=== PATIENT | female | born 1965 | race Caucasian/White ===

== ENCOUNTER 2017-12-12 14:17 | Inpatient (IN) | payer MEDICAID, OTHER ==
[~2017-12-12] VITALS: Ht 160 cm; Wt 79.4 kg
[~2017-12-12 14:17] MED LIST: ZOLOFT
[2017-12-12 15:10] LABS: Urine Bacteria FEW /hpf (None Seen); Urine Blood 2+ /uL (Negative); Urine Mucus FEW (None Seen); Urine Specific Gravity 1.014 (1.001-1.035); Urine WBC 7 /hpf (0 - 5)
[2017-12-12 15:12] LABS: Basophils # (auto) 0.1 uL; Basophils % (auto) 0.4 % (0.0-2.0); Eosinophils # (auto) 0 uL; Eosinophils % (auto) 0.1 % (0.0-7.0); Hematocrit 39.5 % (36.0-46.0); Hemoglobin 13.3 g/dL (12.2-16.2); Lymphocytes # (auto) 0.7 uL; Lymphocytes % (auto) 4.5 % (10.0-50.0); Mean Corpuscular Hemoglobin 30.6 pg (28.0-32.0); Mean Corpuscular Hgb Conc. 33.6 g/dL (32.0-36.0); Mean Corpuscular Volume 90.9 fL (80.0-100.0); Monocytes # (auto) 0.7 uL; Monocytes % (auto) 4.8 % (0.0-12.0); Neutrophils # (auto) 13.8 uL; Neutrophils % (auto) 90.2 % (37.0-80.0); Nucleated Red Blood Cells % 0.1 %; Platelet Count (auto) 205 10^3/uL (140-450); Red Blood Cells 4.35 10^6/uL (4.0-5.20); Red Cell Distribution Width 13.9 % (11.8-14.3); White Blood Cell 15.2 10^3/uL (4.4-10.8)
[2017-12-12] MEDS ORDERED: KETOROLAC TROMETH 30 MG/ML 1ML VIAL IV ONE (15:30)
[2017-12-12 15:34] LABS: Calcium 8.9 mg/dL (8.5-10.1); Potassium 3.6 mmol/L (3.5-5.1)
[2017-12-12 15:40] LABS: BUN/Creatinine Ratio 14.7; Bilirubin, Total 0.6 mg/dL (0.2-1.0); Total Protein 7.9 g/dL (6.4-8.2)
[2017-12-12] MEDS ORDERED: SODIUM CHLORIDE 0.9% 1,000 ML IV ONE ×2 (15:40)
[2017-12-12] MEDS ORDERED: cefTRIAXone 1GM/50ML D5W 50 ML IV ONE (15:45)
[2017-12-12] MEDS ORDERED: MORPHINE SULFATE 4 MG/ML SYR/VIAL IV ONE ×2 (17:30→21:15)
[2017-12-12] MEDS ORDERED: ONDANSETRON HCL 4 MG/2 ML VIAL IV ONE (17:30)
[2017-12-12] MEDS ORDERED: ACETAMINOPHEN 325 MG TAB PO PRN (19:15)
[2017-12-12] MEDS ORDERED: DOCUSATE SOD 100 MG CAP PO PRN (19:15)
[2017-12-12] MEDS ORDERED: TEMAZEPAM 15 MG CAP PO PRN (19:15)
[2017-12-12] MEDS: MORPHINE SULFATE 4 MG/ML SYR/VIAL IV PRN (20:02)
[2017-12-12] MEDS: ONDANSETRON HCL 4 MG/2 ML VIAL IV PRN (20:03)
[2017-12-12] MEDS: SODIUM CHLORIDE 0.9% 1,000 ML IV SCH (21:35)
[2017-12-12 22:00] VITALS: BP 131/81
[2017-12-12] MEDS: FAMOTIDINE 20 MG TAB PO SCH (22:15)
[2017-12-12] MEDS: HYDROcodone-ACET 5/325MG TAB PO PRN (22:15)
[2017-12-13] MEDS: MORPHINE SULFATE 4 MG/ML SYR/VIAL IV PRN ×5 (00:06→21:43)
[2017-12-13] MEDS: HYDROcodone-ACET 5/325MG TAB PO PRN ×5 (02:17→23:49)
[2017-12-13] MEDS: SODIUM CHLORIDE 0.9% 1,000 ML IV SCH ×2 (05:13→11:52)
[2017-12-13 05:36] VITALS: BP 103/44
[2017-12-13 05:46] VITALS: BP 113/92
[2017-12-13 06:13] LABS: Basophils # (auto) 0 uL; Basophils % (auto) 0.1 % (0.0-2.0); Eosinophils # (auto) 0 uL; Eosinophils % (auto) 0.1 % (0.0-7.0); Hemoglobin 11.6 g/dL (12.2-16.2); Lymphocytes # (auto) 0.8 uL; Lymphocytes % (auto) 4.8 % (10.0-50.0); Mean Corpuscular Hemoglobin 30.5 pg (28.0-32.0); Mean Corpuscular Hgb Conc. 33.1 g/dL (32.0-36.0); Mean Corpuscular Volume 92.3 fL (80.0-100.0); Monocytes # (auto) 0.7 uL; Monocytes % (auto) 4.3 % (0.0-12.0); Neutrophils # (auto) 15.3 uL; Neutrophils % (auto) 90.7 % (37.0-80.0); Platelet Count (auto) 174 10^3/uL (140-450); Red Cell Distribution Width 14.3 % (11.8-14.3); White Blood Cell 16.9 10^3/uL (4.4-10.8)
[2017-12-13 06:27] LABS: Potassium 4.2 mmol/L (3.5-5.1)
[2017-12-13 06:30] LABS: BUN/Creatinine Ratio 12.7; Calcium 7.5 mg/dL (8.5-10.1)
[2017-12-13 06:43] LABS: Bilirubin, Total 0.4 mg/dL (0.2-1.0); Total Protein 6.3 g/dL (6.4-8.2)
[2017-12-13] MEDS ORDERED: LEVOTHYROXINE SODIUM 25 MCG TAB PO SCH (07:00)
[2017-12-13] MEDS: FAMOTIDINE 20 MG TAB PO SCH ×2 (08:10→21:50)
[2017-12-13 08:29] VITALS: BP 126/75
[2017-12-13] MEDS ORDERED: cefTRIAXone 1GM/50ML D5W 50 ML IV SCH (09:00)
[2017-12-13] MEDS ORDERED: MULTIPLE VITAMIN TAB PO SCH (10:00)
[2017-12-13 12:50] VITALS: BP 133/77
[2017-12-13] MEDS ORDERED: MANNITOL FTV 25% 12.5 GM/50 ML 50 ML IV ONE (13:30)
[2017-12-13] MEDS ORDERED: LEVO25TA6 PO (13:55)
[2017-12-13] MEDS: ONDANSETRON HCL 4 MG/2 ML VIAL IV PRN ×2 (15:35→20:47)
[2017-12-13 16:32] VITALS: BP 155/94
[2017-12-13] MEDS ORDERED: TAMSULOSIN HYDROCHLORIDE 0.4 MG CAP PO SCH (21:00)
[2017-12-13 22:00] VITALS: BP 153/84
== END 2017-12-13 23:58 | disposition short-term general hospital (02) | DRG 690 ==
LOC: ER 14:17 → OVERFLOW 14:18 → CENTRAL 20:30
PROVIDERS: ADMIT Internal Medicine; ATTEND Internal Medicine
DX: N13.6 Pyonephrosis (principal); E87.1 Hypo-osmolality and hyponatremia; E78.5 Hyperlipidemia, unspecified; E03.9 Hypothyroidism, unspecified; I70.90 Unspecified atherosclerosis; N18.2 Chronic kidney disease, stage 2 (mild); Z82.49 Family history of ischemic heart disease and other diseases of the circulatory system; Z87.442 Personal history of urinary calculi; Z79.899 Other long term (current) drug therapy; Z90.49 Acquired absence of other specified parts of digestive tract
CPT/HCPCS: 36415; 74176; 80053; 81001; 85025; 87086; 93005; 96361; 96374; 96375; J0696; J1885; J2405

== ENCOUNTER 2018-10-06 23:31 | Inpatient (IN) | payer OTHER ==
[~2018-10-06] VITALS: Ht 160 cm; Wt 74.4 kg
[~2018-10-06 23:31] MED LIST changes: +LEVO25TA6 PO; -ZOLOFT
[2018-10-07 00:14] LABS: Urine Amorphous Crystal MANY /hpf (None Seen); Urine Bacteria FEW /hpf (None Seen); Urine Blood 1+ /uL (Negative); Urine Specific Gravity 1.014 (1.001-1.035); Urine WBC 16 /hpf (0 - 5)
[2018-10-07 00:22] LABS: Basophils # (auto) 0 uL; Basophils % (auto) 0.2 % (0.0-2.0); Eosinophils # (auto) 0.1 uL; Eosinophils % (auto) 0.6 % (0.0-7.0); Hematocrit 38.6 % (36.0-46.0); Hemoglobin 12.7 g/dL (12.2-16.2); Lymphocytes # (auto) 1.5 uL; Lymphocytes % (auto) 12.1 % (10.0-50.0); Mean Corpuscular Hemoglobin 29.7 pg (28.0-32.0); Mean Corpuscular Hgb Conc. 32.9 g/dL (32.0-36.0); Mean Corpuscular Volume 90.2 fL (80.0-100.0); Monocytes # (auto) 0.4 uL; Monocytes % (auto) 3.4 % (0.0-12.0); Neutrophils # (auto) 10.3 uL; Neutrophils % (auto) 83.7 % (37.0-80.0); Platelet Count (auto) 243 10^3/uL (140-450); Red Blood Cells 4.27 10^6/uL (4.0-5.20); Red Cell Distribution Width 13.3 % (11.8-14.3); White Blood Cell 12.3 10^3/uL (4.4-10.8)
[2018-10-07 00:37] LABS: Albumin 3.9 g/dL (3.4-5.0); Calcium 9.3 mg/dL (8.5-10.1); Potassium 3.9 mmol/L (3.5-5.1)
[2018-10-07 00:39] LABS: BUN/Creatinine Ratio 21.6
[2018-10-07 00:42] LABS: Bilirubin, Total 0.2 mg/dL (0.2-1.0); Total Protein 7.5 g/dL (6.4-8.2)
[2018-10-07] MEDS ORDERED: LEVOFLOXACIN 750MG 150 ML IV ONE (03:30)
[2018-10-07] MEDS ORDERED: fentaNYL CITRATE 100 MCG/2 ML VL IV ONE (03:30)
[2018-10-07] MEDS ORDERED: KETOROLAC TROMETH 15 mg/ml 1ML VL IV ONE ×2 (03:30→14:00)
[2018-10-07] MEDS ORDERED: KETOROLAC TROMETH 30 MG/ML 1ML VIAL ONE (03:40)
[2018-10-07] MEDS ORDERED: SODIUM CHLORIDE 0.9% 1,000 ML IV ONE ×3 (06:47→08:31)
[2018-10-07] MEDS ORDERED: NITROGLYCERIN 0.4 MG SL TAB SL PRN (07:00)
[2018-10-07] MEDS ORDERED: MORPHINE SULFATE 4 MG/ML SYR/VIAL IV PRN (07:00)
[2018-10-07] MEDS ORDERED: TEMAZEPAM 15 MG CAP PO PRN (07:00)
[2018-10-07] MEDS ORDERED: ACETAMINOPHEN 325 MG TAB PO PRN (07:00)
[2018-10-07] MEDS ORDERED: MORPHINE SULF INJ 2 MG/ML SYRINGE 1ML IV PRN (07:00)
[2018-10-07] MEDS ORDERED: DOCUSATE SOD 100 MG CAP PO PRN (07:00)
[2018-10-07] MEDS ORDERED: ONDANSETRON HCL 4 MG/2 ML VIAL IV PRN (07:00)
[2018-10-07] MEDS: FAMOTIDINE 20 MG TAB PO SCH ×2 (09:53→21:42)
[2018-10-07] MEDS: amLODIPine BESYLATE 5 MG TAB PO SCH (09:53)
[2018-10-07] MEDS: ZINC SULFATE 220mg CAP or TAB PO SCH (09:53)
[2018-10-07] MEDS: ENOXAPARIN SOD 40 MG/0.4 ML SYRINGE SC SCH (09:54)
[2018-10-07] MEDS: ASCORBIC ACID 500 MG TAB PO SCH ×2 (09:54→21:42)
[2018-10-07] MEDS ORDERED: cefTRIAXone 1GM/50ML D5W 50 ML IV ONE (10:00)
[2018-10-07] MEDS: SODIUM CHLORIDE 0.9% 1,000 ML IV SCH ×2 (10:34→16:25)
[2018-10-07 12:00] VITALS: BP 139/78
[2018-10-07 15:46] VITALS: BP 142/79
[2018-10-07] MEDS ORDERED: LEV88T (17:37)
[2018-10-07] MEDS ORDERED: AMLO5TAB15 (17:37)
[2018-10-07] MEDS ORDERED: LORA0.5T12 (17:37)
[2018-10-07] MEDS ORDERED: PRAV20TA3 PO (17:37)
[2018-10-07] MEDS ORDERED: TAMSULOSIN HYDROCHLORIDE 0.4 MG CAP PO SCH (18:00)
[2018-10-07] MEDS ORDERED: LORazepam 0.5 MG TAB PO PRN (18:30)
[2018-10-07 22:00] VITALS: BP 134/82
[2018-10-07] MEDS ORDERED: PRAVASTATIN SODIUM 20 MG TAB PO SCH (22:00)
[2018-10-08] MEDS: SODIUM CHLORIDE 0.9% 1,000 ML IV SCH ×2 (00:29→08:47)
[2018-10-08 05:00] VITALS: BP 130/83
[2018-10-08 05:50] LABS: Basophils # (auto) 0.1 uL; Basophils % (auto) 1.2 % (0.0-2.0); Eosinophils # (auto) 0.2 uL; Eosinophils % (auto) 3.2 % (0.0-7.0); Hematocrit 37.6 % (36.0-46.0); Hemoglobin 12.4 g/dL (12.2-16.2); Lymphocytes # (auto) 1.6 uL; Lymphocytes % (auto) 31.8 % (10.0-50.0); Mean Corpuscular Hgb Conc. 33.1 g/dL (32.0-36.0); Mean Corpuscular Volume 90.7 fL (80.0-100.0); Monocytes # (auto) 0.5 uL; Neutrophils # (auto) 2.8 uL; Neutrophils % (auto) 54.8 % (37.0-80.0); Nucleated Red Blood Cells % 0.1 %; Platelet Count (auto) 187 10^3/uL (140-450); Red Blood Cells 4.15 10^6/uL (4.0-5.20); Red Cell Distribution Width 13.2 % (11.8-14.3); White Blood Cell 5.1 10^3/uL (4.4-10.8)
[2018-10-08 06:35] LABS: Albumin 3.1 g/dL (3.4-5.0); BUN/Creatinine Ratio 14.1; Calcium 8.4 mg/dL (8.5-10.1); Potassium 3.7 mmol/L (3.5-5.1)
[2018-10-08 06:38] LABS: Bilirubin, Total 0.3 mg/dL (0.2-1.0); Total Protein 6.3 g/dL (6.4-8.2)
[2018-10-08] MEDS ORDERED: LEVOTHYROXINE SODIUM 88 MCG TAB PO SCH (07:00)
[2018-10-08 08:22] VITALS: BP 113/68
[2018-10-08] MEDS ORDERED: cefTRIAXone 1GM/50ML D5W 50 ML IV SCH (09:00)
[2018-10-08] MEDS: ASCORBIC ACID 500 MG TAB PO SCH (09:25)
[2018-10-08] MEDS: FAMOTIDINE 20 MG TAB PO SCH (09:25)
[2018-10-08] MEDS: ZINC SULFATE 220mg CAP or TAB PO SCH (09:26)
[2018-10-08] MEDS: amLODIPine BESYLATE 5 MG TAB PO SCH (09:27)
[2018-10-08] MEDS: ENOXAPARIN SOD 40 MG/0.4 ML SYRINGE SC SCH (10:00)
[2018-10-08] MEDS ORDERED: LEVOFLOXACIN 500 MG TAB PO SCH (12:00)
[2018-10-08 13:00] VITALS: BP 138/80
[2018-10-08 17:15] VITALS: BP 137/84
[2018-10-08 17:44] VITALS: BP 137/54
== END 2018-10-08 18:54 | disposition home or self-care (01) | DRG 690 ==
LOC: ER 23:32 → OVERFLOW 23:33 → CENTRAL 10-07 11:44
PROVIDERS: ADMIT Emergency Medicine; ATTEND Emergency Medicine
DX: N13.6 Pyonephrosis (principal); I10 Essential (primary) hypertension; E78.5 Hyperlipidemia, unspecified; Z87.442 Personal history of urinary calculi; Z82.49 Family history of ischemic heart disease and other diseases of the circulatory system; Z90.49 Acquired absence of other specified parts of digestive tract
CPT/HCPCS: 36415; 74018; 74176; 76775; 80053; 81001; 85025; 96365; 96366; 96367; 96372; G0378; J0696; J1885; J1956

== ENCOUNTER 2018-11-20 06:36 | Emergency (ER) | payer OTHER ==
[~2018-11-20] VITALS: Ht 160 cm; Wt 70.3 kg
[~2018-11-20 06:36] MED LIST changes: +AMLO5TAB15; +LEV88T; +LORA0.5T12; +PRAV20TA3 PO
[2018-11-20 06:53] LABS: Urine WBC None Seen /hpf (0 - 5)
[2018-11-20 07:16] LABS: Urine Bacteria NONE SEEN /hpf (None Seen); Urine Blood Negative /uL (Negative); Urine Specific Gravity 1.007 (1.001-1.035)
[2018-11-20 07:19] LABS: Basophils # (auto) 0 uL; Basophils % (auto) 0.9 % (0.0-2.0); Eosinophils # (auto) 0.2 uL; Eosinophils % (auto) 2.9 % (0.0-7.0); Hemoglobin 13.6 g/dL (12.2-16.2); Lymphocytes # (auto) 1.3 uL; Lymphocytes % (auto) 23.5 % (10.0-50.0); Mean Corpuscular Hemoglobin 29.6 pg (28.0-32.0); Mean Corpuscular Hgb Conc. 33.1 g/dL (32.0-36.0); Mean Corpuscular Volume 89.4 fL (80.0-100.0); Monocytes # (auto) 0.3 uL; Neutrophils # (auto) 3.7 uL; Neutrophils % (auto) 66.7 % (37.0-80.0); Platelet Count (auto) 241 10^3/uL (140-450); Red Blood Cells 4.58 10^6/uL (4.0-5.20); Red Cell Distribution Width 13.7 % (11.8-14.3); White Blood Cell 5.5 10^3/uL (4.4-10.8)
[2018-11-20 07:35] LABS: Albumin 3.9 g/dL (3.4-5.0); BUN/Creatinine Ratio 14.9; Calcium 9.3 mg/dL (8.5-10.1); Potassium 3.8 mmol/L (3.5-5.1)
[2018-11-20 07:37] LABS: Bilirubin, Total 0.4 mg/dL (0.2-1.0); Total Protein 7.4 g/dL (6.4-8.2)
[2018-11-20] MEDS ORDERED: SODIUM CHLORIDE 0.9% 1,000 ML IV ONE ×2 (09:58)
[2018-11-20] MEDS ORDERED: TAMSULOSIN HYDROCHLORIDE 0.4 MG CAP PO ONE (10:00)
[2018-11-20] MEDS ORDERED: KETOROLAC TROMETH 30 MG/ML 1ML VIAL IV ONE (10:00)
[2018-11-20] MEDS ORDERED: cloNIDine HCL 0.1 MG TAB PO ONE (10:00)
[2018-11-20 11:50] VITALS: BP 120/68
== END 2018-11-20 12:50 | disposition home or self-care (01) ==
LOC: ER 06:41
DX: N20.0 Calculus of kidney (principal); I10 Essential (primary) hypertension; E78.5 Hyperlipidemia, unspecified; Z90.89 Acquired absence of other organs
CPT/HCPCS: 36415; 74176; 80053; 81001; 84443; 85025; 96360; 99284; J7030

== ENCOUNTER 2024-03-23 13:45 | Inpatient (IN) | payer BC, OTHER ==
[~2024-03-23] VITALS: Ht 157.5 cm; Wt 80.7 kg
[~2024-03-23 13:45] MED LIST changes: +AMLO1TAB22 PO; -AMLO5TAB15; -LEV88T; +LEVO-177; +LORA-1121; -LORA0.5T12
--- NOTE | 2024-03-23 14:11 | ECG ---
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
--- NOTE | 2024-03-23 14:27 | DVH ---
EXAM: XY CHEST TWO VIEWS ROUTINE CLINICAL HISTORY: sob COMPARISON: None TECHNIQUE: Frontal and lateral view of the chest was obtained FINDINGS: Lines and Tubes: None Lungs: No focal consolidation. Pleura: No effusion. No pneumothorax. Cardiomediastinal contours: Unremarkable Bones: No acute osseous abnormality. IMPRESSION: No acute cardiopulmonary disease.
[2024-03-23 15:29] LABS: Basophils # (auto) 0 10 ^3/uL (0-0.2); Basophils % (auto) 0.3 % (0.0-2.0); Eosinophils # (auto) 0 10 ^3/uL (0-0.8); Hematocrit 38.5 % (36.0-46.0); Hemoglobin 12.8 g/dL (12.2-16.2); Lymphocytes # (auto) 0.7 10 ^3/uL (0.4-5.4); Lymphocytes % (auto) 17.3 % (10.0-50.0); Mean Corpuscular Hemoglobin 30.1 pg (28.0-32.0); Mean Corpuscular Hgb Conc. 33.2 g/dL (32.0-36.0); Mean Corpuscular Volume 90.7 fL (80.0-100.0); Monocytes # (auto) 0.1 10 ^3/uL (0-1.3); Monocytes % (auto) 2.7 % (0.0-12.0); Neutrophils % (auto) 79.7 % (37.0-80.0); Nucleated Red Blood Cells % 0.1 %; Platelet Count (auto) 137 10^3/uL (140-450); Red Blood Cells 4.25 10^6/uL (4.0-5.20); Red Cell Distribution Width 14.8 % (11.8-14.3); White Blood Cell 3.8 10^3/uL (4.4-10.8)
[2024-03-23 15:35] LABS: Alanine Aminotransferase 17 U/L (7-40); Alkaline Phosphatase 105 U/L (46-116); Anion Gap 6 (5-15); Aspartate Aminotransferase 31 U/L (13-40); BUN/Creatinine Ratio 19.1 (10.0-20.0); Blood Urea Nitrogen 17 mg/dL (9-23); Calcium 8.7 mg/dL (8.7-10.4); Carbon Dioxide 26 mmol/L (20-31); Chloride 107 mmol/L (98-107); Sodium 139 mmol/L (136-145)
[2024-03-23] MEDS: ALBUTEROL SULF 2.5 MG/0.5ML(0.5%) NEB SOLN NEB ONE (15:42)
[2024-03-23] MEDS: IPRATROPIUM BROM 0.5 MG/2.5ML INH SOL NEB ONE (15:42)
[2024-03-23 15:47] LABS: Bilirubin, Total 0.2 mg/dL (0.2-1.0); Glucose 117 mg/dL (74-106); Potassium 3.3 mmol/L (3.5-5.1)
--- NOTE | 2024-03-23 15:55 | ED.PDOC ---
History of Present Illness HPI Comments 59-year-old female presents with a chief complaint of SOB and flu-like symptoms since Tuesday. Patient reports that she tested positive for COVID-19 on Thursday March 21, 2024. Patient is complaining of SOB and sating 87-89% on room air. Patient was placed on 4L/NC and is now sating at 96%. Patient reports the she also has a cough, body aches, and chills, and intermittent fevers. No other symptoms or modifying factors present at this time. Chief Complaint: Shortness of Breath Time Seen by MD: 15:05 Primary Care Provider: LUCIEN Reviewed Notes: Medications, Allergies Allergies: Coded Allergies: NO KNOWN ALLERGIES (Unverified , 12/19/11) Home Meds Reported Medications Pravastatin Sodium (PRAVACHOL TABLET) 20 Mg Tb, 10 MG PO DAILY, #30 TAB 5 Refills 10/07/18 Amlodipine Besylate (Amlodipine Besylate) 5 Mg Tab 10/07/18 Levothyroxine Sodium (Levothyroxine Sodium) 88 Mcg Tab 10/07/18 Lorazepam (ATIVAN TABLET) 0.5 Mg Tb 10/07/18 Levothyroxine Sodium (Levothyroxine Sodium) 25 Mcg Tab, 25 MCG PO QAM, MCG 12/13/17 Information Source: Patient Mode of Arrival: Ambulatory Severity: Moderate Timing: Days Duration: Since onset Prehospital treatment: None Past Medical History PAST MEDICAL HISTORY: High Lipids, HTN, Kidney Stones, Thyroid Surgical History: Appendectomy BEHAVIORAL SCIENCE CHAIR History: Denies all BEHAVIORAL SCIENCE CHAIR Hx Family History Family History: Reviewed,noncontributory to illness Social History Smoker: Non-Smoker Alcohol: Rarely Drugs: Denies Drug Use Lives In: Home Constitutional: reports: chills; denies: diaphoresis, fatigue, fever, malaise, sweats, weakness, others EENTM: denies: blurred vision, double vision, ear bleeding, ear discharge, ear drainage, ear pain, ear ringing, eye pain, eye redness, hearing loss, mouth charlene n, mouth swelling, nasal discharge, nose bleeding, nose congestion, nose pain, photophobia, tearing, throat pain, throat swelling, voice changes, others Respiratory: reports: cough, shortness of breath; denies: hemoptysis, orthopnea, SOB at rest, SOB with excertion, stridor, wheezing, others Cardiovascular: denies: chest pain, dizzy spells, diaphoresis, Dyspnea on exertion, edema, irregular heart beat, left arm pain, lightheadedness, palpitations, PND, syncope, others Gastrointestinal: denies: abdomen distended, abdominal pain, blood streaked bowels, constipated, diarrhea, dysphagia, difficulty swallowing, hematemesis, melena, nausea, poor appetite, poor fluid intake, rectal bleeding, rectal pain, vomiting, others Genitourinary: denies: abnormal vagina bleeding, burning, dyspareunia, dysuria, flank pain, frequency, hematuria, incontinence, pain, , vagina discharge, urgency, others Neurological: denies: dizziness, fainting, headache, left sided numbness, left sided weakness, numbness, paresthesia, pre-existing deficit, right sided numbness, right sided weakness, seizure, speech problems, tingling, tremors, weakness, others Musculoskeletal: denies: back pain, gout, joint pain, joint swelling, muscle pain, muscle stiffness, neck pain, others Integumetry: denies: bruises, change in color, change in hair/nails, dryness, laceration, lesions, lumps, rash, wounds, others Allergic/Immunocompromised: denies: Difficulty Healing, Frequent Infections, Hives, Itching, others Hematologic/Lymphatic: denies: anemia, blood clots, easy bleeding, easy bruising, swollen glands, others Endocrine: denies: excessive hunger, excessive sweating, excessive thirst, excessive urination, flushing, intolerance to cold, intolerance to heat, unexplained weight gain, unexplained weight loss, others Psychiatric: denies: anxiety, bipolar disorder, depression, hopeless, panic disorder, schizophrenia, sleepless, suicidal, others All Other Systems: Reviewed and Negative Physical Exam General Appearance: Moderate Distress, Normal HEENT: Normal ENT Inspection, Pharynx Normal, TMs Normal Neck: Full Range of Motion, Non-Tender, Normal, Normal Inspection Respiratory: Chest Non-Tender, Rhonchi, Other (ON 4L via NC ) Cardiovascular: No Edema, No JVD, No Murmur, No Gallop, Normal Peripheral Pulses, Regular Rate/Rhythm Breast Exam: Deferred Gastrointestinal: No Organomegaly, Non Tender, No Pulsatile Mass, Normal Bowel Sounds, Soft Genitalia: Deferred Pelvic: Deferred Rectal: Deferred Extremities: No calf tenderness, Normal capillary refill, Normal inspection, Normal range of motion, Non-tender, No pedal edema Musculoskeletal : Apperance: Normal Neurologic: Alert, 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 Was a procedure done?: No EKG EKG : Pulse Rate (adult): 118 [place]: Normal Cardiac Rhythm: ST, PVC's Block: None Hypertrophy: None ST: Normal Differential Dx Considerations may include: Pneumonia, COVID pneumonia, bronchiolitis, reactive airway disease, PE X-Ray, Labs, Meds, VS Vital Signs Date Time Temp Pulse Resp B/P (MAP) Pulse Ox O2 Delivery O2 Flow Rate FiO2 03/23/24 16:29 84 18 97 Room Air* 0 21 03/23/24 16:20 84 17 95 Nasal Cannula 4.0 03/23/24 16:20 98.9 84 18 111/61 (78) 95 98.9 03/23/24 15:55 118 03/23/24 15:43 Nasal Cannula* 4 36 03/23/24 14:10 118 03/23/24 14:02 20 96 Nasal Cannula 4.0 03/23/24 14:02 99.9 56 20 106/47 (66) 89 Lab Test 03/23/24 15:50 03/23/24 14:39 Range/Units Troponin I High Sensitivity 4 3 L </=34 ng/L White Blood Count 3.8 L 4.4-10.8 10^3/uL Red Blood Count 4.25 4.0-5.20 10^6/uL Hemoglobin 12.8 12.2-16.2 g/dL Hematocrit 38.5 36.0-46.0 % Mean Corpuscular Volume 90.7 80.0-100.0 fL Mean Corpuscular Hemoglobin 30.1 28.0-32.0 pg Mean Corpuscular Hemoglobin Concent 33.2 32.0-36.0 g/dL Red Cell Distribution Width 14.8 H 11.8-14.3 % Platelet Count 137 L 140-450 10^3/uL Mean Platelet Volume 7.7 6.9-10.8 fL Neutrophils (%) (Auto) 79.7 37.0-80.0 % Lymphocytes (%) (Auto) 17.3 10.0-50.0 % Monocytes (%) (Auto) 2.7 0.0-12.0 % Eosinophils (%) (Auto) 0.0 0.0-7.0 % Basophils (%) (Auto) 0.3 0.0-2.0 % Neutrophils # (Auto) 3.0 1.6-8.6 10 ^3/uL Lymphocytes # (Auto) 0.7 0.4-5.4 10 ^3/uL Monocytes # (Auto) 0.1 0-1.3 10 ^3/uL Eosinophils # (Auto) 0 0-0.8 10 ^3/uL Basophils # (Auto) 0 0-0.2 10 ^3/uL Nucleated Red Blood Cells 0.1 % D-Dimer, Quantitative 0.63 H 0.0-0.49 mg/L FEU Sodium Level 139 136-145 mmol/L Potassium Level 3.3 L 3.5-5.1 mmol/L Chloride Level 107 98-107 mmol/L Carbon Dioxide Level 26 20-31 mmol/L Anion Gap 6 5-15 Blood Urea Nitrogen 17 9-23 mg/dL Creatinine 0.89 0.550-1.02 mg/dL Glomerular Filtration Rate Calc 74 >90 mL/min BUN/Creatinine Ratio 19.1 10.0-20.0 Serum Glucose 117 H 74-106 mg/dL Calcium Level 8.7 8.7-10.4 mg/dL Total Bilirubin 0.2 0.2-1.0 mg/dL Aspartate Amino Transferase (AST) 31 13-40 U/L Alanine Aminotransferase (ALT) 17 7-40 U/L Alkaline Phosphatase 105 46-116 U/L B-Type Natriuretic Peptide 168.76 0-100 pg/mL Total Protein 6.0 5.7-8.2 g/dL Albumin 4.0 3.2-4.8 g/dL Current Medications Medications (Trade) Dose Ordered Sig/Saturnino Route Start Time Stop Time Status Last Admin Sodium Chloride 500 ml @ 500 mls/hr Q1H ONCE IV 03/23/24 15:15 03/23/24 16:14 DC 03/23/24 16:13 Albuterol (Ventolin Medneb) 5 mg ONCE ONCE NEB 03/23/24 15:30 03/23/24 15:31 DC 03/23/24 15:42 Ipratropium Pillager (Atrovent Medneb) 0.5 mg ONCE ONCE NEB 03/23/24 15:30 03/23/24 15:31 DC 03/23/24 15:42 Dexamethasone Sodium Phosphate (Decadron Injection) 10 mg ONCE ONCE IV 03/23/24 15:30 03/23/24 15:31 DC 03/23/24 16:05 PATIENT: GALO PENALOZA: [id number]: [id number] : 1965 LOC: ER ROOM / BED: / AGE / SEX: 59 / F ADM STATUS: REG ER SERVICE 1353 ORDERING PHYSICIAN: CONNOR ROCHA MD PROCEDURE(s): CXR2 - CHEST TWO VIEWS ROUTINE REASON: sob ORDER NUMBER(s): [id number], ACCESSION NUMBER(s): [id number] EXAM: XY CHEST TWO VIEWS ROUTINE CLINICAL HISTORY: sob COMPARISON: None TECHNIQUE: Frontal and lateral view of the chest was obtained FINDINGS: Lines and Tubes: None Lungs: No focal consolidation. Pleura: No effusion. No pneumothorax. Cardiomediastinal contours: Unremarkable Bones: No acute osseous abnormality. IMPRESSION: No acute cardiopulmonary disease. ATED BY: LIO CUELLO MD DICTATED DATE/TIME: 03/23/241425 SIGNED BY: LIO CUELLO MD SIGNED DATE/TIME: 03/23/241425 59-year-old female presents here with shortness of breath. She is known to be positive for COVID at outside facility. She states that she has been having chest discomfort and shortness of breath. She was found to be saturating in the 80s. Was placed on oxygen here in the ER. Patient has been given ipratropium and albuterol in the ER. D-dimer has been ordered and is elevated. I consider ed possible PE and a CT angio has been ordered and is pending. Chest x-ray with no evidence of acute pneumonia. At this time hospitalist team has been consulted for admission. Time of 1ST Reevaluation: 16:01 Reevaluation 1ST: Unchanged Patient Education/Counseling: Diagnosis, Treatment, Prognosis Family Education/Counseling: Diagnosis, Treatment, Prognosis Departure 1 Departure Time of Disposition: 16:55 Impression: Primary Impression: Hypoxia Disposition: 30 STILL A PATIENT Admit to: Tele Condition: Guarded Critical Care Note Critical Care Time?: No Stability Stability form required: No Heart Score Heart Score: Heart Score Response (Comments) Value History N/A 0 EKG N/A 0 Age N/A 0 Risk Factors N/A 0 Troponin N/A 0 Total 0 I personally scribed for CONNOR ROCHA MD ([email or web address]) on 03/23/24 at 15:55. Electronically submitted by Jay Jay Hilton ([email or web address]). I personally scribed for CONNOR ROCHA MD ([email or web address]) on 03/23/24 at 15:56. Electronically submitted by Jay Jay Hilton ([email or web address]). I personally scribed for CONNOR ROCHA MD ([email or web address]) on 03/23/24 at 17:09. Electronically submitted by Jay Jay Hilton ([email or web address]). CONNOR ROCHA MD Mar 23, 2024 15:55
[2024-03-23] MEDS: DexAMETHasone SOD PHOS 10MG/1ML VIAL INJ IV ONE (16:05)
[2024-03-23] MEDS: SODIUM CHLORIDE 0.9% 500 ML IV ONE (16:13)
[2024-03-23 16:29] VITALS: PULSE 84; RESP 18; O2SAT 97
[2024-03-23] MEDS: IOHEXOL 350 MG/ML 100ML IJ ONE (21:39)
--- NOTE | 2024-03-23 22:26 | DVH ---
Procedure: CT CT ANGIO CHEST CONTRAST Reason for study/Clinical History: ro PE Comparison Study: None available at time of dictation. Exam Date: 03/23/2024 09:36 PM Radiation Dose Information: CT Dose: CTDI volume is 20.29 mGy. Dose-length product is 1506.22 mGy*cm Contrast: Type of contrast: Omnipaque 350 Contrast inject: 100 mL Contrast wasted:0 TECHNIQUE: After the uneventful administration of intravenous contrast intravenously, CT imaging was performed through the chest. Coronal and sagittal reformations were performed by the technologist. Sagittal and coronal MIP images were submitted for evaluation. FINDINGS: Lower Neck: Visualized portions of the thyroid gland are unremarkable. Aorta and Vasculature: Normal caliber of thoracic aorta. Lymph Nodes: No enlarged intrathoracic lymph nodes. Mediastinum: Heart size is normal. There is no pericardial effusion. The esophagus is unremarkable. Lungs: Airspace disease posterior costophrenic angles bilaterally pleural effusion or significant pne umothorax. No suspicious pulmonary nodule or mass. Musculoskeletal: No acute osseous abnormality. Osseous hemangioma at T11 Upper abdomen: Limited portions of the upper abdomen are unremarkable. IMPRESSION: 1. Airspace disease in the posterior costophrenic angles bilaterally. 2. No findings of pulmonary artery hypertension. 3. No findings of pulmonary emboli. All CT scans at this medical facility are performed using dose modulation techniques as appropriate t o a performed exam including the following: Automated exposure control was utilized; adjustment of th e MA and/or KV according to patient size; and use of iterative reconstruction technique.
--- NOTE | 2024-03-23 22:44 | DVHHPRES ---
History of Present Illness Resident Creating Document: ALICE GARY RESDIENT History of Present Illness This is a 59-year-old female past medical history of hypothyroidism, hypertension, dyslipidemia and kidney stone came to the hospital due to shortness of breaths. Per patient, she had fever, chills and body pain 5 days back, when to urgent care, and was recommended doxycycline, zinc and vitamin-D. But her symptoms progressively worsened, and since 2 days she developed shortness of breaths and chest pain. Per patient, the patient was also told of having COVID-19 2 days back. Patient also reports cough, chills, fever and generalized body pain. Patient denies nausea, vomiting, headache, dysuria, or any recent sick contact. PMHx: hypothyroidism, hypertension, dyslipidemia and kidney stone PSHx: Appendectomy Social history: Patient lives with the family at home, ex-smoker, denies any other drug use Home medication: Amlodipine 10 mg, pravastatin, Lexapro, levothyroxine 75 mcg, aspirin Allergic history: No known allergies Review of Systems Review of Systems General: Reports generalized body pain and fever HEENT: No headaches, visiual changes, hearing loss, tinnitus, nasal congestion and discharge, and sore throat. Cardiovascular: Denies chest pain, palpitations, dyspnea on exertion, orthopnea, or claudication. Respiratory: Reports cough, chest pain, and shortness of breaths Gastrointestinal: Denies nausea, vomiting, dysphagia, odynophagia, heartburn, abdominal pain, flatulence, bloating, diarrhea, constipation, change in stool, or blood in stool. Genitourinary: No dysuria, hematuria, discharge, frequency, urgency, nocturia, incontinence, and urinary retention. Endocrine: No heat or cold intolerance, polydipsia, polyuria, and polyphagia. Neurological: No dizziness, extremity weakness and numbness, tremors, gait disturbance, seizures, and memory impairment. Psychiatric: Denies depression, anxiety,or insomnia. Musculoskeletal: Denies neck pain, stiffness and swelling, back pain, muscle weakness, joint pain, stiffness, swelling, or limited range of motion. Skin: No rashes, itching, skin lesion, changes in hair, nail, skin texture and breast. Hematologic/Lymphatic: Denies easy bruising, bleeding tendencies, or lymph node enlargement. Allergies: Coded Allergies: NO KNOWN ALLERGIES (Unverified , 12/19/11) Exam Vital Signs Vital Signs Date Time Temp Pulse Resp B/P (MAP) Pulse Ox O2 Delivery O2 Flow Rate FiO2 03/23/24 21:04 99.7 81 20 114/71 (85) 94 99.7 03/23/24 16:29 Room Air* 0 21 Exam General Appearance: Alert, Oriented X3, Cooperative, in moderate respiratory distress HEENT: Atraumatic, PERRLA, EOMI, Mucous membrane moist/pink Respiratory: Left-sided lower zone crackles, with right-sided mid and lower zone crackles Cardiovascular: Regular rate, Normal S1, Normal S2, No murmurs, no chest wall tenderness Abdominal: Normal bowel sounds, Soft, No tenderness, No hepatospenomegaly, No masses Extremities: No clubbing, No cyanosis, No edema, Normal pulses, No tenderness/swelling Skin: No rashes, No breakdown, No significant lesion Neuro: Normal gait, Normal speech, Strength at 5/5 X4 ext, Normal tone, Sensation intact, Cranial nerves 3-12 NL, Reflexes 2+ Psych/Mental Status: Mental status NL, Mood NL Labs/Xrays Labs Test 03/23/24 20:55 03/23/24 15:50 03/23/24 14:39 Range/Units Urine Test Negative Negative Troponin I High Sensitivity 4 </=34 ng/L Beta HCG, Quantitative 3.8 1.5-4.2 mIU/mL White Blood Count 3.8 L 4.4-10.8 10^3/uL Red Blood Count 4.25 4.0-5.20 10^6/uL Hemoglobin 12.8 12.2-16.2 g/dL Hematocrit 38.5 36.0-46.0 % Mean Corpuscular Volume 90.7 80.0-100.0 fL Mean Corpuscular Hemoglobin 30.1 28.0-32.0 pg Mean Corpuscular Hemoglobin Concent 33.2 32.0-36.0 g/dL Red Cell Distribution Width 14.8 H 11.8-14.3 % Platelet Count 137 L 140-450 10^3/uL Mean Platelet Volume 7.7 6.9-10.8 fL Neutrophils (%) (Auto) 79.7 37.0-80.0 % Lymphocytes (%) (Auto) 17.3 10.0-50.0 % Monocytes (%) (Auto) 2.7 0.0-12.0 % Eosinophils (%) (Auto) 0.0 0.0-7.0 % Basophils (%) (Auto) 0.3 0.0-2.0 % Neutrophils # (Auto) 3.0 1.6-8.6 10 ^3/uL Lymphocytes # (Auto) 0.7 0.4-5.4 10 ^3/uL Monocytes # (Auto) 0.1 0-1.3 10 ^3/uL Eosinophils # (Auto) 0 0-0.8 10 ^3/uL Basophils # (Auto) 0 0-0.2 10 ^3/uL Nucleated Red Blood Cells 0.1 % D-Dimer, Quantitative 0.63 H 0.0-0.49 mg/L FEU Sodium Level 139 136-145 mmol/L Potassium Level 3.3 L 3.5-5.1 mmol/L Chloride Level 107 98-107 mmol/L Carbon Dioxide Level 26 20-31 mmol/L Anion Gap 6 5-15 Blood Urea Nitrogen 17 9-23 mg/dL Creatinine 0.89 0.550-1.02 mg/dL Glomerular Filtration Rate Calc 74 >90 mL/min BUN/Creatinine Ratio 19.1 10.0-20.0 Serum Glucose 117 H 74-106 mg/dL Calcium Level 8.7 8.7-10.4 mg/dL Total Bilirubin 0.2 0.2-1.0 mg/dL Aspartate Amino Transferase (AST) 31 13-40 U/L Alanine Aminotransferase (ALT) 17 7-40 U/L Alkaline Phosphatase 105 46-116 U/L B-Type Natriuretic Peptide 168.76 0-100 pg/mL Total Protein 6.0 5.7-8.2 g/dL Albumin 4.0 3.2-4.8 g/dL Assessment/Plan Assessment/Plan Acute hypoxic respiratory failure, likely due pneumonia Sepsis, likely due to pneumonia Pneumonia, likely due to Gram-positive Gram-negative bacteria/viral Chest x-ray shows bilateral lower zone infiltration Chest CT shows, airspace disease in the posterior costophrenic angles bilaterally Check influenza type a, type B COVID-19, MRSA nares in blood/sputum culture Empiric antibiotics of cefepime and doxycycline Breathing treatment Oxygen through nasal cannula History of hypothyroidism Continue levothyroxine Dyslipidemia continue atorvastatin Hypokalemia, repleted Ruled out pulmonary emboli D-dimer is raised at 0.63 CT angiogram shows no pulmonary emboli DIET: Cardiac diet DVT PROPHYLAXIS: Lovenox CODE STATUS: Goal of care discussed for more than 23 minutes, full DISPOSITION: Med/surge Patient's status and paln discussed with the patient. Case discussed with Dr. Candelario Plan discussed with: Patient, Other (RN) Date of Service: Mar 23, 2024 Billing Provider: CANDY CANDELARIO MD Common Visit Codes: [id number] INP/OBS CARE (HIGH) JUANITA GARYSushila RESDIENT Mar 23, 2024 22:44 CANDY CANDELARIO MD Mar 25, 2024 00:18
[2024-03-23] MEDS ORDERED: NITROGLYCERIN 0.4 MG SL TAB SL PRN (22:45)
[2024-03-23 23:23] VITALS: PULSE 70; RESP 19; O2SAT 93
[2024-03-24] VITALS (15 sets, daily range): BP systolic 92–114; BP diastolic 53–71; PULSE 55–90; RESP 16–18; TEMP 98.4–99.7; O2SAT 91–99
[2024-03-24] MEDS: ACETAMINOPHEN 325 MG TAB PO PRN (00:16)
[2024-03-24] MEDS: SODIUM CHLORIDE 0.9% 1,000 ML IV ONE (00:45)
[2024-03-24] MEDS: CEFEPIME 1GM/ 50ML 50 ML IV ONE (01:12)
[2024-03-24] MEDS: POTASSIUM CHL 20 Meq TABLET PO ONE (01:16)
[2024-03-24] MEDS: ENOXAPARIN SOD 40 MG/0.4 ML SYRINGE SC ONE (01:17)
[2024-03-24] MEDS: DOXYCYCLINE 100MG/100ML 100 ML IV SCH (02:53)
[2024-03-24 03:18] LABS: Basophils # (auto) 0 10 ^3/uL (0-0.2); Basophils % (auto) 0.1 % (0.0-2.0); Eosinophils # (auto) 0 10 ^3/uL (0-0.8); Hematocrit 34.6 % (36.0-46.0); Hemoglobin 11.6 g/dL (12.2-16.2); Lymphocytes # (auto) 0.4 10 ^3/uL (0.4-5.4); Mean Corpuscular Hemoglobin 30.4 pg (28.0-32.0); Mean Corpuscular Hgb Conc. 33.6 g/dL (32.0-36.0); Mean Corpuscular Volume 90.5 fL (80.0-100.0); Monocytes # (auto) 0.1 10 ^3/uL (0-1.3); Monocytes % (auto) 2.8 % (0.0-12.0); Neutrophils # (auto) 3.6 10 ^3/uL (1.6-8.6); Neutrophils % (auto) 88.1 % (37.0-80.0); Nucleated Red Blood Cells % 0.3 %; Platelet Count (auto) 135 10^3/uL (140-450); Red Blood Cells 3.83 10^6/uL (4.0-5.20); Red Cell Distribution Width 14.8 % (11.8-14.3)
[2024-03-24 03:24] LABS: Alanine Aminotransferase 18 U/L (7-40); Albumin 3.8 g/dL (3.2-4.8); Alkaline Phosphatase 90 U/L (46-116); Anion Gap 8 (5-15); Aspartate Aminotransferase 37 U/L (13-40); BUN/Creatinine Ratio 15.7 (10.0-20.0); Blood Urea Nitrogen 11 mg/dL (9-23); Calcium 9.2 mg/dL (8.7-10.4); Carbon Dioxide 24 mmol/L (20-31); Magnesium 1.9 mg/dL (1.6-2.6); Potassium 3.6 mmol/L (3.5-5.1); Sodium 139 mmol/L (136-145)
[2024-03-24 03:28] LABS: Bilirubin, Total 0.2 mg/dL (0.2-1.0); Chloride 107 mmol/L (98-107); Glucose 164 mg/dL (74-106)
[2024-03-24 03:45] LABS: COVID19 ANTIGEN SOFIA FIA NEGATIVE (NEGATIVE); Rapid Influenza A Negative (Negative); Rapid Influenza B Negative (Negative)
[2024-03-24] MEDS: ATORVASTATIN 20 MG TAB PO ONE (04:09)
--- NOTE | 2024-03-24 04:22 | DVH ---
Clinical History: Elevated D-dimer Comparison: None Technique: Duplex Doppler evaluation of the deep venous system of the right and left left lower extremity from t he common femoral vein to the popliteal vein including color Doppler and spectral/pulsed waveform allie lysis was performed. Findings: The common femoral vein demonstrates appropriate compressibility and waveform variability. There is compressibility/patency of the great saphenous vein at the proximal thigh. The femoral vein demonstrates appropriate compressibility and waveform variability. The deep femoral vein demonstrates appropriate compressibility and waveform variability. The popliteal vein demonstrates appropriate compressibility and waveform variability. There is normal compressibility at the tibioperoneal trunk. Impression: 1. No right or left deep venous thrombosis. 2. If clinical concern/symptoms persist or worsen, short-interval follow-up study is suggested.
[2024-03-24] MEDS: LEVOTHYROXINE SODIUM 25 MCG TAB PO SCH (05:47)
[2024-03-24] MEDS ORDERED: ASPI81CH59 PO (06:12)
[2024-03-24] MEDS ORDERED: ESCI10TA PO (06:12)
[2024-03-24] MEDS: IPRATROPIUM BROM 0.5 MG/2.5ML INH SOL NEB SCH (07:00)
[2024-03-24] MEDS: ALBUTEROL SULF 2.5 MG/0.5ML(0.5%) NEB SOLN NEB SCH (07:00)
[2024-03-24] MEDS: CEFEPIME 1GM/ 50ML 50 ML IV SCH (10:26)
--- NOTE | 2024-03-24 11:19 | DVHPNRES ---
Progress Note Date Seen: Mar 24, 2024 Resident Creating Document: KRISTOFER CHAVES RESIDENT Medical Necessity Reason Pt with a Central, PICC or Fol: No Subjective Review of Systems This is a 59-year-old female past medical history of hypothyroidism, hypertension, dyslipidemia and kidney stone came to the hospital With a chief complaint of shortness of breath for 2 days prior to this admission. the patient stated that she has she had fever, flu-like symptoms 5 days ago went to the urgent care and advised her to take doxycycline drink and vitamin-D but her symptoms progressively getting worse that prompted this visit. She also mentioned for last 2 days shortness of breath getting worse and was not able to go to washroom felt gasping of air, saturation was 84% associated with cough and greenish to brownish sputum. Patient was seen examined at the bedside. she is alert oriented x3 and on 2 L oxygen through nasal cannula with saturation 95%. complains of cough with brownish stool sputum and mentioned felt better than yesterday. Constitutional: No: Fever, Chills, Sweats, Weakness, Malaise, Other Eyes: No: Pain, Vision change, Conjunctivae inflammation, Eyelid inflammation, Other, Redness ENT: No: Ear pain, Ear discharge, Nose pain, Nose discharge, Nose congestion, Mouth pain, Mouth swelling, Throat pain, Throat swelling, Other Respiratory: Shortness of breath, improving Cough, Sputum, No Dry,Wheezing, Hemoptysis, Pleuritic Pain, Wheezing, Other Cardiovascular: No: Chest Pain, Palpitations, Orthopnea, Paroxysmal Noc. Dyspnea, Edema, Lt Headedness, Other Gastrointestinal: No: Nausea, Vomiting, Abdominal Pain, Diarrhea, Constipation, Melena, Hematochezia, Other Musculoskeletal: No: other, neck pain, shoulder pain, arm pain, back pain, hand pain, leg pain, foot pain Neurological:; No: Weakness, Numbness, Incoordination, Change in speech, Confusion, Seizures Objective vital signs Vital Sign Date Time Temp Pulse Resp B/P (MAP) Pulse Ox O2 Delivery O2 Flow Rate FiO2 03/24/24 10:11 55 18 96 03/24/24 10:05 Nasal Cannula 2.0 03/24/24 10:05 28 03/24/24 08:30 98.4 95/55 (68) 98.4 Total Intake and Output 03/23/24 03/23/2425 15:00 23:00 07:00 Intake Total 500 ml 550 ml Balance 500 ml 550 ml medications Current Medications Medications Dose Ordered Sig/Saturnino Route Start Time Stop Time Status Last Admin Dose Admin Nitroglycerin 0.4 mg Q5MINP PRN SL 03/23/24 22:45 Acetaminophen 650 mg Q4HP PRN PO 03/24/24 00:00 03/24/24 00:16 650 MG Enoxaparin Sodium 40 mg DAILY SC 03/25/24 10:00 Cefepime HCl 50 ml @ 100 mls/hr Q8H IV 03/24/24 10:00 03/24/24 10:26 100 MLS/HR Doxycycline Hyclate 100 ml @ 50 mls/hr Q12H IV 03/24/24 01:00 03/24/24 02:53 50 MLS/HR Ipratropium [place] 0.5 mg Q4HWA [facility] 03/24/24 06:00 03/24/24 10:05 0.5 MG Albuterol 2.5 mg Q4HWA [facility] 03/24/24 06:00 03/24/24 10:05 2.5 MG Levothyroxine Sodium 75 mcg QAM@0600 PO 03/24/24 06:00 03/24/24 05:47 75 MCG Atorvastatin Calcium 40 mg HS PO 03/25/24 22:00 Examination Physical examination: General Appearance: Alert, Oriented X3, Cooperative, No acute distress HEENT: Atraumatic, PERRLA, EOMI, Mucous membrane moist/pink Respiratory: Left sided crackles and decreased breath sound on the rt side. Cardiovascular: Regular rate, Normal S1, Normal S2, No murmurs, no chest wall tenderness Abdominal: Normal bowel sounds, Soft, No tenderness, No hepatosplenomegaly, No masses Extremities: No clubbing, No cyanosis, No edema, Normal pulses, No tenderness/swelling Skin: No rashes, No breakdown, No significant lesion Neuro: Normal gait, Normal speech, Strength at 5/5 X4 ext, Normal tone, Sensation intact, grossly intact cranial nerves. Psych/Mental Status: Mental status NL, Mood NL laboratory and microbiology Laboratory Tests 03/24/24 02:35 Test 03/24/24 02:35 Range/Units Serum Glucose 164 H 74-106 mg/dL Labs and/or images reviewed: Labs reviewed by me, Image(s) reviewed by me Problem List/Assessment/Plan Problem List/Assessment/Plan Assessment/Plan # Acute hypoxic respiratory failure, likely due to gram positive/ gram negative pneumonia # Possible SIRS/ Sepsis, secondary to pneumonia # Ruled out Pulmonary embolism - Chest x-ray shows bilateral lower zone infiltration - Chest CTA showed, airspace disease in the posterior costophrenic angles bilaterally, no pulmonary emboli. - COVID-19/ Flu negative , Pending MRSA nares and blood and sputum C/S - IV cefepime 1 g Q 8 hours and IV doxycycline 100 mg b.i.d. - DuoNeb with albuterol and ipratropium q.4 hours - Incentive spirometry. # Hypothyroidism - levothyroxine 75 mcg q.a.m. # Dyslipidemia - atorvastatin 40 mg at HS # Prediabetic, hemoglobin A1c 5.8 % - Counseled patient regarding low carb diet, lifestyle modification and physical exercise DIET: Cardiac diet DVT PROPHYLAXIS: Lovenox CODE STATUS: Goal of care discussed for 20 minutes, full code DISPOSITION: Med/surge Plan discussed with Dr. Guerra Plan discussed with: Patient, Other (RN) My Orders My Orders Orders - KRISTOFER CHAVES RESIDENT Procedure Category Date Status Time Incentive Spirometry ORDERS 03/24/24 Transmitted 09:52 Urinalysis LAB 03/24/24 Uncollected 10:32 Addendum Addendum Addendum I was physically present for the [place] portions of the service provided to patient by THE RESIDENT. I have reviewed the documentation, discussed the case with resident and agree with the resident's documentation except as noted. Also the patient's clinical case was discussed with the patient's nurse. This medical document was created using an electronic medical record system with computerized dictation system. Although this document has been carefully reviewed, there might still be some phonetic and typographical errors. These areas are purely typographical due to imperfections of the software programs, and do not reflect any compromise in the patient's medical care. Late signature. Date of Service: Mar 24, 2024 Billing Provider: EDGAR GUERRA MD Common Visit Codes: [id number] INP/OBS CARE(HIGH) Secondary Visit Codes: [id number] CARE PLAN 30 MINUTES (20 minutes) KRISTOFER CHAVES RESIDENT Mar 24, 2024 11:19 EDGAR GUERRA MD Mar 25, 2024 19:03
[2024-03-24 16:56] LABS: Urine Bacteria None Seen /hpf (None Seen)
[2024-03-24 17:05] LABS: Urine Blood Negative /uL (Negative); Urine Clarity Clear (Clear); Urine Color Light-Yellow (Yellow); Urine Protein, UAD TRACE (Negative); Urine Specific Gravity 1.013 (1.001-1.035); Urine Squamous Epithelial Cell FEW /hpf (<5); Urine Urobilinogen Normal (Negative); Urine WBC 1 /HPF (0-5); Urine pH 6.5 (5.0-9.0)
[2024-03-24] MEDS: PANTOPRAZOLE 40 MG TAB PO ONE (17:12)
[2024-03-24] MEDS: MELATONIN 5 MG TAB PO ONE (22:36)
[2024-03-25] VITALS (18 sets, daily range): BP systolic 93–141; BP diastolic 45–78; PULSE 68–94; RESP 16–22; TEMP 97.8–99.6; O2SAT 83–98
[2024-03-25] MEDS: PANTOPRAZOLE 40 MG TAB PO SCH (05:36)
[2024-03-25 05:48] LABS: Basophils # (auto) 0 10 ^3/uL (0-0.2); Eosinophils # (auto) 0 10 ^3/uL (0-0.8); Hematocrit 33.9 % (36.0-46.0); Hemoglobin 11.1 g/dL (12.2-16.2); Lymphocytes # (auto) 0.6 10 ^3/uL (0.4-5.4); Lymphocytes % (auto) 11.2 % (10.0-50.0); Mean Corpuscular Hemoglobin 29.5 pg (28.0-32.0); Mean Corpuscular Hgb Conc. 32.8 g/dL (32.0-36.0); Mean Corpuscular Volume 89.9 fL (80.0-100.0); Monocytes # (auto) 0.2 10 ^3/uL (0-1.3); Monocytes % (auto) 3.6 % (0.0-12.0); Neutrophils # (auto) 4.8 10 ^3/uL (1.6-8.6); Neutrophils % (auto) 85.2 % (37.0-80.0); Nucleated Red Blood Cells % 0.2 %; Platelet Count (auto) 172 10^3/uL (140-450); Red Blood Cells 3.77 10^6/uL (4.0-5.20); Red Cell Distribution Width 14.8 % (11.8-14.3); White Blood Cell 5.7 10^3/uL (4.4-10.8)
[2024-03-25 06:00] LABS: Sodium 140 mmol/L (136-145)
[2024-03-25 06:01] LABS: Anion Gap 7 (5-15); Carbon Dioxide 26 mmol/L (20-31)
[2024-03-25 06:02] LABS: Calcium 8.9 mg/dL (8.7-10.4)
[2024-03-25 06:07] LABS: BUN/Creatinine Ratio 14.7 (10.0-20.0); Blood Urea Nitrogen 10 mg/dL (9-23)
[2024-03-25 06:10] LABS: Chloride 107 mmol/L (98-107); Glucose 118 mg/dL (74-106)
[2024-03-25] MEDS: ENOXAPARIN SOD 40 MG/0.4 ML SYRINGE SC SCH (09:14)
--- NOTE | 2024-03-25 13:37 | DVHPNRES ---
Progress Note Date Seen: Mar 25, 2024 Resident Creating Document: KALPANA COTTER RESIDENT Has the PT tested + for MRSA If YES, has PT been informed?: No Medical Necessity Reason Pt with a Central, PICC or Fol: No Subjective Review of Systems This is a 59-year-old female past medical history of hypothyroidism, hypertension, dyslipidemia and kidney stone came to the hospital With a chief complaint of shortness of breath for 2 days prior to this admission. the patient stated that she has she had fever, flu-like symptoms 5 days ago went to the urgent care and advised her to take doxycycline drink and vitamin-D but her symptoms progressively getting worse that prompted this visit. She also mentioned for last 2 days shortness of breath getting worse and was not able to go to washroom felt gasping of air, saturation was 84% associated with cough and greenish to brownish sputum. Patient was admitted for further assessment and management. Patient seen and examined at bedside. Patient is alert and oriented in person, place and time. The patient states that respiratory myrick is feeling better compared to admission but states that she felt dizzy this morning while walking to the bathroom. Vitals were checked and patient had blood pressure running in the lower side. We restarted IV fluids at 75 cc/hour. Meanwhile, we will continue the patient on IV doxycycline, cefepime and rest of current medical management. Patient is currently saturating 97% on room air and has no additional complaints. ROS Constitutional: Reports mild dizziness while walking this morning. Denies weight loss, fever and chills. HEENT: Denies changes in vision and hearing. Respiratory: Denies shortness of breath and cough Cardiovascular: Denies chest discomfort or palpitations GI: Denies abdominal pain, nausea, vomiting and diarrhea. : Denies dysuria and urinary frequency. Musculoskeletal: Denies myalgias and joint pain Skin: Denies rash and pruritus. Neurological: Reported dizziness this morning while walking to the bathroom. Denies headache, vision or hearing problems Objective vital signs Vital Sign Date Time Temp Pulse Resp B/P (MAP) Pulse Ox O2 Delivery O2 Flow Rate FiO2 03/25/24 13:00 99.4 94 18 108/64 (79) 93 99.4 03/25/24 09:36 Room Air 0.0 03/25/24 09:36 21 Total Intake and Output 03/24/24 03/24/24 03/25/24 15:00 23:00 07:00 Intake Total 150 ml 1180 ml Balance 150 ml 1180 ml medications Current Medications Medications Dose Ordered Sig/Saturnino Route Start Time Stop Time Status Last Admin Dose Admin Nitroglycerin 0.4 mg Q5MINP PRN SL 03/23/24 22:45 Acetaminophen 650 mg Q4HP PRN PO 03/24/24 00:00 03/25/24 12:31 650 MG Enoxaparin Sodium 40 mg DAILY SC 03/25/24 10:00 Cefepime HCl 50 ml @ 100 mls/hr Q8H IV 03/24/24 10:00 03/25/24 09:36 100 MLS/HR Doxycycline Hyclate 100 ml @ 50 mls/hr Q12H IV 03/24/24 01:00 03/25/24 12:27 50 MLS/HR Ipratropium [place] 0.5 mg Q4HWA [facility] 03/24/24 06:00 03/25/24 09:36 0.5 MG Albuterol 2.5 mg Q4HWA [facility] 03/24/24 06:00 03/25/24 09:36 2.5 MG Levothyroxine Sodium 75 mcg QAM@0600 PO 03/24/24 06:00 03/25/24 05:36 75 MCG Atorvastatin Calcium 40 mg HS PO 03/25/24 22:00 Pantoprazole Sodium 40 mg DAILY@0600 PO 03/25/24 06:00 03/25/24 05:36 40 MG Acetaminophen/ Hydrocodone Bitart 1 tab Q6HPRN PRN PO 03/24/24 16:45 Sodium Chloride 1,000 ml @ 75 mls/hr [id number] IV 03/25/24 12:15 Examination Physical Examination General: Patient alert and oriented in person, place and time. Patient following commands. HEENT: Normocephalic, atraumatic, moist mucous membranes Respiratory/pulmonary: Clear lungs bilaterally, no associated crackles or wheezes. Cardiovascular: Normal heart sounds S1 and S2 with no associated murmurs Abdomen: Abdomen nondistended, there is no pain to palpation in any of the abdominal quadrants, no palpable masses. Extremities: There is no peripheral edema present at the lower extremities. Peripheral Pulses: 3+ Radial (R). 3+ Radial (L). 3+ Dorsalis pedis (R). 3+ Dorsalis pedis(L) Skin: No rashes or pruritus, there is no sacral edema present at this time. Neurological: Intact cranial nerves with no focal neurologic deficits laboratory and microbiology Laboratory Tests 03/25/24 05:10 Test 03/25/24 05:10 Range/Units Serum Glucose 118 H 74-106 mg/dL Microbiology Date/Time Source Procedure Growth Status 03/23/24 15:56 Blood Blood Culture - Preliminary NO GROWTH AFTER 24 HOURS OF INCUBATION. Resulted Labs and/or images reviewed: Labs reviewed by me, Image(s) reviewed by me Problem List/Assessment/Plan Problem List/Assessment/Plan Assessment/Plan Acute hypoxic respiratory failure, likely due to gram positive/ gram negative pneumonia Possible SIRS/ Sepsis, secondary to pneumonia as above Ruled out Pulmonary embolism - Chest x-ray shows bilateral lower zone infiltration - Chest CTA showed, airspace disease in the posterior costophrenic angles bilaterally, no pulmonary emboli. - Covid/ Flu negative , Blood cultures came back negative. Pending MRSA nares and sputum C/S - IV cefepime 1 g Q 8 hours and IV doxycycline 100 mg b.i.d. - Duoneb with albuterol and ipratropium q.4 hours - Incentive spirometry. -patient mentioned dizziness while walking to the bathroom, vitals were checked and blood pressure was running in the lower side -restart IV fluids at 75 cc/hour -monitor oxygen saturation, currently at room air saturating 94%. History of hypothyroidism -Continue levothyroxine 75 mcg q.a.m. Dyslipidemia -Continue atorvastatin 40 mg at HS Prediabetic, hemoglobin A1c 5.8 - Counseled patient regarding low carb diet, lifestyle modification and physical exercise Plan discussed with Dr. Guerra Plan discussed with: Patient, Other (RN) My Orders My Orders Orders - KALPANA COTTER RESIDENT Procedure Category Date Status Time Sodium Chloride 0.9% PHA 03/25/24 In Process 12:15 Addendum Addendum Addendum I was physically present for the [place] portions of the service provided to patient by THE RESIDENT. I have reviewed the documentation, discussed the case with resident and agree with the resident's documentation except as noted. Also the patient's clinical case was discussed with the patient's nurse. This medical document was created using an electronic medical record system with computerized dictation system. Although this document has been carefully reviewed, there might still be some phonetic and typographical errors. These areas are purely typographical due to imperfections of the software programs, and do not reflect any compromise in the patient's medical care. Late signature. Date of Service: Mar 25, 2024 Billing Provider: EDGAR GUERRA MD Common Visit Codes: [id number] INP/OBS CARE(HIGH) KALPANA COTTER RESIDENT Mar 25, 2024 13:37 EDGAR GUERRA MD Mar 26, 2024 04:34
[2024-03-25] MEDS: SODIUM CHLORIDE 0.9% 1,000 ML IV SCH (13:46)
[2024-03-25] MEDS: HYDROcodone-ACET 5/325MG TAB PO PRN (20:39)
[2024-03-25] MEDS: ATORVASTATIN 20 MG TAB PO SCH (21:44)
[2024-03-25] MEDS: MELATONIN 5 MG TAB PO SCH (21:44)
[2024-03-26] VITALS (26 sets, daily range): BP systolic 101–126; BP diastolic 57–75; PULSE 60–92; RESP 14–28; TEMP 98.1–99.2; O2SAT 60–98
--- NOTE | 2024-03-26 06:18 | DVH ---
EXAM: XR Chest, 1 View CLINICAL INDICATION: Pneumonia TECHNIQUE: Frontal view of the chest. COMPARISON: None FINDINGS: LUNGS AND PLEURAL SPACES: See below. HEART: Cardiomegaly with pulmonary congestion and edema. Superimposed pneumonia cannot be excluded. MEDIASTINUM: Unremarkable. Normal mediastinal contour. BONES/JOINTS: Unremarkable. No acute fracture. OTHER FINDINGS: . IMPRESSION: Cardiomegaly with pulmonary congestion and edema. Superimposed pneumonia cannot be excluded.
[2024-03-26 06:52] LABS: Anion Gap 7 (5-15); Carbon Dioxide 28 mmol/L (20-31); Chloride 106 mmol/L (98-107); Potassium 3.6 mmol/L (3.5-5.1); Sodium 141 mmol/L (136-145)
[2024-03-26 06:58] LABS: BUN/Creatinine Ratio 10.9 (10.0-20.0); Glucose 102 mg/dL (74-106)
[2024-03-26 07:04] LABS: Blood Urea Nitrogen 7 mg/dL (9-23)
[2024-03-26] MEDS: FUROSEMIDE 20 MG/2 ML VIAL IV ONE (09:20)
[2024-03-26] MEDS: PIPERACILLIN-TAZOB 3.375GM 100 ML IV ONE (09:21)
[2024-03-26 11:32] LABS: Base Excess 2.1 mmol/L (-2.0-3.0)
[2024-03-26] MEDS: FUROSEMIDE 40 MG/4 ML VIAL IV ONE (11:37)
[2024-03-26] MEDS: methylPREDNISolone SOD SUCC 40 MG/ML VL IV SCH (11:38)
[2024-03-26] MEDS: FLUCONAZOLE 200MG/100ML 100 ML IV SCH (12:12)
[2024-03-26] MEDS ORDERED: methylPREDNISolone SOD SUCC 40 MG/ML VL IV SCH (13:00)
[2024-03-26] MEDS: PIPERACILLIN-TAZOB 3.375GM 100 ML IV SCH (15:44)
--- NOTE | 2024-03-26 17:28 | DVHPNRES ---
Progress Note Date Seen: Mar 26, 2024 Resident Creating Document: KRISTOFER CHAVES RESIDENT Has the PT tested + for MRSA If YES, has PT been informed?: No Medical Necessity Reason Pt with a Central, PICC or Fol: No Subjective Review of Systems This is a 59-year-old female past medical history of hypothyroidism, hypertension, dyslipidemia and kidney stone came to the hospital With a chief complaint of shortness of breath for 2 days prior to this admission. the patient stated that she has she had fever, flu-like symptoms 5 days ago went to the urgent care and advised her to take doxycycline drink and vitamin-D but her symptoms progressively getting worse that prompted this visit. She also mentioned for last 2 days shortness of breath getting worse and was not able to go to washroom felt gasping of air, saturation was 84% associated with cough and greenish to brownish sputum. Patient was admitted for further assessment and management. Patient was seen and examined on the bedside. last night patient saturation was dropped and RT put the patient on 15 L on non-rebreather mask and in the morning later transferred the patient to the [facility] and patient is currently on 15 L on non-rebreather mask . Switch the patient from IV cefepime to IV Zosyn 3.37 mg Q 8 hours , continue IV doxycycline 100 mg b.i.d and IV methylprednisolone 40 mg b.i.d. Pending sputum culture and blood culture revealed no growth in 72 hours of incubation. Objective vital signs Vital Sign Date Time Temp Pulse Resp B/P (MAP) Pulse Ox O2 Delivery O2 Flow Rate FiO2 03/26/24 16:37 97 Non-Rebreather 15 N/A 03/26/24 15:00 73 24 118/72 (87) 03/26/24 12:00 98.1 98.1 Total Intake and Output 03/25/24 03/25/24 03/26/24 15:00 23:00 07:00 Intake Total 120 ml 1250 ml 900 ml Balance 120 ml 1250 ml 900 ml medications Current Medications Medications Dose Ordered Sig/Saturn[place] Route Start Time Stop Time Status Last Admin Dose Admin Nitroglycerin 0.4 mg Q5MINP PRN SL 03/23/24 22:45 Acetaminophen 650 mg Q4HP PRN PO 03/24/24 00:00 03/26/24 01:55 650 MG Enoxaparin Sodium 40 mg DAILY SC 03/25/24 10:00 03/26/24 11:37 40 MG Doxycycline Hyclate 100 ml @ 50 mls/hr Q12H IV 03/24/24 01:00 03/26/24 12:10 50 MLS/HR Ipratropium [place] 0.5 mg Q4HWA [facility] 03/24/24 06:00 03/26/24 13:43 0.5 MG Albuterol 2.5 mg Q4HWA [facility] 03/24/24 06:00 03/26/24 13:43 2.5 MG Levothyroxine Sodium 75 mcg QAM@0600 PO 03/24/24 06:00 03/26/24 05:29 75 MCG Atorvastatin Calcium 40 mg HS PO 03/25/24 22:00 03/25/24 21:44 40 MG Acetaminophen/ Hydrocodone Bitart 1 tab Q6HPRN PRN PO 03/24/24 16:45 03/26/24 15:54 1 TAB Melatonin 5 mg HS PO 03/25/24 22:00 03/25/24 21:44 5 MG Piperacillin Sod/ Tazobactam Sod 100 ml @ 25 mls/hr Q8HR IV 03/26/24 16:00 03/26/24 15:44 25 MLS/HR Pantoprazole Sodium 40 mg DAILY IV 03/27/24 10:00 Methylprednisolone Sodium Succinate 40 mg BID IV 03/26/24 10:30 03/26/24 11:38 40 MG Fluconazole 200 mg DAILY PO 03/27/24 10:00 Examination Physical examination: General Appearance: Alert, Oriented X3, Cooperative, No acute distress HEENT: Atraumatic, PERRLA, EOMI, Mucous membrane moist/pink Respiratory: Vesiculer breath sounds on the right side and decreased breath sounds on the left side, no crackles and wheezing Cardiovascular: Regular rate, Normal S1, Normal S2, No murmurs, no chest wall tenderness Abdominal: Normal bowel sounds, Soft, No tenderness, No hepatospenomegaly, No masses Extremities: No clubbing, No cyanosis, No edema, Normal pulses, No tenderness/swelling Skin: No rashes, No breakdown, No significant lesion Neuro: Normal gait, Normal speech, Strength at 5/5 X4 ext, Normal tone, Sensation intact, grossly intact cranial nerves. Psych/Mental Status: Mental status NL, Mood NL laboratory and microbiology Laboratory Tests 03/26/24 06:17 03/25/24 05:10 Test 03/26/24 06:17 Range/Units Serum Glucose 102 74-106 mg/dL Microbiology Date/Time Source Procedure Growth Status 03/26/24 03:08 Sputum Gram Stain - Final Resulted 03/26/24 03:08 Sputum Respiratory Culture Pending Resulted 03/23/24 15:56 Blood Blood Culture - Preliminary NO GROWTH AFTER 72 HOURS OF INCUBATION. Resulted Labs and/or images reviewed: Labs reviewed by me, Image(s) reviewed by me Problem List/Assessment/Plan Problem List/Assessment/Plan Assessment/Plan # Acute hypoxic respiratory failure, likely due to gram positive/ gram negative pneumonia # Possible SIRS/ Sepsis, secondary to pneumonia # Ruled out Pulmonary embolism # Possible COPD exaccerbation - Chest xray on 03/26/24 showed Cardiomegaly with pulmonary congestion and edema. Superimposed pneumonia cannot be excluded. - BNP is mildly elevated - Chest x-ray shows bilateral lower zone infiltration - Chest CTA showed, airspace disease in the posterior costophrenic angles bilaterally, no pulmonary emboli. - Covid/ Flu negative , and blood c/s revealed no growth in 72 hours of incubation. - Pending sputum c/s and MRSA nares - IV Zosyn 3.375 mg Q8hr and IV doxycycline 100 mg b.i.d. - IV methylprednisolone 40 mg b.i.d - IV Lasix 20 mg once. - Duoneb with albuterol and ipratropium q.4 hours - Incentive spirometry. - Ordered echo # History of hypothyroidism - levothyroxine 75 mcg q.a.m. # Dyslipidemia - atorvastatin 40 mg at HS # Prediabetic, hemoglobin A1c 5.8 - Counseled patient regarding low carb diet, lifestyle modification and physical exercise DIET: Cardiac diet DVT PROPHYLAXIS: Lovenox CODE STATUS: Goal of care discussed for more than 23 minutes, full DISPOSITION: Med/surge Plan discussed with Plan discussed with: Patient, Other My Orders My Orders Orders - KRISTOFER CHAVES RESIDENT Procedure Category Date Status Time Ct Ab Pel Wo Con-No CT 03/26/24 Logged Oral Or Iv 16:25 Date of Service: Mar 26, 2024 Billing Provider: AMY WRIGHT MD Common Visit Codes: [id number] INP/OBS CARE(HIGH) KRISTOFER CHAVES Mar 26, 2024 17:28 AMY WRIGHT MD Mar 27, 2024 09:44
--- NOTE | 2024-03-26 18:23 | DVH ---
Exam: CT CT AB PEL WO CON-NO ORAL OR IV History: AND PAIN Comparison Study: None available TECHNIQUE: Multidetector CT of the abdomen and pelvis was performed from lung bases to pubic symphysi s. Imaging was performed without IV contrast. Axial, coronal, and sagittal multiplanar reformats were obtained from the axial data set by the technologist. RADIATION DOSE: DLP 595.84 mGy.cm; CTDI vol 11.63 mGy. Findings: Lungs: Bibasilar multifocal consolidations with air bronchograms. Heart: No cardiomegaly or pericardial effusion. Liver: Unremarkable. Gallbladder: Unremarkable. Spleen: Unremarkable Pancreas: Unremarkable Adrenals: Unremarkable Kidneys: Bilateral nonobstructive nephrolithiasis. GI tract: Unremarkable : The urinary bladder is decompressed via Quach catheter. Vasculature: Mild aortoiliac atherosclerosis. Lymphadenopathy: Absent Peritoneum: No ascites Musculoskeletal: Mild multilevel degenerative changes of the thoracolumbar spine. T11 intravertebral hemangioma. Soft tissues: Unremarkable Impression: 1. No acute abdominopelvic abnormalities. 2. Bilateral nonobstructive nephrolithiasis. 3. Bibasilar multifocal consolidations with air bronchograms favor an infectious/inflammatory etiolog y.
--- NOTE | 2024-03-26 21:38 | DVHINCON2 ---
Date of service: Mar 26, 2024 Referring Physician Ambar Alcazar MD Reason for Consultation Acute hypoxic respiratory failure, acute respiratory distress syndrome and multifocal pneumonia. History of Present Illness A 59-year-old woman with past medical history of hypothyroidism, hypertension, d yslipidemia and kidney stone who presented to ED on 03/23/24 due to shortness of breath. Per patient, she had fever, chills and body pain 5 days back, went to urgent care and was given doxycycline, zinc and vitamin-D, although her symptoms progressively worsened. Since 2 days prior to presentation, pt developed shortness of breath and chest pain. She was also dx'd with COVID-19 two days prior to presentation. Patient reported cough, chills, fever and generalized body pain. Denied nausea, vomiting, headache, dysuria, or sick contacts. Patient was admitted for further care and pulmonary consultation is requested for evaluation and management due to the above findings. Review of Systems: 14-point review of systems negative unless otherwise noted above. Past Medical History: Hypothyroidism, hypertension, dyslipidemia and kidney stone Past Surgical History: Appendectomy Medications: Reviewed. Amlodipine 10 mg, pravastatin, Lexapro, levothyroxine 75 mcg, aspirin Allergies: No known drug allergies. Family History: No family history of premature CAD. No family history of lung disorders. Social History: Former smoker. No alcohol or illicit drug use. Family History: Hypertension G8 MOTHER, Onset:25's - 30 G8 FATHER, Onset:25s - 30 Thyroid disease G8 BROTHER, Onset:40's - 50 Allergies: Coded Allergies: NO KNOWN ALLERGIES (Unverified , 12/19/11) Home Meds Reported Medications Aspirin (Aspirin Low Dose) 81 Mg Chw, 81 MG PO DAILY, TAB.CHEW 03/24/24 Escitalopram Oxalate (Lexapro) 10 Mg Tab, 10 MG PO DAILY, TAB 03/24/24 Pravastatin Sodium (PRAVACHOL TABLET) 20 Mg Tb, 40 MG PO HS, #30 TAB 5 Refills 10/07/18 Amlodipine Besylate (Amlodipine Besylate) 5 Mg Tab, 5 MG PO BID 10/07/18 Levothyroxine Sodium (Levothyroxine Sodium) 25 Mcg Tab, 75 MCG PO QAM, MCG 12/13/17 Current Medications Current Medications Medications (Trade) Dose Ordered Sig/Saturnino Route PRN Reason Start Time Stop Time Status Last Admin Atorvastatin Calcium (Lipitor) 40 mg HS PO 03/25/24 22:00 03/25/24 21:44 Melatonin (Melatonin) 5 mg HS PO 03/25/24 22:00 03/25/24 21:44 Piperacillin Sod/ Tazobactam Sod 100 ml @ 25 mls/hr Q8HR IV 03/26/24 16:00 03/26/24 15:44 Pantoprazole Sodium (Protonix) 40 mg DAILY IV 03/27/24 10:00 Methylprednisolone Sodium Succinate (Solu Medrol) 40 mg DAILY IV 03/26/24 13:00 03/26/24 10:27 DC Methylprednisolone Sodium Succinate (Solu Medrol) 40 mg BID IV 03/26/24 10:30 03/26/24 11:38 Fluconazole 100 ml @ 100 mls/hr Q1HR IV 03/26/24 12:00 03/26/24 13:59 DC 03/26/24 13:56 Fluconazole (Diflucan Tablet) 200 mg DAILY PO 03/27/24 10:00 Vital Signs Vital Signs Date Time Temp Pulse Resp B/P (MAP) Pulse Ox O2 Delivery O2 Flow Rate FiO2 03/26/24 19:37 80 20 95 45.0 80 03/26/24 19:00 109/74 (86) 03/26/24 18:16 Facial BiPAP Mask 03/26/24 16:00 98.4 98.4 Physical Exam Gen.: Patient lying in bed in no apparent distress. On BiPAP Head: Normocephalic, atraumatic. Eyes: EOMI/PERRLA. Ears: Normal hearing. Normal anatomy. Neck/trachea: Trachea midline, supple. Nose: Normal external anatomy. Mouth: Moist mucous membranes. Chest: Decreased air entry bilaterally. No wheezing or rhonchi. Cardiovascular: Positive S1, positive S2. Regular rate and rhythm. Abdomen: Positive bowel sounds in all 4 quadrants. Soft, non-tender, non- distended. : Deferred. Rectal: Deferred. Skin: Warm, dry. Intact. Extremities: 2+ radial pulses bilaterally. No lower extremity edema. Neuro: Awake, alert, oriented x3. No gross motor or sensory deficits. Cranial nerves II through XII intact. Gait not assessed. Labs/Diagnostic Data Labs Test 03/26/24 11:20 03/26/24 06:17 03/25/24 05:10 03/24/24 16:54 Range/Units Blood Gas Specimen Type Arterial Blood Gas Sample Site Left radial Blood Gas Patient Temperature 37.0 Arterial Blood Date Drawn [id number] Arterial Blood pH 7.514 H 7.350-7.450 Arterial Blood Partial Pressure CO2 31.0 L 32.0-45.0 mmHg Arterial Blood Partial Pressure O2 64.9 L 83.0-108.0 mmHg Arterial Blood HCO3 24.4 21.0-28.0 mmol/L Arterial Blood Oxygen Saturation 92.8 L 94.0-98.0 % Arterial Blood Base Excess 2.1 -2.0-3.0 mmol/L Arterial Blood Oxyhemoglobin 92.4 L 94.0-98.0 % Arterial Blood Carboxyhemoglobin 0.1 L 0.5-1.5 % Arterial Blood Methemoglobin 0.3 0.0-1.5 % Mitch Test Yes Blood Gas Total Hemoglobin 12.20 12.0-16.0 g/dL Blood Gas Liter Flow 50.00 Blood Gas Modality High flow FiO2 % 100.0 Sodium Level 141 136-145 mmol/L Potassium Level 3.6 3.5-5.1 mmol/L Chloride Level 106 98-107 mmol/L Carbon Dioxide Level 28 20-31 mmol/L Anion Gap 7 5-15 Blood Urea Nitrogen 7 L 9-23 mg/dL Creatinine 0.64 0.550-1.02 mg/dL Glomerular Filtration Rate Calc 101 >90 mL/min BUN/Creatinine Ratio 10.9 10.0-20.0 Serum Glucose 102 74-106 mg/dL Calcium Level 9.0 8.7-10.4 mg/dL White Blood Count 5.7 # 4.4-10.8 10^3/uL Red Blood Count 3.77 L 4.0-5.20 10^6/uL Hemoglobin 11.1 L 12.2-16.2 g/dL Hematocrit 33.9 L 36.0-46.0 % Mean Corpuscular Volume 89.9 80.0-100.0 fL Mean Corpuscular Hemoglobin 29.5 28.0-32.0 pg Mean Corpuscular Hemoglobin Concent 32.8 32.0-36.0 g/dL Red Cell Distribution Width 14.8 H 11.8-14.3 % Platelet Count 172 140-450 10^3/uL Mean Platelet Volume 7.1 6.9-10.8 fL Neutrophils (%) (Auto) 85.2 H 37.0-80.0 % Lymphocytes (%) (Auto) 11.2 10.0-50.0 % Monocytes (%) (Auto) 3.6 0.0-12.0 % Eosinophils (%) (Auto) 0.0 0.0-7.0 % Basophils (%) (Auto) 0.0 0.0-2.0 % Neutrophils # (Auto) 4.8 1.6-8.6 10 ^3/uL Lymphocytes # (Auto) 0.6 0.4-5.4 10 ^3/uL Monocytes # (Auto) 0.2 0-1.3 10 ^3/uL Eosinophils # (Auto) 0 0-0.8 10 ^3/uL Basophils # (Auto) 0 0-0.2 10 ^3/uL Nucleated Red Blood Cells 0.2 % Urine Color Light-yellow Yellow Urine Clarity Clear Clear Urine pH 6.5 5.0-9.0 Urine Specific [place] 1.013 1.001-1.035 Urine Protein Trace H Negative Urine Ketones Negative Negative Urine Blood Negative Negative /uL Urine Nitrite Negative Negative Urine Bilirubin Negative Negative Urine Urobilinogen Normal Negative mg/dL Urine Leukocyte Esterase Negative Negative /uL Urine RBC 1 0 - 4 /hpf Urine Microscopic WBC 1 0-5 /HPF Urine Squamous Epithelial Cells Few <5 /hpf Urine Bacteria None seen None Seen /hpf Urine Glucose Normal Normal mg/dL Test 03/24/24 02:35 03/24/24 02:15 03/23/24 20:55 03/23/24 15:50 Range/Units Hemoglobin A1c 5.8 H <5.7 % A1C Lactic Acid Level 0.9 0.4-2.0 mmol/L Magnesium Level 1.9 1.6-2.6 mg/dL Total Bilirubin 0.2 0.2-1.0 mg/dL Aspartate Amino Transferase (AST) 37 13-40 U/L Alanine Aminotransferase (ALT) 18 7-40 U/L Alkaline Phosphatase 90 46-116 U/L Total Protein 6.0 5.7-8.2 g/dL Albumin 3.8 3.2-4.8 g/dL Influenza Type A Antigen Negative Negative Influenza Type B Antigen Negative Negative SARS-CoV-2 Antigen (Rapid) Negative NEGATIVE Urine Test Negative Negative Troponin I High Sensitivity 4 </=34 ng/L Beta HCG, Quantitative 3.8 1.5-4.2 mIU/mL Test 03/23/24 14:39 Range/Units D-Dimer, Quantitative 0.63 H 0.0-0.49 mg/L FEU B-Type Natriuretic Peptide 168.76 0-100 pg/mL Microbiology Date/Time Source Procedure Growth Status 03/26/24 03:08 Sputum Gram Stain - Final Resulted 03/26/24 03:08 Sputum Respiratory Culture Pending Resulted 03/23/24 15:56 Blood Blood Culture - Preliminary NO GROWTH AFTER 72 HOURS OF INCUBATION. Resulted Assessment Impression: Acute hypoxic respiratory failure Acute respiratory distress syndrome Multifocal pneumonia Hx of nicotine dependence Obesity BMI 33.4 Atelectasis Plan: ABG notable for P/F ratio below 100. CTA reviewed, no e/o pulmonary embolism. Multifocal airspace opacities. Patient is on BiPAP with IPAP 10, EPAP 5 Increase IPAP to 12, EPAP to 8 Alternate with high flow oxygen Recommend proning or laying on side. Titrate to keep O2 sats above 92%. Continue bronchodilators. Continue antibiotics - Zosyn IV steroids Pain control Avoid oversedation Diurese to euvolemia w/ Lasix Monitor renal function. Monitor electrolytes. Supplement as necessary. Monitor ins and outs. DVT prophylaxis. Prognosis: Poor given patient's multiple co-morbidities. Rest of plan per hospitalist and other consultants. Thank you, Dr. Alcazar, for allowing me to participate in this patient's care. Further recommendations will depend on the patient's clinical course. Please do not hesitate to contact me if you have any questions or concerns. This medical document was created using an electronic medical record system with app[employer] dictation system. Although these documentations are being carefully reviewed, there may still be some phonetic and typographical changes. The errors are purely typographical, due to imperfection on the software program, and do not reflect any compromise in the patient's medical care. Plan discussed with: Patient, Other (RN/MD Alcazar) DENA DRAPER MD Mar 26, 2024 21:38
[2024-03-27] VITALS (35 sets, daily range): BP systolic 103–128; BP diastolic 48–77; PULSE 55–89; RESP 13–22; TEMP 98.4–98.8; O2SAT 86–98
[2024-03-27 05:41] LABS: Basophils # (auto) 0 10 ^3/uL (0-0.2); Basophils % (auto) 0.3 % (0.0-2.0); Eosinophils # (auto) 0.3 10 ^3/uL (0-0.8); Hematocrit 34.1 % (36.0-46.0); Hemoglobin 11.7 g/dL (12.2-16.2); Lymphocytes % (auto) 9.5 % (10.0-50.0); Mean Corpuscular Hemoglobin 32.6 pg (28.0-32.0); Mean Corpuscular Hgb Conc. 34.2 g/dL (32.0-36.0); Mean Corpuscular Volume 95.3 fL (80.0-100.0); Monocytes # (auto) 0.9 10 ^3/uL (0-1.3); Monocytes % (auto) 8.4 % (0.0-12.0); Neutrophils # (auto) 8.4 10 ^3/uL (1.6-8.6); Neutrophils % (auto) 78.8 % (37.0-80.0); Platelet Count (auto) 250 10^3/uL (140-450); Red Blood Cells 3.58 10^6/uL (4.0-5.20); Red Cell Distribution Width 12.6 % (11.8-14.3); White Blood Cell 10.7 10^3/uL (4.4-10.8)
[2024-03-27 05:52] LABS: Chloride 102 mmol/L (98-107); Potassium 3.7 mmol/L (3.5-5.1); Sodium 140 mmol/L (136-145)
[2024-03-27 05:53] LABS: Anion Gap 6 (5-15)
[2024-03-27 05:54] LABS: Calcium 9.1 mg/dL (8.7-10.4)
[2024-03-27 05:58] LABS: BUN/Creatinine Ratio 19.7 (10.0-20.0); Blood Urea Nitrogen 14 mg/dL (9-23)
[2024-03-27 06:01] LABS: Carbon Dioxide 32 mmol/L (20-31); Glucose 136 mg/dL (74-106)
[2024-03-27] MEDS: PANTOPRAZOLE 40 MG/10 ML VIAL INJ IV SCH (10:01)
[2024-03-27] MEDS: FLUCONAZOLE 100 MG TAB PO SCH (10:02)
--- NOTE | 2024-03-27 12:13 | DVH ---
EXAM: XY CHEST XRAY 1 VIEW Indication: Hypoxia Technique: Single frontal view of the chest was obtained Comparison: XY CHEST XRAY 1 VIEW on DOS: 03/26/24 FINDINGS: Lines and Tubes: None Lungs: Multifocal consolidative opacities Pleura: No effusion. No pneumothorax. Cardiomediastinal contours: Unchanged. Bones: No acute osseous abnormality. IMPRESSION: Multifocal consolidative opacities, unchanged compared to prior exam.
--- NOTE | 2024-03-27 17:03 | DVHPNRES ---
Progress Note Date Seen: Mar 27, 2024 Resident Creating Document: KRISTOFER CHAVES RESIDENT Has the PT tested + for MRSA If YES, has PT been informed?: No Medical Necessity Reason Pt with a Central, PICC or Fol: No Subjective Review of Systems This is a 59-year-old female past medical history of hypothyroidism, hypertension, dyslipidemia and kidney stone came to the hospital With a chief complaint of shortness of breath for 2 days prior to this admission. the patient stated that she has she had fever, flu-like symptoms 5 days ago went to the urgent care and advised her to take doxycycline drink and vitamin-D but her symptoms progressively getting worse that prompted this visit. She also mentioned for last 2 days shortness of breath getting worse and was not able to go to washroom felt gasping of air, saturation was 84% associated with cough and greenish to brownish sputum. Patient was admitted for further assessment and management. Patient was seen and examined on the bedside. she is alert oriented x3 and mentioned feeling better than yesterday. Patient is on high-flow oxygen nasal cannula with FiO2 50 and BiPAP nighttime with the setting of . Objective vital signs Vital Sign Date Time Temp Pulse Resp B/P (MAP) Pulse Ox O2 Delivery O2 Flow Rate FiO2 03/27/24 16:45 89 17 127/69 (88) 93 03/27/24 16:00 98.8 98.8 03/27/24 14:25 50.0 60 03/27/24 10:00 Hi-Flow Heated NC+ Total Intake and Output 03/26/24 03/26/24 03/27/24 15:00 23:00 07:00 Intake Total 200 ml 1450 ml 1200 ml Output Total 3150 ml 890 ml Balance 200 ml -1700 ml 310 ml medications Current Medications Medications Dose Ordered Sig/Saturnino Route Start Time Stop Time Status Last Admin Dose Admin Nitroglycerin 0.4 mg Q5MINP PRN SL 03/23/24 22:45 Acetaminophen 650 mg Q4HP PRN PO 03/24/24 00:00 03/26/24 01:55 650 MG Enoxaparin Sodium 40 mg DAILY SC 03/25/24 10:00 03/27/24 10:02 40 MG Doxycycline Hyclate 100 ml @ 50 mls/hr Q12H IV 03/24/24 01:00 03/27/24 13:18 50 MLS/HR Ipratropium [place] 0.5 mg Q4HWA NEB 03/24/24 06:00 03/27/24 14:25 0.5 MG Albuterol 2.5 mg Q4HWA NEB 03/24/24 06:00 03/27/24 14:25 2.5 MG Levothyroxine Sodium 75 mcg QAM@0600 PO 03/24/24 06:00 03/27/24 05:31 75 MCG Atorvastatin Calcium 40 mg HS PO 03/25/24 22:00 03/26/24 21:48 40 MG Acetaminophen/ Hydrocodone Bitart 1 tab Q6HPRN PRN PO 03/24/24 16:45 03/26/24 21:49 1 TAB Melatonin 5 mg HS PO 03/25/24 22:00 03/26/24 21:48 5 MG Piperacillin Sod/ Tazobactam Sod 100 ml @ 25 mls/hr Q8HR IV 03/26/24 16:00 03/27/24 16:04 25 MLS/HR Pantoprazole Sodium 40 mg DAILY IV 03/27/24 10:00 03/27/24 10:01 40 MG Methylprednisolone Sodium Succinate 40 mg BID IV 03/26/24 10:30 03/27/24 10:01 40 MG Fluconazole 200 mg DAILY PO 03/27/24 10:00 03/27/24 10:02 200 MG Examination Physical examination: General Appearance: Alert, Oriented X3, Cooperative, No acute distress HEENT: Atraumatic, PERRLA, EOMI, Mucous membrane moist/pink Respiratory: Vesiculer breath sounds on the right side and decreased breath sounds on the left side, no crackles and wheezing Cardiovascular: Regular rate, Normal S1, Normal S2, No murmurs, no chest wall tenderness Abdominal: Normal bowel sounds, Soft, No tenderness, No hepatospenomegaly, No masses Extremities: No clubbing, No cyanosis, No edema, Normal pulses, No tenderness/swelling Skin: No rashes, No breakdown, No significant lesion Neuro: Normal gait, Normal speech, Strength at 5/5 X4 ext, Normal tone, Sensation intact, grossly intact cranial nerves. Psych/Mental Status: Mental status NL, Mood NL laboratory and microbiology Laboratory Tests 03/27/24 05:26 Test 03/27/24 05:26 Range/Units Serum Glucose 136 H 74-106 mg/dL Microbiology Date/Time Source Procedure Growth Status 03/26/24 09:29 Nose MRSA Screen - Final Complete 03/26/24 03:08 Sputum Gram Stain - Final Resulted 03/26/24 03:08 Sputum Respiratory Culture - Preliminary Resulted 03/23/24 15:56 Blood Blood Culture - Preliminary NO GROWTH AFTER 72 HOURS OF INCUBATION. Resulted Labs and/or images reviewed: Labs reviewed by me, Image(s) reviewed by me Problem List/Assessment/Plan Problem List/Assessment/Plan Assessment/Plan # Acute hypoxic respiratory failure, likely due to gram positive/ gram negative pneumonia # Possible multifocal pneumonia # Possible Acute respiratory distress syndrme # Possible SIRS/ Sepsis, secondary to pneumonia # Ruled out Pulmonary embolism # Possible COPD exaccerbation - Chest xray on 03/26/24 showed Cardiomegaly with pulmonary congestion and edema. Superimposed pneumonia cannot be excluded. - BNP is mildly elevated - Chest x-ray shows bilateral lower zone infiltration - Chest CTA showed, airspace disease in the posterior costophrenic angles bilaterally, no pulmonary emboli. - Covid/ Flu negative , and blood c/s revealed no growth in 72 hours of incubation. - Pending sputum c/s and MRSA nares - IV Zosyn 3.375 mg Q8hr and IV doxycycline 100 mg b.i.d. - IV methylprednisolone 40 mg b.i.d - IV Lasix 40 mg once. - Duoneb with albuterol and ipratropium q.4 hours - Incentive spirometry. - Pending echo # History of hypothyroidism - levothyroxine 75 mcg q.a.m. # Dyslipidemia - atorvastatin 40 mg at HS # Prediabetic, hemoglobin A1c 5.8 - Counseled patient regarding low carb diet, lifestyle modification and physical exercise DIET: Cardiac diet DVT PROPHYLAXIS: Lovenox CODE STATUS: Goal of care discussed for more than 23 minutes, full DISPOSITION: Med/surge Plan discussed with Plan discussed with: Patient, Other My Orders My Orders Orders - KRISTOFER CHAVES Procedure Category Date Status Time Chest Xray 1 View XY 03/27/24 Resulted 11:32 Date of Service: Mar 27, 2024 Billing Provider: AMY WRIGHT MD Common Visit Codes: [id number] INP/OBS CARE(HIGH) KRISTOFER CHAVES Mar 27, 2024 17:03 AMY WRIGHT MD Apr 03, 2024 23:45
[2024-03-27] MEDS: FUROSEMIDE 40 MG/4 ML VIAL IV ONE (17:15)
[2024-03-28] VITALS (34 sets, daily range): BP systolic 107–127; BP diastolic 55–75; PULSE 55–85; RESP 14–24; TEMP 98.1–98.6; O2SAT 89–98
[2024-03-28 05:12] LABS: Basophils # (auto) 0 10 ^3/uL (0-0.2); Eosinophils # (auto) 0 10 ^3/uL (0-0.8); Hematocrit 35.9 % (36.0-46.0); Hemoglobin 12.2 g/dL (12.2-16.2); Lymphocytes # (auto) 0.5 10 ^3/uL (0.4-5.4); Lymphocytes % (auto) 6.2 % (10.0-50.0); Mean Corpuscular Hemoglobin 30.5 pg (28.0-32.0); Mean Corpuscular Volume 89.8 fL (80.0-100.0); Monocytes # (auto) 0.6 10 ^3/uL (0-1.3); Monocytes % (auto) 7.6 % (0.0-12.0); Neutrophils # (auto) 6.4 10 ^3/uL (1.6-8.6); Neutrophils % (auto) 86.2 % (37.0-80.0); Nucleated Red Blood Cells % 0.1 %; Platelet Count (auto) 347 10^3/uL (140-450); Red Blood Cells 3.99 10^6/uL (4.0-5.20); Red Cell Distribution Width 14.4 % (11.8-14.3); White Blood Cell 7.5 10^3/uL (4.4-10.8)
[2024-03-28 05:15] LABS: Potassium 3.5 mmol/L (3.5-5.1); Sodium 139 mmol/L (136-145)
[2024-03-28 05:16] LABS: Anion Gap 8 (5-15)
[2024-03-28 05:17] LABS: Calcium 9.3 mg/dL (8.7-10.4)
[2024-03-28 05:21] LABS: BUN/Creatinine Ratio 20.5 (10.0-20.0); Blood Urea Nitrogen 18 mg/dL (9-23)
[2024-03-28 05:22] LABS: Carbon Dioxide 33 mmol/L (20-31); Chloride 98 mmol/L (98-107); Glucose 158 mg/dL (74-106)
--- NOTE | 2024-03-28 11:54 | DVH ---
CHEST RADIOGRAPH Indication: hypoxia Technique: Single frontal view of the chest was obtained COMPARISON: XY CHEST XRAY 1 VIEW on DOS: 03/27/24, XY CHEST XRAY 1 VIEW on DOS: 03/26/24, CT scan of e chest dated 03/23/2024. FINDINGS: Peripheral interstitial infiltrates are re-identified in both lungs, stable to slightly improved comp ared with previous chest imaging. No pneumothorax. The heart is borderline enlarged. IMPRESSION: Stable to slightly improved bilateral pulmonary peripheral infiltrates.
[2024-03-28] MEDS: FLUCONAZOLE 200MG/100ML 100 ML IV SCH (13:00)
--- NOTE | 2024-03-28 15:39 | DVHSR ---
APPROVED REPORT EXAM: Two-dimensional and M-mode echocardiogram with Doppler and color Doppler. Blood Pressure: 108/64 mmHg INDICATION Hypoxia RISK FACTORS Height: 62, Weight: 182 DIMENSIONS LVDd4.9 (3.8-5.7cm)LA (2D)4.3 (1.9-4.0cm)Aortic Root3.1 (2.0-3.7cm) LVDs3.5 (2.5-4.0cm)LA (MM) (1.9-4.0cm)Aortic Cusp Exc1.8 (1.5-2.0cm) EF (%) 55.0 (55-70%)Rt. Atrium4.2 (1.9-4.0cm)Asc. Aorta cm IVSd0.9 (0.7-1.1cm)RV (D) (1.8-2.4cm) PWd1.2 (0.7-1.1cm) Mitral Valve MitralMitral Stenosis E wave0.76m/sMV Mean GR.mmHg A wave0.71m/sMV Peak GR.52mmHg E/A ratio1.12D MVAcm2 DECEL [id number] 1/2 [id number] IVRTmsDop MVA2.55cm2 Aortic Valve Aortic ValveAortic Stenosis V11.26m/Santy Mean GR.4mmHg V21.53m/Santy Peak GR.9mmHg LVOT Diameter2.0 (1.8-2.4cm)Doppler AVA2.59cm2 Pulmonic Valve V20.91m/s Conclusion Sinus rhythm. Biatrial enlargement with concentric LVH. Valves are normal. EF of 55% with normal RV function. Dopplers unremarkable. No pericardial effusion masses or vegetations.
--- NOTE | 2024-03-28 18:57 | DVHPNRES ---
Progress Note Date Seen: Mar 28, 2024 Resident Creating Document: KRISTOFER CHAVES RESIDENT Has the PT tested + for MRSA If YES, has PT been informed?: No Medical Necessity Reason Pt with a Central, PICC or Fol: No Subjective Review of Systems This is a 59-year-old female past medical history of hypothyroidism, hypertension, dyslipidemia and kidney stone came to the hospital With a chief complaint of shortness of breath for 2 days prior to this admission. the patient stated that she has she had fever, flu-like symptoms 5 days ago went to the urgent care and advised her to take doxycycline drink and vitamin-D but her symptoms progressively getting worse that prompted this visit. She also mentioned for last 2 days shortness of breath getting worse and was not able to go to washroom felt gasping of air, saturation was 84% associated with cough and greenish to brownish sputum. Patient was admitted for further assessment and management. Patient was seen and examined on the bedside. she is alert oriented x3 and mentioned feeling better than yesterday. Patient is on high-flow oxygen nasal cannula with FiO2 70 and BiPAP nighttime with the setting of . Objective vital signs Vital Sign Date Time Temp Pulse Resp B/P (MAP) Pulse Ox O2 Delivery O2 Flow Rate FiO2 03/28/24 18:42 69 20 93 50.0 70 03/28/24 18:00 03/28/24 16:00 Hi-Flow Heated NC+ 03/28/24 16:00 98.2 98.2 Total Intake and Output 03/27/24 03/27/24 03/28/24 15:00 23:00 07:00 Intake Total 1785 ml 685 ml Output Total 550 ml 900 ml Balance 1235 ml -215 ml medications Current Medications Medications Dose Ordered Sig/Saturn[place] Route Start Time Stop Time Status Last Admin Dose Admin Nitroglycerin 0.4 mg Q5MINP PRN SL 03/23/24 22:45 Acetaminophen 650 mg Q4HP PRN PO 03/24/24 00:00 03/26/24 01:55 650 MG Enoxaparin Sodium 40 mg DAILY SC 03/25/24 10:00 03/28/24 09:56 40 MG Doxycycline Hyclate 100 ml @ 50 mls/hr Q12H IV 03/24/24 01:00 03/28/24 12:29 50 MLS/HR Ipratropium [place] 0.5 mg Q4HWA NEB 03/24/24 06:00 03/28/24 18:42 0.5 MG Albuterol 2.5 mg Q4HWA NEB 03/24/24 06:00 03/28/24 18:42 2.5 MG Levothyroxine Sodium 75 mcg QAM@0600 PO 03/24/24 06:00 03/28/24 05:42 75 MCG Atorvastatin Calcium 40 mg HS PO 03/25/24 22:00 03/27/24 22:00 40 MG Acetaminophen/ Hydrocodone Bitart 1 tab Q6HPRN PRN PO 03/24/24 16:45 03/27/24 18:33 1 TAB Melatonin 5 mg HS PO 03/25/24 22:00 03/27/24 22:00 5 MG Piperacillin Sod/ Tazobactam Sod 100 ml @ 25 mls/hr Q8HR IV 03/26/24 16:00 03/28/24 14:32 25 MLS/HR Pantoprazole Sodium 40 mg DAILY IV 03/27/24 10:00 03/28/24 09:56 40 MG Methylprednisolone Sodium Succinate 40 mg BID IV 03/26/24 10:30 03/28/24 09:56 40 MG Fluconazole 100 ml @ 100 mls/hr 10,11 IV 03/29/24 10:00 Examination Physical examination: General Appearance: Alert, Oriented X3, Cooperative, No acute distress HEENT: Atraumatic, PERRLA, EOMI, Mucous membrane moist/pink Respiratory: Vesiculer breath sounds on the right side and decreased breath sounds on the left side, no crackles and wheezing Cardiovascular: Regular rate, Normal S1, Normal S2, No murmurs, no chest wall tenderness Abdominal: Normal bowel sounds, Soft, No tenderness, No hepatospenomegaly, No masses Extremities: No clubbing, No cyanosis, No edema, Normal pulses, No tenderness/swelling Skin: No rashes, No breakdown, No significant lesion Neuro: Normal gait, Normal speech, Strength at 5/5 X4 ext, Normal tone, Sensation intact, grossly intact cranial nerves. Psych/Mental Status: Mental status NL, Mood NL laboratory and microbiology Laboratory Tests 03/28/24 04:41 Test 03/28/24 04:41 Range/Units Serum Glucose 158 H 74-106 mg/dL Microbiology Date/Time Source Procedure Growth Status 03/26/24 09:29 Nose MRSA Screen - Final Complete 03/26/24 03:08 Sputum Gram Stain - Final Resulted 03/26/24 03:08 Sputum Respiratory Culture - Preliminary Resulted 03/23/24 15:56 Blood Blood Culture - Final NO GROWTH AFTER 5 DAYS OF INCUBATION. Complete Labs and/or images reviewed: Labs reviewed by me, Image(s) reviewed by me Problem List/Assessment/Plan Problem List/Assessment/Plan Assessment/Plan # Acute hypoxic respiratory failure, likely due to gram positive/ gram negative pneumonia # Possible multifocal pneumonia # Possible Acute respiratory distress syndrme # Possible SIRS/ Sepsis, secondary to pneumonia # Ruled out Pulmonary embolism # Possible COPD exaccerbation - Chest xray on 03/26/24 showed Cardiomegaly with pulmonary congestion and edema. Superimposed pneumonia cannot be excluded. - BNP is mildly elevated - Chest x-ray shows bilateral lower zone infiltration - Chest CTA showed, airspace disease in the posterior costophrenic angles bilaterally, no pulmonary emboli. - Covid/ Flu negative , and blood c/s revealed no growth in 72 hours of incubation. - Pending sputum c/s and MRSA nares - IV Zosyn 3.375 mg Q8hr and IV doxycycline 100 mg b.i.d. and IV fluconazole 400 mg daily - IV methylprednisolone 40 mg b.i.d - IV Lasix 40 mg once. - Duoneb with albuterol and ipratropium q.4 hours - Incentive spirometry. - Echo revealed EF 55% with normal RV function. # History of hypothyroidism - levothyroxine 75 mcg q.a.m. # Dyslipidemia - atorvastatin 40 mg at HS # Prediabetic, hemoglobin A1c 5.8 - Counseled patient regarding low carb diet, lifestyle modification and physical exercise DIET: Cardiac diet DVT PROPHYLAXIS: Lovenox CODE STATUS: Goal of care discussed for more than 23 minutes, full DISPOSITION: Med/surge Plan discussed with Plan discussed with: Patient, Other My Orders My Orders Orders - KRISTOFER CHAVES RESIDENT Procedure Category Date Status Time Chest Portable XY 03/28/24 Resulted 11:26 Covid19 Antigen [facility] LAB 03/28/24 Logged Transfer Orders XFER 03/28/24 Transmitted 13:35 Fluconazole PHA 03/29/24 In Process 200mg/100ml (Diflucan 10:00 Respiratory Syncytial LAB 03/28/24 Logged Virus Ag 16:18 Date of Service: Mar 28, 2024 Billing Provider: AMY WRIGHT MD Common Visit Codes: [id number] CARE-EACH +30MIN KRISTOFER CHAVES RESIDENT Mar 28, 2024 18:57 AMY WRIGHT MD Apr 03, 2024 23:49
[2024-03-29] VITALS (75 sets, daily range): BP systolic 108–159; BP diastolic 55–83; PULSE 52–89; RESP 11–24; TEMP 97.8–98.6; O2SAT 86–98
[2024-03-29 06:33] LABS: Basophils # (auto) 0 10 ^3/uL (0-0.2); Eosinophils # (auto) 0 10 ^3/uL (0-0.8); Hematocrit 36.1 % (36.0-46.0); Lymphocytes # (auto) 0.5 10 ^3/uL (0.4-5.4); Lymphocytes % (auto) 5.2 % (10.0-50.0); Mean Corpuscular Hemoglobin 29.9 pg (28.0-32.0); Mean Corpuscular Hgb Conc. 33.2 g/dL (32.0-36.0); Monocytes # (auto) 0.5 10 ^3/uL (0-1.3); Monocytes % (auto) 5.7 % (0.0-12.0); Neutrophils # (auto) 8.1 10 ^3/uL (1.6-8.6); Neutrophils % (auto) 89.1 % (37.0-80.0); Platelet Count (auto) 387 10^3/uL (140-450); Red Blood Cells 4.01 10^6/uL (4.0-5.20); Red Cell Distribution Width 14.3 % (11.8-14.3); White Blood Cell 9.1 10^3/uL (4.4-10.8)
[2024-03-29 06:57] LABS: Alanine Aminotransferase 28 U/L (7-40); Albumin 3.7 g/dL (3.2-4.8); Alkaline Phosphatase 58 U/L (46-116); Anion Gap 8 (5-15); Aspartate Aminotransferase 33 U/L (13-40); BUN/Creatinine Ratio 26.4 (10.0-20.0); Blood Urea Nitrogen 19 mg/dL (9-23); Calcium 9.2 mg/dL (8.7-10.4); Chloride 100 mmol/L (98-107); Potassium 3.9 mmol/L (3.5-5.1); Sodium 140 mmol/L (136-145)
[2024-03-29 06:58] LABS: Bilirubin, Total 0.4 mg/dL (0.2-1.0); Carbon Dioxide 32 mmol/L (20-31); Glucose 150 mg/dL (74-106)
[2024-03-29] MEDS: FLUCONAZOLE 200MG/100ML 100 ML IV SCH (09:34)
[2024-03-29 10:09] LABS: Base Excess 3.1 mmol/L (-2.0-3.0)
[2024-03-29 14:44] LABS: COVID19 ANTIGEN SOFIA FIA NEGATIVE (NEGATIVE)
--- NOTE | 2024-03-29 14:59 | DVHPNRES ---
Progress Note Date Seen: Mar 29, 2024 Resident Creating Document: KRISTOFER CHAVES RESIDENT Has the PT tested + for MRSA If YES, has PT been informed?: No Medical Necessity Reason Pt with a Central, PICC or Fol: No Subjective Review of Systems This is a 59-year-old female past medical history of hypothyroidism, hypertension, dyslipidemia and kidney stone came to the hospital With a chief complaint of shortness of breath for 2 days prior to this admission. the patient stated that she has she had fever, flu-like symptoms 5 days ago went to the urgent care and advised her to take doxycycline drink and vitamin-D but her symptoms progressively getting worse that prompted this visit. She also mentioned for last 2 days shortness of breath getting worse and was not able to go to washroom felt gasping of air, saturation was 84% associated with cough and greenish to brownish sputum. Patient was admitted for further assessment and management. Patient was seen and examined on the bedside. she is alert oriented x3 and mentioned feeling better than yesterday. Patient is on high-flow oxygen nasal cannula with FiO2 60 and BiPAP nighttime with the setting of . Pulmonology was also in board and recommended prone position at least 7 to 8 hours a day for proper ventilation on the bases of both lungs. Objective vital signs Vital Sign Date Time Temp Pulse Resp B/P (MAP) Pulse Ox O2 Delivery O2 Flow Rate FiO2 03/29/24 12:00 64 03/29/24 12:00 16 93 Hi-Flow Heated NC+ 50 60 60 03/29/24 08:00 98.3 124/73 (90) 98.3 Total Intake and Output 03/28/24 03/28/24 03/29/24 15:00 23:00 07:00 Intake Total 200 ml 500 ml 525 ml Output Total 750 ml 375 ml Balance 200 ml -250 ml 150 ml medications Current Medications Medications Dose Ordered Sig/Saturnino Route Start Time Stop Time Status Last Admin Dose Admin Nitroglycerin 0.4 mg Q5MINP PRN SL 03/23/24 22:45 Acetaminophen 650 mg Q4HP PRN PO 03/24/24 00:00 03/26/24 01:55 650 MG Enoxaparin Sodium 40 mg DAILY SC 03/25/24 10:00 03/29/24 09:36 40 MG Doxycycline Hyclate 100 ml @ 50 mls/hr Q12H IV 03/24/24 01:00 03/29/24 14:05 50 MLS/HR Ipratropium [place] 0.5 mg Q4HWA NEB 03/24/24 06:00 03/29/24 10:42 0.5 MG Albuterol 2.5 mg Q4HWA NEB 03/24/24 06:00 03/29/24 10:42 2.5 MG Levothyroxine Sodium 75 mcg QAM@0600 PO 03/24/24 06:00 03/29/24 06:03 75 MCG Atorvastatin Calcium 40 mg HS PO 03/25/24 22:00 03/28/24 21:52 40 MG Acetaminophen/ Hydrocodone Bitart 1 tab Q6HPRN PRN PO 03/24/24 16:45 03/28/24 20:47 1 TAB Melatonin 5 mg HS PO 03/25/24 22:00 03/28/24 21:51 5 MG Piperacillin Sod/ Tazobactam Sod 100 ml @ 25 mls/hr Q8HR IV 03/26/24 16:00 03/29/24 14:10 25 MLS/HR Pantoprazole Sodium 40 mg DAILY IV 03/27/24 10:00 03/29/24 09:34 40 MG Methylprednisolone Sodium Succinate 40 mg BID IV 03/26/24 10:30 03/29/24 09:35 40 MG Fluconazole 100 ml @ 100 mls/hr 10,11 IV 03/29/24 10:00 03/29/24 11:00 100 MLS/HR Examination Physical examination: General Appearance: Alert, Oriented X3, Cooperative, No acute distress HEENT: Atraumatic, PERRLA, EOMI, Mucous membrane moist/pink Respiratory: Vesiculer breath sounds on the right side and decreased breath sounds on the left side, no crackles and wheezing Cardiovascular: Regular rate, Normal S1, Normal S2, No murmurs, no chest wall tenderness Abdominal: Normal bowel sounds, Soft, No tenderness, No hepatospenomegaly, No masses Extremities: No clubbing, No cyanosis, No edema, Normal pulses, No tenderness/swelling Skin: No rashes, No breakdown, No significant lesion Neuro: Normal gait, Normal speech, Strength at 5/5 X4 ext, Normal tone, Sensation intact, grossly intact cranial nerves. Psych/Mental Status: Mental status NL, Mood NL laboratory and microbiology Laboratory Tests 03/29/24 06:18 Test 03/29/24 06:18 Range/Units Serum Glucose 150 H 74-106 mg/dL Microbiology Date/Time Source Procedure Growth Status 03/26/24 09:29 Nose MRSA Screen - Final Complete 03/26/24 03:08 Sputum Gram Stain - Final Complete 03/26/24 03:08 Sputum Respiratory Culture - Final Complete 03/23/24 15:56 Blood Blood Culture - Final NO GROWTH AFTER 5 DAYS OF INCUBATION. Complete Labs and/or images reviewed: Labs reviewed by me, Image(s) reviewed by me Problem List/Assessment/Plan Problem List/Assessment/Plan Assessment/Plan # Acute hypoxic respiratory failure, likely due to gram positive/ gram negative pneumonia # Possible multifocal pneumonia # Possible Acute respiratory distress syndrme # Possible SIRS/ Sepsis, secondary to pneumonia # Ruled out Pulmonary embolism # Possible COPD exaccerbation - Chest xray on 03/26/24 showed Cardiomegaly with pulmonary congestion and edema. Superimposed pneumonia cannot be excluded. - BNP is mildly elevated - Chest x-ray shows bilateral lower zone infiltration - Chest CTA showed, airspace disease in the posterior costophrenic angles bilaterally, no pulmonary emboli. - Covid/ Flu negative , and blood c/s revealed no growth in 72 hours of incubation. - Pending sputum c/s and MRSA nares - IV Zosyn 3.375 mg Q8hr and IV doxycycline 100 mg b.i.d. and IV fluconazole 400 mg daily - IV methylprednisolone 40 mg b.i.d - IV Lasix 40 mg once. - Duoneb with albuterol and ipratropium q.4 hours - Incentive spirometry. - Echo revealed EF 55% with normal RV function. # History of hypothyroidism - levothyroxine 75 mcg q.a.m. # Dyslipidemia - atorvastatin 40 mg at HS # Prediabetic, hemoglobin A1c 5.8 - Counseled patient regarding low carb diet, lifestyle modification and physical exercise DIET: Cardiac diet DVT PROPHYLAXIS: Lovenox CODE STATUS: Goal of care discussed for more than 23 minutes, full DISPOSITION: Med/surge Plan discussed with Plan discussed with: Patient, Other My Orders My Orders Orders - KRISTOFER CHAVES RESIDENT Procedure Category Date Status Time Respiratory Syncytial LAB 03/28/24 Logged Virus Ag 16:18 Abg W/ Co-Ox RT 03/29/24 Logged 10:11 Date of Service: Mar 29, 2024 Billing Provider: AMY WRIGHT MD Common Visit Codes: [id number] INP/OBS CARE(HIGH) KRISTOFER CHAVES RESIDENT Mar 29, 2024 14:59 AMY WRIGHT MD Apr 03, 2024 23:56
[2024-03-29 19:48] LABS: Hematocrit 36.4 % (36.0-46.0); Hemoglobin 12.1 g/dL (12.2-16.2); Mean Corpuscular Hemoglobin 29.9 pg (28.0-32.0); Mean Corpuscular Hgb Conc. 33.2 g/dL (32.0-36.0); Mean Corpuscular Volume 90.1 fL (80.0-100.0); Platelet Count (auto) 429 10^3/uL (140-450); Red Blood Cells 4.04 10^6/uL (4.0-5.20); White Blood Cell 10.6 10^3/uL (4.4-10.8)
[2024-03-29 19:51] LABS: Band Neutrophils % (manual) 0; Basophils % (manual) 0 (0.0-2.0); Blast Cells 0; Eosinophils % (manual) 0 (0-7); Metamyelocytes % 0; Myelocytes % 0; Promyelocytes % 0; Reactive Lymphocytes 0
[2024-03-29 20:35] LABS: Lymphocytes % (manual) 3 (10.0-50.0); Monocytes % (manual) 4 (0-12); Platelet Estimate Adequate; Stomatocytes Few
[2024-03-29] MEDS: IBUPROFEN 600 MG TAB PO SCH (21:23)
--- NOTE | 2024-03-29 23:12 | DVHPN2 ---
Progress Note - Dictate Date Seen: Mar 29, 2024 Has the PT tested + for MRSA If YES, has PT been informed?: No Medical Necessity Reason Pt with a Central, PICC or Fol: Yes The following are medically ne: Carreno Catheter Reason for carreno catheter: Strict I&O Subjective Patient seen and examined at bedside. Currently on supplemental oxygen Overnight events reviewed. vital signs Vital Sign Date Time Temp Pulse Resp B/P (MAP) Pulse Ox O2 Delivery O2 Flow Rate FiO2 03/29/24 22:18 69 19 94 50.0 60 03/29/24 21:23 98.4 03/29/24 18:30 03/29/24 16:00 Hi-Flow Heated NC+ Total Intake and Output 03/28/24 03/28/24 03/29/24 15:00 23:00 07:00 Intake Total 200 ml 500 ml 525 ml Output Total 750 ml 375 ml Balance 200 ml -250 ml 150 ml medications Current Medications Medications Dose Ordered Sig/[place] Route Start Time Stop Time Status Last Admin Dose Admin Nitroglycerin 0.4 mg Q5MINP PRN SL 03/23/24 22:45 Acetaminophen 650 mg Q4HP PRN PO 03/24/24 00:00 03/26/24 01:55 650 MG Enoxaparin Sodium 40 mg DAILY SC 03/25/24 10:00 03/29/24 09:36 40 MG Doxycycline Hyclate 100 ml @ 50 mls/hr Q12H IV 03/24/24 01:00 03/29/24 14:05 50 MLS/HR Ipratropium [place] 0.5 mg Q4HWA [facility] 03/24/24 06:00 03/29/24 22:18 0.5 MG Albuterol 2.5 mg Q4HWA [facility] 03/24/24 06:00 03/29/24 22:18 2.5 MG Levothyroxine Sodium 75 mcg QAM@0600 PO 03/24/24 06:00 03/29/24 06:03 75 MCG Atorvastatin Calcium 40 mg HS PO 03/25/24 22:00 03/29/24 21:23 40 MG Acetaminophen/ Hydrocodone Bitart 1 tab Q6HPRN PRN PO 03/24/24 16:45 03/29/24 18:47 1 TAB Melatonin 5 mg HS PO 03/25/24 22:00 03/29/24 21:23 5 MG Piperacillin Sod/ Tazobactam Sod 100 ml @ 25 mls/hr Q8HR IV 03/26/24 16:00 03/29/24 21:24 25 MLS/HR Pantoprazole Sodium 40 mg DAILY IV 03/27/24 10:00 03/29/24 09:34 40 MG Methylprednisolone Sodium Succinate 40 mg BID IV 03/26/24 10:30 03/29/24 21:22 40 MG Fluconazole 100 ml @ 100 mls/hr 10,11 IV 03/29/24 10:00 03/29/24 11:00 100 MLS/HR Patient Own Medication 1 DAILY PO 03/30/24 10:00 UNV Patient Own Medication 1 DAILY PO 03/29/24 17:00 03/29/24 17:00 1 Ibuprofen 600 mg BID PO 03/29/24 22:00 04/01/24 23:00 03/29/24 21:23 600 MG objective Gen.: Patient lying in bed in no apparent distress. On supplemental oxygen. Head: Normocephalic, atraumatic. Eyes: EOMI/PERRLA. Ears: Normal hearing. Normal anatomy. Neck/trachea: Trachea midline, supple. Nose: Normal external anatomy. Mouth: Moist mucous membranes. Chest: Decreased air entry bilaterally. No wheezing or rhonchi. Cardiovascular: Positive S1, positive S2. Regular rate and rhythm. Abdomen: Positive bowel sounds in all 4 quadrants. Soft, non-tender, non- distended. : Deferred. Rectal: Deferred. Skin: Warm, dry. Intact. Extremities: 2+ radial pulses bilaterally. No lower extremity edema. Neuro: Awake, alert, oriented x3. No gross motor or sensory deficits. Cranial nerves II through XII intact. Gait not assessed. laboratory and microbiology Laboratory Tests 03/29/24 19:33 03/29/24 06:18 Test 03/29/24 06:18 Range/Units Serum Glucose 150 H 74-106 mg/dL Assessment/Plan Impression: Acute hypoxic respiratory failure Acute respiratory distress syndrome Multifocal pneumonia Hx of nicotine dependence Obesity BMI 33.4 Atelectasis Events: Currently on supplemental oxygen High flow O2 with flow rate 50 LPM, FiO2 60% Taper FiO2 as tolerated Prone as tolerated. Continue IV steroids Continue antibiotics Continue antifungal Incentive spirometry Diurese as tolerated w/ Lasix Monitor renal function. Monitor electrolytes. Supplement as necessary. Labs and imaging reviewed. Rest of plan as noted below. Plan: ABG notable for P/F ratio below 100. CTA reviewed, no e/o pulmonary embolism. Multifocal airspace opacities. On BiPAP alternating with high flow oxygen Recommend proning or laying on side. Titrate to keep O2 sats above 92%. Continue bronchodilators. Continue antibiotics - Zosyn IV steroids Pain control Avoid oversedation Diurese to euvolemia w/ Lasix Monitor renal function. Monitor electrolytes. Supplement as necessary. Monitor ins and outs. DVT prophylaxis. Prognosis: Poor given patient's multiple co-morbidities. Rest of plan per hospitalist and other consultants. Thank you, Dr. Alcazar, for allowing me to participate in this patient's care. Further recommendations will depend on the patient's clinical course. Please do not hesitate to contact me if you have any questions or concerns. This medical document was created using an electronic medical record system with [employer] dictation system. Although these documentations are being carefully reviewed, there may still be some phonetic and typographical changes. The errors are purely typographical, due to imperfection on the software program, and do not reflect any compromise in the patient's medical care. Plan discussed with: Patient, Other (RN) DENA DRAPER MD Mar 29, 2024 23:12
[2024-03-30] VITALS (62 sets, daily range): BP systolic 113–143; BP diastolic 41–79; PULSE 50–91; RESP 13–31; TEMP 97.4–98.7; O2SAT 14–97
[2024-03-30 05:37] LABS: Alanine Aminotransferase 25 U/L (7-40); Albumin 3.5 g/dL (3.2-4.8); Alkaline Phosphatase 59 U/L (46-116); Aspartate Aminotransferase 29 U/L (13-40); Calcium 9.4 mg/dL (8.7-10.4); Chloride 101 mmol/L (98-107); Potassium 3.7 mmol/L (3.5-5.1)
[2024-03-30 05:38] LABS: Anion Gap 8 (5-15); Bilirubin, Total 0.5 mg/dL (0.2-1.0); Blood Urea Nitrogen 17 mg/dL (9-23); Sodium 140 mmol/L (136-145); Total Protein 5.8 g/dL (5.7-8.2)
[2024-03-30 05:41] LABS: Carbon Dioxide 31 mmol/L (20-31); Glucose 151 mg/dL (74-106)
[2024-03-30] MEDS: ACETYLCYSTEINE 10 %(100MG/ML) SOL 4ML NEB SCH ×2 (09:32→18:41)
--- NOTE | 2024-03-30 09:49 | DVH ---
EXAM: XY CHEST XRAY 1 VIEW Indication: reevaluate lung parenchyma Technique: Single frontal view of the chest was obtained Comparison: XY CHEST PORTABLE on DOS: 03/28/24, XY CHEST XRAY 1 VIEW on DOS: 03/27/24, XY CHEST XRAY 1 VIEW on DOS: 03/26/24 FINDINGS: Lines and Tubes: None Lungs: Diffuse interstitial opacities are unchanged. Pleura: No effusion. No pneumothorax. Cardiomediastinal contours: Unchanged. Bones: No acute osseous abnormality. IMPRESSION: No significant change compared to prior exam.
[2024-03-30] MEDS ORDERED: CITALOPRAM HYDROBR 20 MG TAB PO SCH (10:00)
[2024-03-30] MEDS ORDERED: PATIENTS OWN MEDICATION PO SCH (10:00)
[2024-03-30] MEDS: FUROSEMIDE 40 MG/4 ML VIAL IV ONE (11:12)
--- NOTE | 2024-03-30 17:13 | DVHPNRES ---
Progress Note Date Seen: Mar 30, 2024 Resident Creating Document: KRISTOFER CHAVES RESIDENT Has the PT tested + for MRSA If YES, has PT been informed?: No Medical Necessity Reason Pt with a Central, PICC or Fol: Yes The following are medically ne: Carreno Catheter Reason for carreno catheter: Strict I&O Subjective Review of Systems This is a 59-year-old female past medical history of hypothyroidism, hypertension, dyslipidemia and kidney stone came to the hospital With a chief complaint of shortness of breath for 2 days prior to this admission. the patient stated that she has she had fever, flu-like symptoms 5 days ago went to the urgent care and advised her to take doxycycline drink and vitamin-D but her symptoms progressively getting worse that prompted this visit. She also mentioned for last 2 days shortness of breath getting worse and was not able to go to washroom felt gasping of air, saturation was 84% associated with cough and greenish to brownish sputum. Patient was admitted for further assessment and management. Patient was seen and examined on the bedside. she is alert oriented x3 and mentioned feeling better than yesterday. Patient is on high-flow oxygen nasal cannula with FiO2 50 and BiPAP nighttime with the setting of 10 / 5. ordered CT chest with contrast, HIV and ILD panel . We are continuing same treatment IV doxycycline 100 mg b.i.d., IV Zosyn 3.375 mg Q 8 hours ,IV fluconazole 400 mg daily, Methylprednisolone 40 mg b.i.d. and IV Lasix 40 mg once. Objective vital signs Vital Sign Date Time Temp Pulse Resp B/P (MAP) Pulse Ox O2 Delivery O2 Flow Rate FiO2 03/30/24 14:12 55 14 92 50.0 50 03/30/24 12:00 98.7 133/76 (95) 98.7 03/30/24 10:00 Hi-Flow Heated NC+ Total Intake and Output 03/29/24 03/29/24 03/30/24 15:00 23:00 07:00 Intake Total 350 ml 125 ml 650 ml Output Total 90 ml 725 ml Balance 350 ml 35 ml -75 ml medications Current Medications Medications Dose Ordered Sig/[place] Route Start Time Stop Time Status Last Admin Dose Admin Nitroglycerin 0.4 mg Q5MINP PRN SL 03/23/24 22:45 Acetaminophen 650 mg Q4HP PRN PO 03/24/24 00:00 03/26/24 01:55 650 MG Enoxaparin Sodium 40 mg DAILY SC 03/25/24 10:00 03/30/24 09:54 40 MG Doxycycline Hyclate 100 ml @ 50 mls/hr Q12H IV 03/24/24 01:00 03/30/24 13:06 50 MLS/HR Ipratropium [place] 0.5 mg Q4HWA NEB 03/24/24 06:00 03/30/24 14:12 0.5 MG Albuterol 2.5 mg Q4HWA NEB 03/24/24 06:00 03/30/24 14:12 2.5 MG Levothyroxine Sodium 75 mcg QAM@0600 PO 03/24/24 06:00 03/30/24 06:18 75 MCG Atorvastatin Calcium 40 mg HS PO 03/25/24 22:00 03/29/24 21:23 40 MG Acetaminophen/ Hydrocodone Bitart 1 tab Q6HPRN PRN PO 03/24/24 16:45 03/29/24 18:47 1 TAB Melatonin 5 mg HS PO 03/25/24 22:00 03/29/24 21:23 5 MG Piperacillin Sod/ Tazobactam Sod 100 ml @ 25 mls/hr Q8HR IV 03/26/24 16:00 03/30/24 13:06 25 MLS/HR Pantoprazole Sodium 40 mg DAILY IV 03/27/24 10:00 03/30/24 09:54 40 MG Methylprednisolone Sodium Succinate 40 mg BID IV 03/26/24 10:30 03/30/24 09:53 40 MG Fluconazole 100 ml @ 100 mls/hr 10,11 IV 03/29/24 10:00 03/30/24 10:58 100 MLS/HR Patient Own Medication 1 DAILY PO 03/30/24 10:00 UNV Patient Own Medication 1 DAILY PO 03/29/24 17:00 03/30/24 10:11 1 Ibuprofen 600 mg BID PO 03/29/24 22:00 04/01/24 23:00 03/30/24 09:53 600 MG Acetylcysteine 100 mg Q4HWA NEB 03/30/24 18:00 UNV Examination Physical examination: General Appearance: Alert, Oriented X3, Cooperative, No acute distress HEENT: Atraumatic, PERRLA, EOMI, Mucous membrane moist/pink Respiratory: Vesiculer breath sounds on the right side and decreased breath sounds on the left side, no crackles and wheezing Cardiovascular: Regular rate, Normal S1, Normal S2, No murmurs, no chest wall tenderness Abdominal: Normal bowel sounds, Soft, No tenderness, No hepatospenomegaly, No masses Extremities: No clubbing, No cyanosis, No edema, Normal pulses, No tenderness/swelling Skin: No rashes, No breakdown, No significant lesion Neuro: Normal gait, Normal speech, Strength at 5/5 X4 ext, Normal tone, Sensation intact, grossly intact cranial nerves. Psych/Mental Status: Mental status NL, Mood NL laboratory and microbiology Laboratory Tests 03/30/24 04:55 03/29/24 19:33 Test 03/30/24 04:55 Range/Units Serum Glucose 151 H 74-106 mg/dL Microbiology Date/Time Source Procedure Growth Status 03/26/24 09:29 Nose MRSA Screen - Final Complete 03/26/24 03:08 Sputum Gram Stain - Final Complete 03/26/24 03:08 Sputum Respiratory Culture - Final Complete 03/23/24 15:56 Blood Blood Culture - Final NO GROWTH AFTER 5 DAYS OF INCUBATION. Complete Labs and/or images reviewed: Labs reviewed by me, Image(s) reviewed by me Problem List/Assessment/Plan Problem List/Assessment/Plan Assessment/Plan # Acute hypoxic respiratory failure, likely due to gram positive/ gram negative pneumonia # Possible multifocal pneumonia # Possible Acute respiratory distress syndrme # Possible SIRS/ Sepsis, secondary to pneumonia # Ruled out Pulmonary embolism # Possible COPD exaccerbation # Possible interstitial lung disease/ PCP pneumonia - Ordered HIV, ILD panel and CT chest without contrast - Chest xray on 03/26/24 showed Cardiomegaly with pulmonary congestion and edema. Superimposed pneumonia cannot be excluded. - BNP is mildly elevated - Chest x-ray shows bilateral lower zone infiltration - Chest CTA showed, airspace disease in the posterior costophrenic angles bilaterally, no pulmonary emboli. - Covid/ Flu negative , and blood c/s revealed no growth in 72 hours of incubation. - Pending sputum c/s and MRSA nares - IV Zosyn 3.375 mg Q8hr and IV doxycycline 100 mg b.i.d. and IV fluconazole 400 mg daily - IV methylprednisolone 40 mg b.i.d - IV Lasix 40 mg once. - Duoneb with albuterol and ipratropium q.4 hours - Incentive spirometry. - Echo revealed EF 55% with normal RV function. # History of hypothyroidism - levothyroxine 75 mcg q.a.m. # Dyslipidemia - atorvastatin 40 mg at HS # Prediabetic, hemoglobin A1c 5.8 - Counseled patient regarding low carb diet, lifestyle modification and physical exercise DIET: Cardiac diet DVT PROPHYLAXIS: Lovenox CODE STATUS: Goal of care discussed for more than 23 minutes, full DISPOSITION: Med/surge Plan discussed with Plan discussed with: Patient, Other My Orders My Orders Orders - KRISTOFER CHAVES Procedure Category Date Status Time Lexie; Direct LAB 03/30/24 In Process 10:17 Rheumatoid Arthritis LAB 03/30/24 In Process Factor 10:[address] 03/31/24 Logged 10:28 Date of Service: Mar 30, 2024 Billing Provider: AMY WRIGHT MD Common Visit Codes: [id number] INP/OBS CARE(HIGH) KRISTOFER CHAVES Mar 30, 2024 17:12 AMY WRIGHT MD Apr 04, 2024 00:08
--- NOTE | 2024-03-30 22:28 | DVHPN2 ---
Progress Note - Dictate Date Seen: Mar 30, 2024 Has the PT tested + for MRSA If YES, has PT been informed?: No Medical Necessity Reason Pt with a Central, PICC or Fol: Yes The following are medically ne: Carreno Catheter Reason for carreno catheter: Strict I&O Subjective Patient seen and examined at bedside. Remains on supplemental oxygen Overnight events reviewed. vital signs Vital Sign Date Time Temp Pulse Resp B/P (MAP) Pulse Ox O2 Delivery O2 Flow Rate FiO2 03/30/24 20:00 70 03/30/24 18:45 17 92 03/30/24 18:34 45.0 60 03/30/24 18:34 Nasal Cannula 03/30/24 12:00 98.7 98.7 Total Intake and Output 03/29/24 03/29/24 03/30/24 15:00 23:00 07:00 Intake Total 350 ml 125 ml 675 ml Output Total 90 ml 725 ml Balance 350 ml 35 ml -50 ml medications Current Medications Medications Dose Ordered Sig/[place] Route Start Time Stop Time Status Last Admin Dose Admin Nitroglycerin 0.4 mg Q5MINP PRN SL 03/23/24 22:45 Acetaminophen 650 mg Q4HP PRN PO 03/24/24 00:00 03/26/24 01:55 650 MG Enoxaparin Sodium 40 mg DAILY SC 03/25/24 10:00 03/30/24 09:54 40 MG Doxycycline Hyclate 100 ml @ 50 mls/hr Q12H IV 03/24/24 01:00 03/30/24 13:06 50 MLS/HR Ipratropium [place] 0.5 mg Q4HWA [facility] 03/24/24 06:00 03/30/24 18:40 0.5 MG Albuterol 2.5 mg Q4HWA NEB 03/24/24 06:00 03/30/24 18:40 2.5 MG Levothyroxine Sodium 75 mcg QAM@0600 PO 03/24/24 06:00 03/30/24 06:18 75 MCG Atorvastatin Calcium 40 mg HS PO 03/25/24 22:00 03/30/24 21:05 40 MG Acetaminophen/ Hydrocodone Bitart 1 tab Q6HPRN PRN PO 03/24/24 16:45 03/29/24 18:47 1 TAB Melatonin 5 mg HS PO 03/25/24 22:00 03/30/24 21:05 5 MG Piperacillin Sod/ Tazobactam Sod 100 ml @ 25 mls/hr Q8HR IV 03/26/24 16:00 03/30/24 21:05 25 MLS/HR Pantoprazole Sodium 40 mg DAILY IV 03/27/24 10:00 03/30/24 09:54 40 MG Methylprednisolone Sodium Succinate 40 mg BID IV 03/26/24 10:30 03/30/24 21:05 40 MG Fluconazole 100 ml @ 100 mls/hr 10,11 IV 03/29/24 10:00 03/30/24 10:58 100 MLS/HR Patient Own Medication 1 DAILY PO 03/30/24 10:00 UNV Patient Own Medication 1 DAILY PO 03/29/24 17:00 03/30/24 10:11 1 Ibuprofen 600 mg BID PO 03/29/24 22:00 04/01/24 23:00 03/30/24 21:06 600 MG Acetylcysteine 100 mg Q4HWA NEB 03/30/24 18:00 03/30/24 18:41 100 MG objective Gen.: Patient lying in bed in no apparent distress. On supplemental oxygen. Head: Normocephalic, atraumatic. Eyes: EOMI/PERRLA. Ears: Normal hearing. Normal anatomy. Neck/trachea: Trachea midline, supple. Nose: Normal external anatomy. Mouth: Moist mucous membranes. Chest: Decreased air entry bilaterally. No wheezing or rhonchi. Cardiovascular: Positive S1, positive S2. Regular rate and rhythm. Abdomen: Positive bowel sounds in all 4 quadrants. Soft, non-tender, non- distended. : Deferred. Rectal: Deferred. Skin: Warm, dry. Intact. Extremities: 2+ radial pulses bilaterally. No lower extremity edema. Neuro: Awake, alert, oriented x3. No gross motor or sensory deficits. Cranial nerves II through XII intact. Gait not assessed. laboratory and microbiology Laboratory Tests 03/30/24 04:55 03/29/24 19:33 Test 03/30/24 04:55 Range/Units Serum Glucose 151 H 74-106 mg/dL Assessment/Plan Impression: Acute hypoxic respiratory failure Acute respiratory distress syndrome Multifocal pneumonia Hx of nicotine dependence Obesity BMI 33.4 Atelectasis Events: Remains on supplemental oxygen High flow O2 with flow rate 45 LPM, FiO2 60% Taper FiO2 as tolerated O2 requirements slowly improving. Prone as tolerated. Continue IV steroids Continue antibiotics Continue antifungal Incentive spirometry Diurese as tolerated w/ Lasix Monitor renal function. Monitor electrolytes. Supplement as necessary. Labs and imaging reviewed. Rest of plan as noted below. Plan: ABG notable for P/F ratio below 100. CTA reviewed, no e/o pulmonary embolism. Multifocal airspace opacities. On BiPAP alternating with high flow oxygen Recommend proning or laying on side. Titrate to keep O2 sats above 92%. Continue bronchodilators. Continue antibiotics - Zosyn IV steroids Pain control Avoid oversedation Diurese to euvolemia w/ Lasix Monitor renal function. Monitor electrolytes. Supplement as necessary. Monitor ins and outs. DVT prophylaxis. Prognosis: Poor given patient's multiple co-morbidities. Rest of plan per hospitalist and other consultants. Thank you, Dr. Alcazar, for allowing me to participate in this patient's care. Further recommendations will depend on the patient's clinical course. Please do not hesitate to contact me if you have any questions or concerns. This medical document was created using an electronic medical record system with [employer] dictation system. Although these documentations are being carefully reviewed, there may still be some phonetic and typographical changes. The errors are purely typographical, due to imperfection on the software program, and do not reflect any compromise in the patient's medical care. Plan discussed with: Patient, Other (RN) DENA RDAPER MD Mar 30, 2024 22:28
[2024-03-31] VITALS (66 sets, daily range): BP systolic 104–147; BP diastolic 52–81; PULSE 51–92; RESP 12–29; TEMP 98–99.7; O2SAT 81–97
[2024-03-31 05:41] LABS: Hematocrit 35.1 % (36.0-46.0); Hemoglobin 11.7 g/dL (12.2-16.2); Mean Corpuscular Hemoglobin 30.1 pg (28.0-32.0); Mean Corpuscular Hgb Conc. 33.4 g/dL (32.0-36.0); Mean Corpuscular Volume 90.2 fL (80.0-100.0); Platelet Count (auto) 430 10^3/uL (140-450); White Blood Cell 11.6 10^3/uL (4.4-10.8)
[2024-03-31 05:44] LABS: Basophils % (manual) 0 (0.0-2.0); Blast Cells 0; Eosinophils % (manual) 0 (0-7); Metamyelocytes % 0; Myelocytes % 0; Promyelocytes % 0; Reactive Lymphocytes 0
[2024-03-31 06:02] LABS: Alanine Aminotransferase 25 U/L (7-40); Albumin 3.4 g/dL (3.2-4.8); Alkaline Phosphatase 54 U/L (46-116); Anion Gap 8 (5-15); Aspartate Aminotransferase 28 U/L (13-40); BUN/Creatinine Ratio 26.5 (10.0-20.0); Blood Urea Nitrogen 18 mg/dL (9-23); Calcium 9.2 mg/dL (8.7-10.4); Carbon Dioxide 30 mmol/L (20-31); Chloride 101 mmol/L (98-107); Potassium 3.5 mmol/L (3.5-5.1); Sodium 139 mmol/L (136-145)
[2024-03-31 06:03] LABS: Bilirubin, Total 0.5 mg/dL (0.2-1.0); Glucose 157 mg/dL (74-106); Total Protein 5.6 g/dL (5.7-8.2)
[2024-03-31 07:11] LABS: Band Neutrophils % (manual) 3; Lymphocytes % (manual) 7 (10.0-50.0); Monocytes % (manual) 2 (0-12); Platelet Estimate Adequate
[2024-03-31 12:06] LABS: Anti-Nuclear Antibody Direct Negative (Negative)
--- NOTE | 2024-03-31 12:06 | DVHPNRES ---
Progress Note Date Seen: Mar 31, 2024 Resident Creating Document: KALPANA COTTER RESIDENT Has the PT tested + for MRSA If YES, has PT been informed?: No Medical Necessity Reason Pt with a Central, PICC or Fol: Yes The following are medically ne: Carreno Catheter Reason for carreno catheter: Strict I&O Subjective Review of Systems This is a 59-year-old female past medical history of hypothyroidism, hypertension, dyslipidemia and kidney stone came to the hospital With a chief complaint of shortness of breath for 2 days prior to this admission. the patient stated that she has she had fever, flu-like symptoms 5 days ago went to the urgent care and advised her to take doxycycline drink and vitamin-D but her symptoms progressively getting worse that prompted this visit. She also mentioned for last 2 days shortness of breath getting worse and was not able to go to washroom felt gasping of air, saturation was 84% associated with cough and greenish to brownish sputum. Patient was admitted for further assessment and management. Patient seen and examined at bedside. The patient is alert and oriented in person, place and time. The patient is currently on high-flow nasal cannula at 40 L of oxygen with an FiO2 of 50% saturating 98%. We will continue IV Zosyn, doxycycline and IV fluconazole. Electric Deicer Inspector on board. Continue current medical management at this time. We will order chest x ray for tomorrow AM. ROS Constitutional: Denies weight loss, fever and chills. HEENT: Denies changes in vision and hearing. Respiratory: Reports mild shortness of breath. Denies cough Cardiovascular: Denies chest discomfort or palpitations GI: Denies abdominal pain, nausea, vomiting and diarrhea. : Denies dysuria and urinary frequency. Musculoskeletal: Denies myalgias and joint pain Skin: Denies rash and pruritus. Neurological: Denies dizziness, headache, vision or hearing problems Objective vital signs Vital Sign Date Time Temp Pulse Resp B/P (MAP) Pulse Ox O2 Delivery O2 Flow Rate FiO2 03/31/24 10:39 63 16 92 40.0 55 03/31/24 08:00 98.3 124/60 (81) 98.3 03/31/24 08:00 Hi-Flow Heated NC+ Total Intake and Output 03/30/24 03/30/24 03/31/24 15:00 23:00 07:00 Intake Total 325 ml 410 ml 440 ml Output Total 1600 ml 700 ml Balance 325 ml -1190 ml -260 ml medications Current Medications Medications Dose Ordered Sig/Saturnino Route Start Time Stop Time Status Last Admin Dose Admin Nitroglycerin 0.4 mg Q5MINP PRN SL 03/23/24 22:45 Acetaminophen 650 mg Q4HP PRN PO 03/24/24 00:00 03/26/24 01:55 650 MG Enoxaparin Sodium 40 mg DAILY SC 03/25/24 10:00 03/31/24 09:38 40 MG Doxycycline Hyclate 100 ml @ 50 mls/hr Q12H IV 03/24/24 01:00 03/31/24 01:12 50 MLS/HR Ipratropium [place] 0.5 mg Q4HWA [facility] 03/24/24 06:00 03/31/24 10:33 0.5 MG Albuterol 2.5 mg Q4HWA NEB 03/24/24 06:00 03/31/24 10:34 2.5 MG Levothyroxine Sodium 75 mcg QAM@0600 PO 03/24/24 06:00 03/31/24 05:26 75 MCG Atorvastatin Calcium 40 mg HS PO 03/25/24 22:00 03/30/24 21:05 40 MG Acetaminophen/ Hydrocodone Bitart 1 tab Q6HPRN PRN PO 03/24/24 16:45 03/29/24 18:47 1 TAB Melatonin 5 mg HS PO 03/25/24 22:00 03/30/24 21:05 5 MG Piperacillin Sod/ Tazobactam Sod 100 ml @ 25 mls/hr Q8HR IV 03/26/24 16:00 03/31/24 05:25 25 MLS/HR Pantoprazole Sodium 40 mg DAILY IV 03/27/24 10:00 03/31/24 09:38 40 MG Methylprednisolone Sodium Succinate 40 mg BID IV 03/26/24 10:30 03/31/24 09:37 40 MG Fluconazole 100 ml @ 100 mls/hr 10,11 IV 03/29/24 10:00 03/31/24 11:42 100 MLS/HR Patient Own Medication 1 DAILY PO 03/30/24 10:00 UNV Patient Own Medication 1 DAILY PO 03/29/24 17:00 03/31/24 09:39 1 Ibuprofen 600 mg BID PO 03/29/24 22:00 04/01/24 23:00 03/31/24 09:38 600 MG Acetylcysteine 100 mg Q4HWA NEB 03/30/24 18:00 03/31/24 10:34 100 MG Examination Physical Examination General: Patient alert and oriented in person, place and time. Patient following commands. HEENT: Normocephalic, atraumatic, moist mucous membranes Respiratory/pulmonary: The are crackles on bilateral lung dan that are more prominent on the right lung. no wheezes at this time. The patient is currently on HFNC at 40L of O2 Fio2 of 50% Cardiovascular: Normal heart sounds S1 and S2 with no associated murmurs Abdomen: Abdomen nondistended, there is no pain to palpation in any of the abdominal quadrants, no palpable masses. Extremities: There is no peripheral edema present at the lower extremities. Peripheral Pulses: 3+ Radial (R). 3+ Radial (L). 3+ Dorsalis pedis (R). 3+ Dorsalis pedis(L) Skin: No rashes or pruritus, there is no sacral edema present at this time. Neurological: Intact cranial nerves with no focal neurologic deficits laboratory and microbiology Laboratory Tests 03/31/24 05:05 Test 03/31/24 05:05 Range/Units Serum Glucose 157 H 74-106 mg/dL Microbiology Date/Time Source Procedure Growth Status 03/26/24 09:29 Nose MRSA Screen - Final Complete 03/26/24 03:08 Sputum Gram Stain - Final Complete 03/26/24 03:08 Sputum Respiratory Culture - Final Complete 03/23/24 15:56 Blood Blood Culture - Final NO GROWTH AFTER 5 DAYS OF INCUBATION. Complete Problem List/Assessment/Plan Problem List/Assessment/Plan Assessment/Plan Acute hypoxic respiratory failure, likely due to gram positive/ gram negative pneumonia Possible SIRS/ Sepsis, secondary to pneumonia as above Possible multifocal pneumonia Possible COPD exacerbation Ruled out PCP Pneumonia Ruled out Pulmonary embolism - Chest x-ray shows bilateral lower zone infiltration - Chest CTA showed, airspace disease in the posterior costophrenic angles bilaterally, no pulmonary emboli. - Covid/ Flu negative , Blood cultures came back negative. - IV Zosyn and doxycycline, IV fluconazole -Methylprednisolone 40 mg IV b.i.d. -Mucomyst -sputum culture growing Gram-negative rods and Gram-positive cocci in pairs. Oropharyngeal priya with yeast. -HIV test came back negative -Rheumatoid factor and STEPHON are still pending - Duoneb with albuterol and ipratropium q.4 hours - Incentive spirometry. -Echo revealed EF 55% with normal RV function. -Order chest x ray for tomorrow. History of hypothyroidism -Continue levothyroxine 75 mcg q.a.m. Dyslipidemia -Continue atorvastatin 40 mg at HS Prediabetic, hemoglobin A1c 5.8 - Counseled patient regarding low carb diet, lifestyle modification and physical exercise Goals of care discussed with the patient at bedside for > 20min, FULL CODE Plan discussed with Dr. Canales Plan discussed with: Patient Date of Service: Mar 31, 2024 Billing Provider: GARRET CANALES MD Common Visit Codes: [id number] INP/OBS CARE(HIGH) KALPANA COTTER RESIDENT Mar 31, 2024 12:06 GARRET CANALES MD Apr 11, 2024 13:37
[2024-03-31 13:06] LABS: Rheumatoid Arthritis Factor <10.0 IU/mL (<14.0)
--- NOTE | 2024-03-31 21:56 | DVHPN2 ---
Progress Note - Dictate Date Seen: Mar 31, 2024 Has the PT tested + for MRSA If YES, has PT been informed?: No Medical Necessity Reason Pt with a Central, PICC or Fol: Yes The following are medically ne: Carreno Catheter Reason for carreno catheter: Strict I&O Subjective Patient seen and examined at bedside. Remains on supplemental oxygen Overnight events reviewed. vital signs Vital Sign Date Time Temp Pulse Resp B/P (MAP) Pulse Ox O2 Delivery O2 Flow Rate FiO2 03/31/24 21:00 68 20 104/58 (73) 89 03/31/24 20:00 Hi-Flow Heated NC+ 50 60 60 03/31/24 20:00 98.1 98.1 Total Intake and Output 03/30/24 03/30/24 03/31/24 15:00 23:00 07:00 Intake Total 325 ml 410 ml 480 ml Output Total 1600 ml 700 ml Balance 325 ml -1190 ml -220 ml medications Current Medications Medications Dose Ordered Sig/Saturnino Route Start Time Stop Time Status Last Admin Dose Admin Nitroglycerin 0.4 mg Q5MINP PRN SL 03/23/24 22:45 Acetaminophen 650 mg Q4HP PRN PO 03/24/24 00:00 03/26/24 01:55 650 MG Enoxaparin Sodium 40 mg DAILY SC 03/25/24 10:00 03/31/24 09:38 40 MG Doxycycline Hyclate 100 ml @ 50 mls/hr Q12H IV 03/24/24 01:00 03/31/24 12:51 50 MLS/HR Ipratropium [place] 0.5 mg Q4HWA [facility] 03/24/24 06:00 03/31/24 19:03 0.5 MG Albuterol 2.5 mg Q4HWA [facility] 03/24/24 06:00 03/31/24 19:03 2.5 MG Levothyroxine Sodium 75 mcg QAM@0600 PO 03/24/24 06:00 03/31/24 05:26 75 MCG Atorvastatin Calcium 40 mg HS PO 03/25/24 22:00 03/30/24 21:05 40 MG Acetaminophen/ Hydrocodone Bitart 1 tab Q6HPRN PRN PO 03/24/24 16:45 03/29/24 18:47 1 TAB Melatonin 5 mg HS PO 03/25/24 22:00 03/30/24 21:05 5 MG Piperacillin Sod/ Tazobactam Sod 100 ml @ 25 mls/hr Q8HR IV 03/26/24 16:00 03/31/24 15:46 25 MLS/HR Pantoprazole Sodium 40 mg DAILY IV 03/27/24 10:00 03/31/24 09:38 40 MG Methylprednisolone Sodium Succinate 40 mg BID IV 03/26/24 10:30 03/31/24 09:37 40 MG Patient Own Medication 1 DAILY PO 03/30/24 10:00 UNV Patient Own Medication 1 DAILY PO 03/29/24 17:00 03/31/24 09:39 1 Ibuprofen 600 mg BID PO 03/29/24 22:00 04/01/24 23:00 03/31/24 09:38 600 MG Acetylcysteine 100 mg Q4HWA NEB 03/30/24 18:00 03/31/24 19:03 100 MG objective Gen.: Patient lying in bed in no apparent distress. On supplemental oxygen. Head: Normocephalic, atraumatic. Eyes: EOMI/PERRLA. Ears: Normal hearing. Normal anatomy. Neck/trachea: Trachea midline, supple. Nose: Normal external anatomy. Mouth: Moist mucous membranes. Chest: Decreased air entry bilaterally. No wheezing or rhonchi. Cardiovascular: Positive S1, positive S2. Regular rate and rhythm. Abdomen: Positive bowel sounds in all 4 quadrants. Soft, non-tender, non- distended. : Deferred. Rectal: Deferred. Skin: Warm, dry. Intact. Extremities: 2+ radial pulses bilaterally. No lower extremity edema. Neuro: Awake, alert, oriented x3. No gross motor or sensory deficits. Cranial nerves II through XII intact. Gait not assessed. laboratory and microbiology Laboratory Tests 03/31/24 05:05 Test 03/31/24 05:05 Range/Units Serum Glucose 157 H 74-106 mg/dL Assessment/Plan Impression: Acute hypoxic respiratory failure Acute respiratory distress syndrome Multifocal pneumonia Hx of nicotine dependence Obesity BMI 33.4 Atelectasis Events: Remains on supplemental oxygen High flow O2 with flow rate 40 LPM, FiO2 55% Taper FiO2 as tolerated O2 requirements slowly improving. Prone as tolerated. Productive cough Continue IV steroids Continue antibiotics Continue antifungal Incentive spirometry Maintain euvolemia Monitor renal function. Monitor electrolytes. Supplement as necessary. Monitor K, Mg Labs and imaging reviewed. Rest of plan as noted below. Plan: ABG notable for P/F ratio below 100. CTA reviewed, no e/o pulmonary embolism. Multifocal airspace opacities. BiPAP alternating with high flow oxygen Recommend proning or laying on side. Titrate to keep O2 sats above 92%. Continue bronchodilators. Continue antibiotics - Zosyn IV steroids Pain control Avoid oversedation Maintain euvolemia Monitor renal function. Monitor electrolytes. Supplement as necessary. Monitor ins and outs. DVT prophylaxis. Prognosis: Poor given patient's multiple co-morbidities. Rest of plan per hospitalist and other consultants. Thank you, Dr. Alcazar, for allowing me to participate in this patient's care. Further recommendations will depend on the patient's clinical course. Please do not hesitate to contact me if you have any questions or concerns. This medical document was created using an electronic medical record system with [employer] dictation system. Although these documentations are being carefully reviewed, there may still be some phonetic and typographical changes. The errors are purely typographical, due to imperfection on the software program, and do not reflect any compromise in the patient's medical care. Plan discussed with: Patient, Other (NURIA Elliott) DENA DRAPER MD Mar 31, 2024 21:56
[2024-04-01] VITALS (38 sets, daily range): BP systolic 101–143; BP diastolic 57–74; PULSE 54–100; RESP 12–23; TEMP 97–98.8; O2SAT 86–99
[2024-04-01 05:53] LABS: Chloride 103 mmol/L (98-107); Potassium 4.1 mmol/L (3.5-5.1); Sodium 140 mmol/L (136-145)
[2024-04-01 05:54] LABS: Anion Gap 8 (5-15); Carbon Dioxide 29 mmol/L (20-31)
[2024-04-01 05:55] LABS: Hematocrit 33.6 % (36.0-46.0); Hemoglobin 11.2 g/dL (12.2-16.2); Mean Corpuscular Hemoglobin 29.8 pg (28.0-32.0); Mean Corpuscular Hgb Conc. 33.4 g/dL (32.0-36.0); Mean Corpuscular Volume 89.4 fL (80.0-100.0); Platelet Count (auto) 420 10^3/uL (140-450); Red Blood Cells 3.75 10^6/uL (4.0-5.20); Red Cell Distribution Width 13.9 % (11.8-14.3); White Blood Cell 13.5 10^3/uL (4.4-10.8)
[2024-04-01 05:59] LABS: BUN/Creatinine Ratio 22.2 (10.0-20.0); Blood Urea Nitrogen 16 mg/dL (9-23)
[2024-04-01 06:00] LABS: Magnesium 2.3 mg/dL (1.6-2.6)
[2024-04-01 06:18] LABS: Glucose 156 mg/dL (74-106)
[2024-04-01 06:43] LABS: Basophils % (manual) 0 (0.0-2.0); Blast Cells 0; Eosinophils % (manual) 0 (0-7); Metamyelocytes % 0; Myelocytes % 0; Promyelocytes % 0; Reactive Lymphocytes 0
--- NOTE | 2024-04-01 06:51 | DVH ---
EXAM: XY CHEST XRAY 1 VIEW HISTORY: reevaluate multifocal pna COMPARISON: XY CHEST XRAY 1 VIEW on DOS: 03/30/24, XY CHEST PORTABLE on DOS: 03/28/24, XY CHEST XRAY 1 VIEW on DOS: 03/27/24, XY CHEST XRAY 1 VIEW on DOS: 03/26/24, chest CT dated 03/23/2024 TECHNIQUE: Portable AP view of the chest was performed. FINDINGS: Are peripheral interstitial infiltrates, stable. No pneumothorax, new consolidative infiltrates, or p ulmonary edema. The heart is not enlarged. IMPRESSION: Bilateral peripheral interstitial infiltrates are stable and may be due to atypical pneumonia or specialist managers khadra interstitial pulmonary fibrosis.
[2024-04-01 08:17] LABS: Band Neutrophils % (manual) 4; Lymphocytes % (manual) 9 (10.0-50.0); Monocytes % (manual) 3 (0-12); Platelet Estimate Adequate
[2024-04-01] MEDS: methylPREDNISolone SOD SUCC 40 MG/ML VL IV SCH (08:48)
--- NOTE | 2024-04-01 14:31 | DVHPNRES ---
Progress Note Date Seen: Apr 01, 2024 Resident Creating Document: KRISTOFER CHAVES RESIDENT Has the PT tested + for MRSA If YES, has PT been informed?: No Medical Necessity Reason Pt with a Central, PICC or Fol: Yes The following are medically ne: Carreno Catheter Reason for carreno catheter: Strict I&O Subjective Review of Systems This is a 59-year-old female past medical history of hypothyroidism, hypertension, dyslipidemia and kidney stone came to the hospital With a chief complaint of shortness of breath for 2 days prior to this admission. the patient stated that she has she had fever, flu-like symptoms 5 days ago went to the urgent care and advised her to take doxycycline drink and vitamin-D but her symptoms progressively getting worse that prompted this visit. She also mentioned for last 2 days shortness of breath getting worse and was not able to go to washroom felt gasping of air, saturation was 84% associated with cough and greenish to brownish sputum. Patient was admitted for further assessment and management. Patient seen and examined at bedside. The patient is alert and oriented in person, place and time. The patient is currently on high-flow nasal cannula at 35L of oxygen with an FiO2 of 55% saturating 98%. We will continue IV Zosyn, doxycycline . Digital Color Press Operator on board. Continue current medical management at this time. new chest xray on 04/01/24 demonstrated Bilateral peripheral interstitial infiltrates are stable and may be due to atypical pneumonia or chronic interstitial pulmonary fibrosis Objective vital signs Vital Sign Date Time Temp Pulse Resp B/P (MAP) Pulse Ox O2 Delivery O2 Flow Rate FiO2 04/01/24 14:00 73 21 101/66 (78) 86 04/01/24 12:00 97.0 97.0 04/01/24 12:00 Hi-Flow Heated NC+ 35 55 55 Total Intake and Output 03/31/24 03/31/24 04/01/24 15:00 23:00 07:00 Intake Total 160 ml 275 ml 440 ml Output Total 1300 ml Balance 160 ml 275 ml -860 ml medications Current Medications Medications Dose Ordered Sig/Saturnino Route Start Time Stop Time Status Last Admin Dose Admin Nitroglycerin 0.4 mg Q5MINP PRN SL 03/23/24 22:45 Acetaminophen 650 mg Q4HP PRN PO 03/24/24 00:00 03/26/24 01:55 650 MG Enoxaparin Sodium 40 mg DAILY SC 03/25/24 10:00 04/01/24 08:48 40 MG Doxycycline Hyclate 100 ml @ 50 mls/hr Q12H IV 03/24/24 01:00 04/01/24 13:17 50 MLS/HR Ipratropium [place] 0.5 mg Q4HWA NEB 03/24/24 06:00 04/01/24 14:19 0.5 MG Albuterol 2.5 mg Q4HWA NEB 03/24/24 06:00 04/01/24 14:19 2.5 MG Levothyroxine Sodium 75 mcg QAM@0600 PO 03/24/24 06:00 04/01/24 05:27 75 MCG Atorvastatin Calcium 40 mg HS PO 03/25/24 22:00 03/31/24 21:45 40 MG Acetaminophen/ Hydrocodone Bitart 1 tab Q6HPRN PRN PO 03/24/24 16:45 03/29/24 18:47 1 TAB Melatonin 5 mg HS PO 03/25/24 22:00 03/31/24 21:46 5 MG Piperacillin Sod/ Tazobactam Sod 100 ml @ 25 mls/hr Q8HR IV 03/26/24 16:00 04/01/24 05:27 25 MLS/HR Pantoprazole Sodium 40 mg DAILY IV 03/27/24 10:00 04/01/24 08:48 40 MG Patient Own Medication 1 DAILY PO 03/30/24 10:00 UNV Patient Own Medication 1 DAILY PO 03/29/24 17:00 04/01/24 08:48 1 Ibuprofen 600 mg BID PO 03/29/24 22:00 04/01/24 23:00 04/01/24 08:48 600 MG Acetylcysteine 100 mg Q4HWA NEB 03/30/24 18:00 04/01/24 14:19 100 MG Methylprednisolone Sodium Succinate 20 mg DAILY IV 04/01/24 07:45 04/01/24 08:48 20 MG Examination Physical examination: General Appearance: Alert, Oriented X3, Cooperative, No acute distress HEENT: Atraumatic, PERRLA, EOMI, Mucous membrane moist/pink Respiratory: bilateral crackles more on the Rt side , no wheezing. Cardiovascular: Regular rate, Normal S1, Normal S2, No murmurs, no chest wall tenderness Abdominal: Normal bowel sounds, Soft, No tenderness, No hepatospenomegaly, No masses Extremities: No clubbing, No cyanosis, No edema, Normal pulses, No tenderness/swelling Skin: No rashes, No breakdown, No significant lesion Neuro: Normal gait, Normal speech, Strength at 5/5 X4 ext, Normal tone, Sensation intact, grossly intact cranial nerves Psych/Mental Status: Mental status NL, Mood NL laboratory and microbiology Laboratory Tests 04/01/24 05:05 Test 04/01/24 05:05 Range/Units Serum Glucose 156 H 74-106 mg/dL Microbiology Date/Time Source Procedure Growth Status 03/30/24 00:00 Sputum Gram Stain - Final Resulted 03/30/24 00:00 Sputum Respiratory Culture - Preliminary Resulted 03/26/24 09:29 Nose MRSA Screen - Final Complete 03/23/24 15:56 Blood Blood Culture - Final NO GROWTH AFTER 5 DAYS OF INCUBATION. Complete Labs and/or images reviewed: Labs reviewed by me, Image(s) reviewed by me Problem List/Assessment/Plan Problem List/Assessment/Plan Assessment/Plan Acute hypoxic respiratory failure, likely due to gram positive/ gram negative pneumonia Possible SIRS/ Sepsis, secondary to pneumonia as above Possible multifocal pneumonia Possible COPD exacerbation Ruled out PCP Pneumonia Ruled out Pulmonary embolism - Chest x-ray shows bilateral lower zone infiltration - Chest CTA showed, airspace disease in the posterior costophrenic angles bilaterally, no pulmonary emboli. - Covid/ Flu negative , Blood cultures came back negative. - IV Zosyn 3.375 mg Q8hr and IV doxycycline 100 mg b.i.d - IV Methylprednisolone 20 mg IV daily. -Mucomyst -sputum culture growing Gram-negative rods and Gram-positive cocci in pairs. Oropharyngeal priya with yeast. -HIV test came back negative -Rheumatoid factor and STEPHON are negative - Duoneb with albuterol and ipratropium q.4 hours - Incentive spirometry. -Echo revealed EF 55% with normal RV function. History of hypothyroidism -Continue levothyroxine 75 mcg q.a.m. Dyslipidemia -Continue atorvastatin 40 mg at HS Prediabetic, hemoglobin A1c 5.8 - Counseled patient regarding low carb diet, lifestyle modification and physical exercise Goals of care discussed with the patient at bedside for > 20min, FULL CODE Plan discussed with Dr. Canales Plan discussed with: Patient, Other My Orders My Orders Orders - KRISTOFER CHAVES Procedure Category Date Status Time Methylprednisolone [facility] 04/01/24 In Process Sod Succ (Solu Medrol 07:45 Date of Service: Apr 01, 2024 Billing Provider: GARRET CANALES MD Common Visit Codes: [id number] INP/OBS CARE(HIGH) KRISTOFER CHAVES RESIDENT Apr 01, 2024 14:31 GARRET CANALES MD Apr 18, 2024 11:55
--- NOTE | 2024-04-01 21:32 | DVHPN2 ---
Progress Note - Dictate Date Seen: Apr 01, 2024 Has the PT tested + for MRSA If YES, has PT been informed?: No Medical Necessity Reason Pt with a Central, PICC or Fol: Yes The following are medically ne: Carreno Catheter Reason for carreno catheter: Strict I&O Subjective Patient seen and examined at bedside. Remains on supplemental oxygen Overnight events reviewed. vital signs Vital Sign Date Time Temp Pulse Resp B/P (MAP) Pulse Ox O2 Delivery O2 Flow Rate FiO2 04/01/24 21:00 71 17 115/69 (84) 91 04/01/24 20:00 Hi-Flow Heated NC+ 35 60 60 04/01/24 20:00 98.5 98.5 Total Intake and Output 03/31/24 03/31/24 04/01/24 15:00 23:00 07:00 Intake Total 160 ml 275 ml 440 ml Output Total 1300 ml Balance 160 ml 275 ml -860 ml medications Current Medications Medications Dose Ordered Sig/Saturnino Route Start Time Stop Time Status Last Admin Dose Admin Nitroglycerin 0.4 mg Q5MINP PRN SL 03/23/24 22:45 Acetaminophen 650 mg Q4HP PRN PO 03/24/24 00:00 03/26/24 01:55 650 MG Enoxaparin Sodium 40 mg DAILY SC 03/25/24 10:00 04/01/24 08:48 40 MG Doxycycline Hyclate 100 ml @ 50 mls/hr Q12H IV 03/24/24 01:00 04/01/24 13:17 50 MLS/HR Ipratropium [place] 0.5 mg Q4HWA [facility] 03/24/24 06:00 04/01/24 18:51 0.5 MG Albuterol 2.5 mg Q4HWA [facility] 03/24/24 06:00 04/01/24 18:51 2.5 MG Levothyroxine Sodium 75 mcg QAM@0600 PO 03/24/24 06:00 04/01/24 05:27 75 MCG Atorvastatin Calcium 40 mg HS PO 03/25/24 22:00 03/31/24 21:45 40 MG Acetaminophen/ Hydrocodone Bitart 1 tab Q6HPRN PRN PO 03/24/24 16:45 03/29/24 18:47 1 TAB Melatonin 5 mg HS PO 03/25/24 22:00 03/31/24 21:46 5 MG Piperacillin Sod/ Tazobactam Sod 100 ml @ 25 mls/hr Q8HR IV 03/26/24 16:00 04/01/24 15:29 25 MLS/HR Pantoprazole Sodium 40 mg DAILY IV 03/27/24 10:00 04/01/24 08:48 40 MG Patient Own Medication 1 DAILY PO 03/30/24 10:00 UNV Patient Own Medication 1 DAILY PO 03/29/24 17:00 04/01/24 08:48 1 Ibuprofen 600 mg BID PO 03/29/24 22:00 04/01/24 23:00 04/01/24 08:48 600 MG Acetylcysteine 100 mg Q4HWA NEB 03/30/24 18:00 04/01/24 18:51 100 MG Methylprednisolone Sodium Succinate 20 mg DAILY IV 04/01/24 07:45 04/01/24 08:48 20 MG objective Gen.: Patient lying in bed in no apparent distress. On supplemental oxygen. Head: Normocephalic, atraumatic. Eyes: EOMI/PERRLA. Ears: Normal hearing. Normal anatomy. Neck/trachea: Trachea midline, supple. Nose: Normal external anatomy. Mouth: Moist mucous membranes. Chest: Decreased air entry bilaterally. No wheezing or rhonchi. Cardiovascular: Positive S1, positive S2. Regular rate and rhythm. Abdomen: Positive bowel sounds in all 4 quadrants. Soft, non-tender, non- distended. : Deferred. Rectal: Deferred. Skin: Warm, dry. Intact. Extremities: 2+ radial pulses bilaterally. No lower extremity edema. Neuro: Awake, alert, oriented x3. No gross motor or sensory deficits. Cranial nerves II through XII intact. Gait not assessed. laboratory and microbiology Laboratory Tests 04/01/24 05:05 Test 04/01/24 05:05 Range/Units Serum Glucose 156 H 74-106 mg/dL Assessment/Plan Impression: Acute hypoxic respiratory failure Acute respiratory distress syndrome Multifocal pneumonia Hx of nicotine dependence Obesity BMI 33.4 Atelectasis Events: Remains on supplemental oxygen High flow O2 with flow rate 40 -->35 LPM, FiO2 55 -->60% Taper FiO2 as tolerated Patient is out of bed to chair. Prone as tolerated. Productive cough Continue IV steroids Continue antibiotics Continue bronchodilators Incentive spirometry Diurese to euvolemia Monitor renal function. Monitor electrolytes. Supplement as necessary. Monitor K, Mg Labs and imaging reviewed. Rest of plan as noted below. Plan: ABG notable for P/F ratio below 100. CTA reviewed, no e/o pulmonary embolism. Multifocal airspace opacities. BiPAP alternating with high flow oxygen Recommend proning or laying on side. Titrate to keep O2 sats above 92%. Continue bronchodilators. Continue antibiotics - Zosyn IV steroids Pain control Avoid oversedation Maintain euvolemia Monitor renal function. Monitor electrolytes. Supplement as necessary. Monitor ins and outs. DVT prophylaxis. Prognosis: Poor given patient's multiple co-morbidities. Rest of plan per hospitalist and other consultants. Thank you, Dr. Alcazar, for allowing me to participate in this patient's care. Further recommendations will depend on the patient's clinical course. Please do not hesitate to contact me if you have any questions or concerns. This medical document was created using an electronic medical record system with [employer] dictation system. Although these documentations are being carefully reviewed, there may still be some phonetic and typographical changes. The errors are purely typographical, due to imperfection on the software program, and do not reflect any compromise in the patient's medical care. Plan discussed with: Patient, Other (NURIA Briggs) DENA DRAPER MD Apr 01, 2024 21:32
[2024-04-02] VITALS (34 sets, daily range): BP systolic 106–133; BP diastolic 52–78; PULSE 59–98; RESP 10–35; TEMP 98.3–98.9; O2SAT 87–97
[2024-04-02 05:48] LABS: Hematocrit 33.7 % (36.0-46.0); Hemoglobin 11.1 g/dL (12.2-16.2); Mean Corpuscular Hemoglobin 29.8 pg (28.0-32.0); Mean Corpuscular Hgb Conc. 32.8 g/dL (32.0-36.0); Platelet Count (auto) 396 10^3/uL (140-450); Red Cell Distribution Width 14.5 % (11.8-14.3); White Blood Cell 15.6 10^3/uL (4.4-10.8)
[2024-04-02 05:54] LABS: Basophils % (manual) 0 (0.0-2.0); Blast Cells 0; Eosinophils % (manual) 0 (0-7); Promyelocytes % 0; Reactive Lymphocytes 0
[2024-04-02 06:02] LABS: Alanine Aminotransferase 25 U/L (7-40); Albumin 3.4 g/dL (3.2-4.8); Alkaline Phosphatase 62 U/L (46-116); Anion Gap 7 (5-15); Aspartate Aminotransferase 23 U/L (13-40); BUN/Creatinine Ratio 22.9 (10.0-20.0); Bilirubin, Total 0.5 mg/dL (0.2-1.0); Blood Urea Nitrogen 16 mg/dL (9-23); Carbon Dioxide 30 mmol/L (20-31); Chloride 104 mmol/L (98-107); Glucose 104 mg/dL (74-106); Sodium 141 mmol/L (136-145)
[2024-04-02 06:22] LABS: Calcium 8.7 mg/dL (8.7-10.4); Potassium 3.3 mmol/L (3.5-5.1); Total Protein 5.4 g/dL (5.7-8.2)
[2024-04-02 06:51] LABS: Band Neutrophils % (manual) 1; Lymphocytes % (manual) 9 (10.0-50.0); Metamyelocytes % 1; Monocytes % (manual) 3 (0-12); Myelocytes % 1; Platelet Estimate Adequate
[2024-04-02] MEDS: LORazepam 0.5 MG TAB PO PRN (10:08)
[2024-04-02] MEDS: LACTULOSE 20Gm/30ML SOLN PO ONE (10:08)
[2024-04-02] MEDS: POTASSIUM EFFERVESENT TAB 25 MEQ PO SCH (10:09)
[2024-04-02 14:37] LABS: Base Excess 6.2 mmol/L (-2.0-3.0)
--- NOTE | 2024-04-02 17:56 | DVHPNRES ---
Progress Note Date Seen: Apr 02, 2024 Resident Creating Document: KRISTOFER CHAVES RESIDENT Has the PT tested + for MRSA If YES, has PT been informed?: No Medical Necessity Reason Pt with a Central, PICC or Fol: Yes The following are medically ne: Carreno Catheter Reason for carreno catheter: Strict I&O Subjective Review of Systems This is a 59-year-old female past medical history of hypothyroidism, hypertension, dyslipidemia and kidney stone came to the hospital With a chief complaint of shortness of breath for 2 days prior to this admission. the patient stated that she has she had fever, flu-like symptoms 5 days ago went to the urgent care and advised her to take doxycycline drink and vitamin-D but her symptoms progressively getting worse that prompted this visit. She also mentioned for last 2 days shortness of breath getting worse and was not able to go to washroom felt gasping of air, saturation was 84% associated with cough and greenish to brownish sputum. Patient was admitted for further assessment and management. Patient seen and examined at bedside. The patient is alert and oriented in person, place and time. The patient is currently on high-flow nasal cannula at 50L of oxygen with an FiO2 of 70% saturating 92%. We will continue IV Zosyn, started , IV vancomycin as per pharmacy and BiPAP at night. [facility] on board. Chest xray on 04/01/24 demonstrated Bilateral peripheral interstitial infiltrates are stable and may be due to atypical pneumonia or chronic interstitial pulmonary fibrosis. Objective vital signs Vital Sign Date Time Temp Pulse Resp B/P (MAP) Pulse Ox O2 Delivery O2 Flow Rate FiO2 04/02/24 17:00 72 20 116/52 (73) 92 04/02/24 16:30 Hi-Flow Heated NC+ 50 70 70 04/02/24 16:00 98.9 98.9 Total Intake and Output 04/01/24 04/01/24 04/02/24 15:00 23:00 07:00 Intake Total 50 ml 1075 ml 320 ml Output Total 1000 ml 800 ml Balance 50 ml 75 ml -480 ml medications Current Medications Medications Dose Ordered Sig/Saturnino Route Start Time Stop Time Status Last Admin Dose Admin Nitroglycerin 0.4 mg Q5MINP PRN SL 03/23/24 22:45 Acetaminophen 650 mg Q4HP PRN PO 03/24/24 00:00 03/26/24 01:55 650 MG Enoxaparin Sodium 40 mg DAILY SC 03/25/24 10:00 04/02/24 10:10 40 MG Doxycycline Hyclate 100 ml @ 50 mls/hr Q12H IV 03/24/24 01:00 04/02/24 12:58 50 MLS/HR Ipratropium [place] 0.5 mg Q4HWA [facility] 03/24/24 06:00 04/02/24 14:18 0.5 MG Albuterol 2.5 mg Q4HWA NEB 03/24/24 06:00 04/02/24 14:18 2.5 MG Levothyroxine Sodium 75 mcg QAM@0600 PO 03/24/24 06:00 04/02/24 04:56 75 MCG Atorvastatin Calcium 40 mg HS PO 03/25/24 22:00 04/01/24 21:30 40 MG Acetaminophen/ Hydrocodone Bitart 1 tab Q6HPRN PRN PO 03/24/24 16:45 03/29/24 18:47 1 TAB Melatonin 5 mg HS PO 03/25/24 22:00 04/01/24 21:30 5 MG Piperacillin Sod/ Tazobactam Sod 100 ml @ 25 mls/hr Q8HR IV 03/26/24 16:00 04/02/24 17:00 25 MLS/HR Pantoprazole Sodium 40 mg DAILY IV 03/27/24 10:00 04/02/24 10:09 40 MG Patient Own Medication 1 DAILY PO 03/30/24 10:00 UNV Patient Own Medication 1 DAILY PO 03/29/24 17:00 04/02/24 10:10 1 Acetylcysteine 100 mg Q4HWA [facility] 03/30/24 18:00 04/02/24 14:18 100 MG Methylprednisolone Sodium Succinate 20 mg DAILY IV 04/01/24 07:45 04/02/24 10:08 20 MG Potassium Bicarbonate 50 meq DAILY PO 04/02/24 10:00 04/02/24 10:09 50 MEQ Lorazepam 0.5 mg Q6HP PRN PO 04/02/24 09:30 04/02/24 10:08 0.5 MG Examination Physical examination: General Appearance: Alert, Oriented X3, Cooperative, No acute distress HEENT: Atraumatic, PERRLA, EOMI, Mucous membrane moist/pink Respiratory: bilateral crackles more on the Rt side , no wheezing. Cardiovascular: Regular rate, Normal S1, Normal S2, No murmurs, no chest wall tenderness Abdominal: Normal bowel sounds, Soft, No tenderness, No hepatospenomegaly, No masses Extremities: No clubbing, No cyanosis, No edema, Normal pulses, No tenderness/swelling Skin: No rashes, No breakdown, No significant lesion Neuro: Normal gait, Normal speech, Strength at 5/5 X4 ext, Normal tone, Sensation intact, grossly intact cranial nerves Psych/Mental Status: Mental status NL, Mood NL laboratory and microbiology Laboratory Tests 04/02/24 04:53 Test 04/02/24 04:53 Range/Units Serum Glucose 104 74-106 mg/dL Microbiology Date/Time Source Procedure Growth Status 03/30/24 00:00 Sputum Gram Stain - Final Resulted 03/30/24 00:00 Sputum Respiratory Culture - Preliminary Resulted 03/26/24 09:29 Nose MRSA Screen - Final Complete 03/23/24 15:56 Blood Blood Culture - Final NO GROWTH AFTER 5 DAYS OF INCUBATION. Complete Labs and/or images reviewed: Image(s) reviewed by me Problem List/Assessment/Plan Problem List/Assessment/Plan Assessment/Plan Acute hypoxic respiratory failure, likely due to gram positive/ gram negative pneumonia Possible SIRS/ Sepsis, secondary to pneumonia as above Possible multifocal pneumonia Possible COPD exacerbation Ruled out PCP Pneumonia Ruled out Pulmonary embolism - Chest x-ray shows bilateral lower zone infiltration - Chest CTA showed, airspace disease in the posterior costophrenic angles bilaterally, no pulmonary emboli. - Covid/ Flu negative , Blood cultures came back negative. - IV Zosyn 3.375 mg Q8hr - Started IV vancomycin per pharmacy - IV Methylprednisolone 20 mg IV daily. - Bipap at night -Mucomyst -sputum culture growing Gram-negative rods and Gram-positive cocci in pairs. Oropharyngeal priya with yeast. -HIV test came back negative -Rheumatoid factor and STEPHON are negative - Duoneb with albuterol and ipratropium q.4 hours - Incentive spirometry. -Echo revealed EF 55% with normal RV function. History of hypothyroidism -Continue levothyroxine 75 mcg q.a.m. Dyslipidemia -Continue atorvastatin 40 mg at HS Prediabetic, hemoglobin A1c 5.8 - Counseled patient regarding low carb diet, lifestyle modification and physical exercise Goals of care discussed with the patient at bedside for > 20min, FULL CODE Plan discussed with Dr. Cordova Plan discussed with: Patient, Other My Orders My Orders Orders - KRISTOFER CHAVES Procedure Category Date Status Time Lorazepam Tablet PHA 04/02/24 In Process (Ativan Tablet) 09:30 Date of Service: Apr 02, 2024 Billing Provider: AMY WRIGHT MD Common Visit Codes: [id number] CARE-EACH +30MIN KRISTOFER CHAVES Apr 02, 2024 17:56 AMY WRIGHT MD Apr 04, 2024 00:25
[2024-04-02] MEDS ORDERED: VANCOMYCIN PER PHARMACY 0 MG IV SCH (18:15)
[2024-04-02] MEDS: VANCOMYCIN 1GM/250ML KIT 250 ML IV SCH (20:49)
--- NOTE | 2024-04-02 22:26 | DVHPN2 ---
Progress Note - Dictate Date Seen: Apr 02, 2024 Has the PT tested + for MRSA If YES, has PT been informed?: No Medical Necessity Reason Pt with a Central, PICC or Fol: Yes The following are medically ne: Carreno Catheter Reason for carreno catheter: Strict I&O Subjective Patient seen and examined at bedside. Remains on supplemental oxygen Overnight events reviewed. vital signs Vital Sign Date Time Temp Pulse Resp B/P (MAP) Pulse Ox O2 Delivery O2 Flow Rate FiO2 04/02/24 20:00 98.9 89 16 126/78 (94) 87 98.9 04/02/24 18:59 40.0 70 04/02/24 16:30 Hi-Flow Heated NC+ Total Intake and Output 04/01/24 04/01/24 04/02/24 15:00 23:00 07:00 Intake Total 50 ml 1075 ml 320 ml Output Total 1000 ml 800 ml Balance 50 ml 75 ml -480 ml medications Current Medications Medications Dose Ordered Sig/Saturnino Route Start Time Stop Time Status Last Admin Dose Admin Nitroglycerin 0.4 mg Q5MINP PRN SL 03/23/24 22:45 Acetaminophen 650 mg Q4HP PRN PO 03/24/24 00:00 03/26/24 01:55 650 MG Enoxaparin Sodium 40 mg DAILY SC 03/25/24 10:00 04/02/24 10:10 40 MG Ipratropium [place] 0.5 mg Q4HWA [facility] 03/24/24 06:00 04/02/24 18:59 0.5 MG Albuterol 2.5 mg Q4HWA NEB 03/24/24 06:00 04/02/24 18:58 2.5 MG Levothyroxine Sodium 75 mcg QAM@0600 PO 03/24/24 06:00 04/02/24 04:56 75 MCG Atorvastatin Calcium 40 mg HS PO 03/25/24 22:00 04/02/24 20:55 40 MG Melatonin 5 mg HS PO 03/25/24 22:00 04/02/24 20:55 5 MG Piperacillin Sod/ Tazobactam Sod 100 ml @ 25 mls/hr Q8HR IV 03/26/24 16:00 04/02/24 17:00 25 MLS/HR Pantoprazole Sodium 40 mg DAILY IV 03/27/24 10:00 04/02/24 10:09 40 MG Patient Own Medication 1 DAILY PO 03/30/24 10:00 UNV Patient Own Medication 1 DAILY PO 03/29/24 17:00 04/02/24 10:10 1 Acetylcysteine 100 mg Q4HWA NEB 03/30/24 18:00 04/02/24 18:59 100 MG Methylprednisolone Sodium Succinate 20 mg DAILY IV 04/01/24 07:45 04/02/24 10:08 20 MG Potassium Bicarbonate 50 meq DAILY PO 04/02/24 10:00 04/02/24 10:09 50 MEQ Lorazepam 0.5 mg Q6HP PRN PO 04/02/24 09:30 04/02/24 22:14 0.5 MG Vancomycin HCl 0 ml @ 0 mls/hr UD IV 04/02/24 18:15 Vancomycin HCl 250 ml @ 250 mls/hr Q12H IV 04/02/24 19:00 04/02/24 20:49 250 MLS/HR objective Gen.: Patient lying in bed in no apparent distress. On supplemental oxygen. Head: Normocephalic, atraumatic. Eyes: EOMI/PERRLA. Ears: Normal hearing. Normal anatomy. Neck/trachea: Trachea midline, supple. Nose: Normal external anatomy. Mouth: Moist mucous membranes. Chest: Decreased air entry bilaterally. No wheezing or rhonchi. Cardiovascular: Positive S1, positive S2. Regular rate and rhythm. Abdomen: Positive bowel sounds in all 4 quadrants. Soft, non-tender, non- distended. : Deferred. Rectal: Deferred. Skin: Warm, dry. Intact. Extremities: 2+ radial pulses bilaterally. No lower extremity edema. Neuro: Awake, alert, oriented x3. No gross motor or sensory deficits. Cranial nerves II through XII intact. Gait not assessed. laboratory and microbiology Laboratory Tests 04/02/24 04:53 Test 04/02/24 04:53 Range/Units Serum Glucose 104 74-106 mg/dL Assessment/Plan Impression: Acute hypoxic respiratory failure Acute respiratory distress syndrome Multifocal pneumonia Hx of nicotine dependence Obesity BMI 33.4 Atelectasis Events: Remains on supplemental oxygen High flow O2 with flow rate 35 -->40 LPM, FiO2 60 -->70% Taper FiO2 as tolerated Increased O2 requirements Prone as tolerated. ABG notable for severe alkalemia Continue IV steroids Continue antibiotics Continue bronchodilators Incentive spirometry Diurese to euvolemia w/ Lasix Monitor renal function. Monitor electrolytes. Supplement as necessary. Monitor K, Mg Labs and imaging reviewed. Rest of plan as noted below. Plan: CTA reviewed, no e/o pulmonary embolism. Multifocal airspace opacities. BiPAP alternating with high flow oxygen Recommend proning or laying on side. Titrate to keep O2 sats above 92%. Continue bronchodilators. Continue antibiotics - Zosyn IV steroids Pain control Avoid oversedation Maintain euvolemia Monitor renal function. Monitor electrolytes. Supplement as necessary. Monitor ins and outs. DVT prophylaxis. Prognosis: Poor given patient's multiple co-morbidities. Rest of plan per hospitalist and other consultants. Thank you, Dr. Alcazar, for allowing me to participate in this patient's care. Further recommendations will depend on the patient's clinical course. Please do not hesitate to contact me if you have any questions or concerns. This medical document was created using an electronic medical record system with Scripped dictation system. Although these documentations are being carefully reviewed, there may still be some phonetic and typographical changes. The errors are purely typographical, due to imperfection on the software program, and do not reflect any compromise in the patient's medical care. Plan discussed with: Other (NURIA Delatorre) DENA DRAPER MD Apr 02, 2024 22:26
[2024-04-03] VITALS (30 sets, daily range): BP systolic 101–127; BP diastolic 49–78; PULSE 60–94; RESP 11–29; TEMP 98.3–100.4; O2SAT 88–98
[2024-04-03 05:22] LABS: Basophils # (auto) 0 10 ^3/uL (0-0.2); Basophils % (auto) 0.3 % (0.0-2.0); Eosinophils # (auto) 0.3 10 ^3/uL (0-0.8); Eosinophils % (auto) 2.3 % (0.0-7.0); Hematocrit 32.2 % (36.0-46.0); Hemoglobin 10.7 g/dL (12.2-16.2); Lymphocytes # (auto) 0.9 10 ^3/uL (0.4-5.4); Lymphocytes % (auto) 5.9 % (10.0-50.0); Mean Corpuscular Hemoglobin 29.7 pg (28.0-32.0); Mean Corpuscular Hgb Conc. 33.3 g/dL (32.0-36.0); Mean Corpuscular Volume 89.3 fL (80.0-100.0); Monocytes # (auto) 0.4 10 ^3/uL (0-1.3); Monocytes % (auto) 2.8 % (0.0-12.0); Neutrophils % (auto) 88.7 % (37.0-80.0); Nucleated Red Blood Cells % 0.1 %; Platelet Count (auto) 314 10^3/uL (140-450); Red Cell Distribution Width 14.5 % (11.8-14.3); White Blood Cell 14.6 10^3/uL (4.4-10.8)
[2024-04-03 05:28] LABS: Anion Gap 7 (5-15); Carbon Dioxide 30 mmol/L (20-31); Chloride 103 mmol/L (98-107); Potassium 3.7 mmol/L (3.5-5.1); Sodium 140 mmol/L (136-145)
[2024-04-03 05:29] LABS: Calcium 8.9 mg/dL (8.7-10.4)
[2024-04-03 05:34] LABS: BUN/Creatinine Ratio 20.3 (10.0-20.0); Blood Urea Nitrogen 13 mg/dL (9-23); Glucose 100 mg/dL (74-106)
--- NOTE | 2024-04-03 08:52 | DVHPNRES ---
Progress Note Date Seen: Apr 03, 2024 Resident Creating Document: MATEO MARTINS RESIDENT Has the PT tested + for MRSA If YES, has PT been informed?: No Medical Necessity Reason Pt with a Central, PICC or Fol: Yes The following are medically ne: Carreno Catheter Reason for carreno catheter: Strict I&O Subjective Review of Systems pt seen and examined at bedside currently on HFNC mentions she had covid before presenting to the hospital also mentions travelling to [place] before presenting to the hospital Objective vital signs Vital Sign Date Time Temp Pulse Resp B/P (MAP) Pulse Ox O2 Delivery O2 Flow Rate FiO2 04/03/24 06:27 76 18 92 40.0 70 04/03/24 06:00 99.1 121/78 (92) 99.1 04/03/24 04:00 Hi-Flow Heated NC+ Total Intake and Output 04/02/24 04/02/24 04/03/24 15:00 23:00 07:00 Intake Total 275 ml 340 ml Output Total 1625 ml 1125 ml Balance -1350 ml -785 ml medications Current Medications Medications Dose Ordered Sig/Saturn[place] Route Start Time Stop Time Status Last Admin Dose Admin Nitroglycerin 0.4 mg Q5MINP PRN SL 03/23/24 22:45 Acetaminophen 650 mg Q4HP PRN PO 03/24/24 00:00 03/26/24 01:55 650 MG Enoxaparin Sodium 40 mg DAILY SC 03/25/24 10:00 04/02/24 10:10 40 MG Ipratropium [place] 0.5 mg Q4HWA [facility] 03/24/24 06:00 04/03/24 06:26 0.5 MG Albuterol 2.5 mg Q4HWA [facility] 03/24/24 06:00 04/03/24 06:26 2.5 MG Levothyroxine Sodium 75 mcg QAM@0600 PO 03/24/24 06:00 04/03/24 05:56 75 MCG Atorvastatin Calcium 40 mg HS PO 03/25/24 22:00 04/02/24 20:55 40 MG Melatonin 5 mg HS PO 03/25/24 22:00 04/02/24 20:55 5 MG Piperacillin Sod/ Tazobactam Sod 100 ml @ 25 mls/hr Q8HR IV 03/26/24 16:00 04/03/24 05:57 25 MLS/HR Pantoprazole Sodium 40 mg DAILY IV 03/27/24 10:00 04/02/24 10:09 40 MG Patient Own Medication 1 DAILY PO 03/30/24 10:00 UNV Patient Own Medication 1 DAILY PO 03/29/24 17:00 04/02/24 10:10 1 Acetylcysteine 100 mg Q4HWA NEB 03/30/24 18:00 04/03/24 06:26 100 MG Methylprednisolone Sodium Succinate 20 mg DAILY IV 04/01/24 07:45 04/02/24 10:08 20 MG Potassium Bicarbonate 50 meq DAILY PO 04/02/24 10:00 04/02/24 10:09 50 MEQ Lorazepam 0.5 mg Q6HP PRN PO 04/02/24 09:30 04/02/24 22:14 0.5 MG Vancomycin HCl 0 ml @ 0 mls/hr UD IV 04/02/24 18:15 Vancomycin HCl 250 ml @ 250 mls/hr Q12H IV 04/02/24 19:00 04/02/24 20:49 250 MLS/HR Examination Physical examination: General Appearance: Alert, Oriented X3, Cooperative, No acute distress HEENT: Atraumatic, PERRLA, EOMI, Mucous membrane moist/pink Respiratory: bilateral crackles more on the Rt side , no wheezing. Cardiovascular: Regular rate, Normal S1, Normal S2, No murmurs, no chest wall tenderness Abdominal: Normal bowel sounds, Soft, No tenderness, No hepatospenomegaly, No masses Extremities: No clubbing, No cyanosis, No edema, Normal pulses, No tenderness/swelling Skin: No rashes, No breakdown, No significant lesion Neuro: Normal gait, Normal speech, Strength at 5/5 X4 ext, Normal tone, Sensation intact, grossly intact cranial nerves Psych/Mental Status: Mental status NL, Mood NL laboratory and microbiology Laboratory Tests 04/03/24 04:52 Test 04/03/24 04:52 Range/Units Serum Glucose 100 74-106 mg/dL Microbiology Date/Time Source Procedure Growth Status 03/30/24 00:00 Sputum Gram Stain - Final Resulted 03/30/24 00:00 Sputum Respiratory Culture - Preliminary Resulted 03/26/24 09:29 Nose MRSA Screen - Final Complete 03/23/24 15:56 Blood Blood Culture - Final NO GROWTH AFTER 5 DAYS OF INCUBATION. Complete Labs and/or images reviewed: Labs reviewed by me, Image(s) reviewed by me Problem List/Assessment/Plan Problem List/Assessment/Plan Assessment/plan Neurology Cardiology #hypertension -currently normal BP Respiratory #Acute hypoxic Resp failure due to Pneumonia -currently on HFNC -was on BiPAP #Community acquired pneumonia , likely viral/atypical pneumonia based on CT findings, overlapping bacterial pneumonia not ruled out yet -IV vanc plus IV Zosyn plus IV Azithromycin -Covid RT PCR -h1n1 -ESR, CPR -dexamethasone -legionella/mycoplasma ag ordered -coccidioides Nephrology #Bilateral nonobstructive nephrolithiasis -seen on imaging Endocrine #Prediabetes -monitor BMP #Hypothyroidism -continue levothyroxine GI Musculoskeletal #Chronic pain -resume home Meds Infectious Disease #Sepsis likely due to pneumonia -panculture -IV antibiotics, Vanco plus Zosyn plus Azithro hematology #Mild anemia -monitor #elevated d-dimer -ruled out PE and DVT Psychiatry #Anxiety -Ativan -citalopram DVT Prophylaxis Lovenox PUD prophylaxis IV Protonix Code status discussed with the patient for >21 min, FULL CODE Critical care time excluding procedures 57 minutes Family at bedside updated about the condition Case discussion with Dr Estrada Plan discussed with: Other Date of Service: Apr 04, 2024 Billing Provider: LISA ESTRADA MD Common Visit Codes: [id number] CARE 30-74 MIN MATEO MARTINS Apr 03, 2024 08:52 LISA ESTRADA MD Apr 04, 2024 17:02
[2024-04-03 09:43] LABS: Base Excess 3.8 mmol/L (-2.0-3.0)
[2024-04-03 13:34] LABS: Base Excess 3.1 mmol/L (-2.0-3.0)
[2024-04-03] MEDS: HYDROcodone-ACET 5/325MG TAB PO PRN (17:28)
[2024-04-03] MEDS: DexAMETHasone SOD PHOS 10MG/1ML VIAL INJ IV ONE (17:28)
[2024-04-03] MEDS: AZITHROMYCIN 500MG/ 250ML 250 ML IV SCH (17:30)
[2024-04-04] VITALS (31 sets, daily range): BP systolic 85–149; BP diastolic 28–87; PULSE 53–131; RESP 12–30; TEMP 97.4–99.2; O2SAT 79–98
[2024-04-04 06:43] LABS: Hematocrit 32.3 % (36.0-46.0); Hemoglobin 11.1 g/dL (12.2-16.2); Mean Corpuscular Hemoglobin 30.6 pg (28.0-32.0); Mean Corpuscular Hgb Conc. 34.2 g/dL (32.0-36.0); Mean Corpuscular Volume 89.5 fL (80.0-100.0); Platelet Count (auto) 276 10^3/uL (140-450); Red Blood Cells 3.61 10^6/uL (4.0-5.20); Red Cell Distribution Width 14.5 % (11.8-14.3); White Blood Cell 12.4 10^3/uL (4.4-10.8)
[2024-04-04 06:52] LABS: Anion Gap 6 (5-15); Chloride 102 mmol/L (98-107); Potassium 4.3 mmol/L (3.5-5.1); Sodium 139 mmol/L (136-145)
[2024-04-04 06:58] LABS: BUN/Creatinine Ratio 18.3 (10.0-20.0); Blood Urea Nitrogen 11 mg/dL (9-23)
[2024-04-04 06:59] LABS: Magnesium 2.4 mg/dL (1.6-2.6)
[2024-04-04 07:03] LABS: Carbon Dioxide 31 mmol/L (20-31); Glucose 143 mg/dL (74-106)
[2024-04-04 07:12] LABS: Band Neutrophils % (manual) 0; Basophils % (manual) 0 (0.0-2.0); Blast Cells 0; Eosinophils % (manual) 0 (0-7); Lymphocytes % (manual) 0 (10.0-50.0); Metamyelocytes % 0; Myelocytes % 0; Promyelocytes % 0; Reactive Lymphocytes 0
[2024-04-04 07:15] LABS: CRP High Sensitivity 10.56 mg/dL (<1.0)
[2024-04-04 09:05] LABS: Erythrocyte Sedimentation Rate 48 mm/hr (0-20)
[2024-04-04] MEDS: CITALOPRAM HYDROBR 20 MG TAB PO SCH (09:18)
[2024-04-04] MEDS: DexAMETHasone SOD PHOS 10MG/1ML VIAL INJ IV SCH (09:19)
[2024-04-04 10:47] LABS: Base Excess 2.7 mmol/L (-2.0-3.0)
[2024-04-04 10:51] LABS: Monocytes % (manual) 3 (0-12); Platelet Estimate Adequate
[2024-04-04] MEDS: VANCOMYCIN 1GM/250ML KIT 250 ML IV SCH (19:10)
--- NOTE | 2024-04-04 20:21 | DVHPNRES ---
Progress Note Date Seen: Apr 04, 2024 Resident Creating Document: MATEO MARTINS RESIDENT Has the PT tested + for MRSA If YES, has PT been informed?: No Medical Necessity Reason Pt with a Central, PICC or Fol: Yes The following are medically ne: Carreno Catheter Reason for carreno catheter: Strict I&O Subjective Review of Systems pt seen and examined at bedside mentions improvement in the symptoms still on HFNC 60% FiO2 and 60 L flow Objective vital signs Vital Sign Date Time Temp Pulse Resp B/P (MAP) Pulse Ox O2 Delivery O2 Flow Rate FiO2 04/04/24 19:00 68 17 102/28 (52) 95 04/04/24 18:59 45.0 50 04/04/24 16:00 99.2 99.2 04/04/24 16:00 Hi-Flow Heated NC+ Total Intake and Output 04/03/24 04/03/24 04/04/24 15:00 23:00 07:00 Intake Total 300 ml 625 ml 100 ml Output Total 1200 ml 1000 ml Balance 300 ml -575 ml -900 ml medications Current Medications Medications Dose Ordered Sig/[place] Route Start Time Stop Time Status Last Admin Dose Admin Acetaminophen 650 mg Q4HP PRN PO 03/24/24 00:00 04/03/24 16:21 650 MG Enoxaparin Sodium 40 mg DAILY SC 03/25/24 10:00 04/04/24 08:58 40 MG Ipratropium [place] 0.5 mg Q4HWA NEB 03/24/24 06:00 04/04/24 18:59 0.5 MG Albuterol 2.5 mg Q4HWA [facility] 03/24/24 06:00 04/04/24 18:59 2.5 MG Levothyroxine Sodium 75 mcg QAM@0600 PO 03/24/24 06:00 04/04/24 05:48 75 MCG Melatonin 5 mg HS PO 03/25/24 22:00 04/03/24 22:04 5 MG Piperacillin Sod/ Tazobactam Sod 100 ml @ 25 mls/hr Q8HR IV 03/26/24 16:00 04/04/24 14:00 25 MLS/HR Pantoprazole Sodium 40 mg DAILY IV 03/27/24 10:00 04/04/24 08:57 40 MG Patient Own Medication 1 DAILY PO 03/30/24 10:00 UNV Lorazepam 0.5 mg Q6HP PRN PO 04/02/24 09:30 04/03/24 22:04 0.5 MG Vancomycin HCl 0 ml @ 0 mls/hr UD IV 04/02/24 18:15 Azithromycin 250 ml @ 125 mls/hr DAILY IV 04/03/24 10:00 04/04/24 10:00 125 MLS/HR Citalopram Hydrobromide 20 mg DAILY PO 04/04/24 10:00 04/04/24 09:18 20 MG Dexamethasone Sodium Phosphate 6 mg DAILY IV 04/04/24 10:00 04/04/24 09:19 6 MG Acetaminophen/ Hydrocodone Bitart 1 tab Q6HPRN PRN PO 04/03/24 17:00 04/03/24 17:28 1 TAB Vancomycin HCl 250 ml @ 250 mls/hr Q10H IV 04/04/24 19:00 04/04/24 19:10 250 MLS/HR Examination Physical examination: General Appearance: Alert, Oriented X3, Cooperative, No acute distress HEENT: Atraumatic, PERRLA, EOMI, Mucous membrane moist/pink Respiratory: bilateral crackles more on the Rt side , no wheezing. Cardiovascular: Regular rate, Normal S1, Normal S2, No murmurs, no chest wall tenderness Abdominal: Normal bowel sounds, Soft, No tenderness, No hepatospenomegaly, No masses Extremities: No clubbing, No cyanosis, No edema, Normal pulses, No tenderness/swelling Skin: No rashes, No breakdown, No significant lesion Neuro: Normal gait, Normal speech, Strength at 5/5 X4 ext, Normal tone, Sensation intact, grossly intact cranial nerves Psych/Mental Status: Mental status NL, Mood NL laboratory and microbiology Laboratory Tests 04/04/24 06:18 Test 04/04/24 06:18 Range/Units Serum Glucose 143 H 74-106 mg/dL Microbiology Date/Time Source Procedure Growth Status 04/03/24 18:00 Nasopharynx Coronavirus COVID-19 PCR ([facility]) - Final Complete 03/26/24 09:29 Nose MRSA Screen - Final Complete 03/23/24 15:56 Blood Blood Culture - Final NO GROWTH AFTER 5 DAYS OF INCUBATION. Complete Problem List/Assessment/Plan Problem List/Assessment/Plan Assessment/plan Neurology Cardiology #hypertension -currently normal BP Respiratory #Acute hypoxic Resp failure due to Pneumonia -currently on HFNC -was on BiPAP #Community acquired pneumonia , likely viral/atypical pneumonia based on CT findings, overlapping bacterial pneumonia not ruled out yet -IV vanc plus IV Zosyn plus IV Azithromycin -Covid RT PCR -h1n1 -ESR, CPR -dexamethasone -legionella/mycoplasma ag ordered -coccidioides Nephrology #Bilateral nonobstructive nephrolithiasis -seen on imaging Endocrine #Prediabetes -monitor BMP #Hypothyroidism -continue levothyroxine GI Musculoskeletal #Chronic pain -resume home Meds Infectious Disease #Sepsis likely due to pneumonia -panculture -IV antibiotics, Vanco plus Zosyn plus Azithro hematology #Mild anemia -monitor #elevated d-dimer -ruled out PE and DVT Psychiatry #Anxiety -Ativan -citalopram DVT Prophylaxis Lovenox PUD prophylaxis IV Protonix Code status discussed with the patient for >21 min, FULL CODE Critical care time excluding procedures 57 minutes Family at bedside updated about the condition Case discussion with Dr Estrada Plan discussed with: Patient, Other My Orders My Orders Orders - MATEO MARTINS Procedure Category Date Status Time Rapid Influenza A&B LAB 04/04/24 Logged 04:00 Abg W/ Co-Ox RT 04/04/24 Logged 10:44 Dietary Evaluation Review Comments: Follow current diet Expected Outcomes/Goals: gradual wt loss Date of Service: Apr 04, 2024 Billing Provider: LISA ESTRADA MD Common Visit Codes: [id number] CARE 30-74 MIN MATEO MARTINS Apr 04, 2024 20:21 LISA ESTRADA MD Apr 05, 2024 12:50
[2024-04-04] MEDS: SALINE 0.65 % NASAL SPRAY 45ML BOTTLE EACHNOSTRI ONE (20:30)
[2024-04-04] MEDS: SALINE 0.65 % NASAL SPRAY 45ML BOTTLE EACHNOSTRI SCH (22:00)
[2024-04-04] MEDS: FLORASTOR (S. BOULARDII) 250 MG CAP PO SCH (22:04)
[2024-04-05] VITALS (33 sets, daily range): BP systolic 114–167; BP diastolic 58–91; PULSE 51–87; RESP 11–31; TEMP 97.6–98.9; O2SAT 91–99
--- NOTE | 2024-04-05 05:14 | DVH ---
EXAM: XR Chest, 1 View CLINICAL INDICATION: HFNC TECHNIQUE: Frontal view of the chest. COMPARISON: XY CHEST XRAY 1 VIEW on DOS: 04/01/24, XY CHEST XRAY 1 VIEW on DOS: 03/30/24, XY CHEST POR TABLE on DOS: 03/28/24, XY CHEST XRAY 1 VIEW on DOS: 03/27/24, XY CHEST XRAY 1 VIEW on DOS: 03/26/24 FINDINGS: LUNGS AND PLEURAL SPACES: See below. HEART: Cardiomegaly with pulmonary congestion and edema. Superimposed pneumonia cannot be excluded. MEDIASTINUM: Unremarkable. Normal mediastinal contour. BONES/JOINTS: Unremarkable. No acute fracture. OTHER FINDINGS: . . . .. IMPRESSION: Cardiomegaly with pulmonary congestion and edema. Superimposed pneumonia cannot be excluded.
[2024-04-05 05:40] LABS: Basophils # (auto) 0 10 ^3/uL (0-0.2); Basophils % (auto) 0.2 % (0.0-2.0); Eosinophils # (auto) 0.1 10 ^3/uL (0-0.8); Eosinophils % (auto) 0.7 % (0.0-7.0); Hematocrit 31.4 % (36.0-46.0); Hemoglobin 10.3 g/dL (12.2-16.2); Lymphocytes # (auto) 0.8 10 ^3/uL (0.4-5.4); Lymphocytes % (auto) 4.7 % (10.0-50.0); Mean Corpuscular Hemoglobin 29.7 pg (28.0-32.0); Mean Corpuscular Hgb Conc. 32.9 g/dL (32.0-36.0); Mean Corpuscular Volume 90.4 fL (80.0-100.0); Monocytes # (auto) 0.6 10 ^3/uL (0-1.3); Monocytes % (auto) 3.6 % (0.0-12.0); Neutrophils % (auto) 90.8 % (37.0-80.0); Platelet Count (auto) 281 10^3/uL (140-450); Red Blood Cells 3.47 10^6/uL (4.0-5.20); Red Cell Distribution Width 14.5 % (11.8-14.3); White Blood Cell 16.5 10^3/uL (4.4-10.8)
[2024-04-05 06:04] LABS: Anion Gap 5 (5-15); Chloride 103 mmol/L (98-107); Potassium 4.3 mmol/L (3.5-5.1); Sodium 140 mmol/L (136-145)
[2024-04-05 06:05] LABS: Calcium 8.9 mg/dL (8.7-10.4)
[2024-04-05 06:10] LABS: BUN/Creatinine Ratio 19.4 (10.0-20.0); Blood Urea Nitrogen 12 mg/dL (9-23); Carbon Dioxide 32 mmol/L (20-31); Glucose 146 mg/dL (74-106); Magnesium 2.4 mg/dL (1.6-2.6)
[2024-04-05 08:32] LABS: Base Excess 0.8 mmol/L (-2.0-3.0)
[2024-04-05] MEDS: FUROSEMIDE 20 MG/2 ML VIAL IV ONE (13:17)
--- NOTE | 2024-04-05 16:21 | ECG ---
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
[2024-04-05] MEDS: VANCOMYCIN 1.25GM/250ML 250 ML IV SCH (17:11)
--- NOTE | 2024-04-05 20:57 | DVHPNRES ---
Progress Note Date Seen: Apr 05, 2024 Resident Creating Document: MATEO MARTINS RESIDENT Has the PT tested + for MRSA If YES, has PT been informed?: No Medical Necessity Reason Pt with a Central, PICC or Fol: Yes The following are medically ne: Carreno Catheter Reason for carreno catheter: Strict I&O Subjective Review of Systems pt seen and examined at bedside mentions of improvement in her symptoms was on HFNC later was switched to oxymizer Objective vital signs Vital Sign Date Time Temp Pulse Resp B/P (MAP) Pulse Ox O2 Delivery O2 Flow Rate FiO2 04/05/24 20:30 65 18 95 04/05/24 20:22 Oxymizer 8 64 64 04/05/24 18:00 167/77 (107) 04/05/24 12:00 97.6 97.6 Total Intake and Output 04/04/24 04/04/24 04/05/24 15:00 23:00 07:00 Intake Total 710 ml 1145 ml 850 ml Output Total 1050 ml 1425 ml Balance 710 ml 95 ml -575 ml medications Current Medications Medications Dose Ordered Sig/Saturnino Route Start Time Stop Time Status Last Admin Dose Admin Acetaminophen 650 mg Q4HP PRN PO 03/24/24 00:00 04/03/24 16:21 650 MG Enoxaparin Sodium 40 mg DAILY SC 03/25/24 10:00 04/05/24 10:03 40 MG Ipratropium [place] 0.5 mg Q4HWA NEB 03/24/24 06:00 04/05/24 20:21 0.5 MG Albuterol 2.5 mg Q4HWA NEB 03/24/24 06:00 04/05/24 20:21 2.5 MG Levothyroxine Sodium 75 mcg QAM@0600 PO 03/24/24 06:00 04/05/24 06:02 75 MCG Melatonin 5 mg HS PO 03/25/24 22:00 04/04/24 21:41 5 MG Piperacillin Sod/ Tazobactam Sod 100 ml @ 25 mls/hr Q8HR IV 03/26/24 16:00 04/05/24 13:19 25 MLS/HR Pantoprazole Sodium 40 mg DAILY IV 03/27/24 10:00 04/05/24 10:02 40 MG Patient Own Medication 1 DAILY PO 03/30/24 10:00 UNV Lorazepam 0.5 mg Q6HP PRN PO 04/02/24 09:30 04/04/24 21:40 0.5 MG Vancomycin HCl 0 ml @ 0 mls/hr UD IV 04/02/24 18:15 Azithromycin 250 ml @ 125 mls/hr DAILY IV 04/03/24 10:00 04/05/24 10:02 125 MLS/HR Citalopram Hydrobromide 20 mg DAILY PO 04/04/24 10:00 04/05/24 10:03 20 MG Acetaminophen/ Hydrocodone Bitart 1 tab Q6HPRN PRN PO 04/03/24 17:00 04/04/24 21:41 1 TAB Sodium Chloride 1 spr QID EACHNOSTRI 04/04/24 22:00 04/05/24 17:11 1 SPR Saccharomyces Boulardii 250 mg DAILY PO 04/04/24 20:30 04/05/24 10:02 250 MG Vancomycin HCl 250 ml @ 200 mls/hr Q10H IV 04/05/24 15:00 04/05/24 17:11 200 MLS/HR Examination Physical examination: General Appearance: Alert, Oriented X3, Cooperative, No acute distress HEENT: Atraumatic, PERRLA, EOMI, Mucous membrane moist/pink Respiratory: bilateral crackles more on the Rt side , no wheezing. Cardiovascular: Regular rate, Normal S1, Normal S2, No murmurs, no chest wall tenderness Abdominal: Normal bowel sounds, Soft, No tenderness, No hepatospenomegaly, No masses Extremities: No clubbing, No cyanosis, No edema, Normal pulses, No tenderness/swelling Skin: No rashes, No breakdown, No significant lesion Neuro: Normal gait, Normal speech, Strength at 5/5 X4 ext, Normal tone, Sensation intact, grossly intact cranial nerves Psych/Mental Status: Mental status NL, Mood NL laboratory and microbiology Laboratory Tests 04/05/24 14:12 04/05/24 05:00 Test 04/05/24 05:00 Range/Units Serum Glucose 146 H 74-106 mg/dL Microbiology Date/Time Source Procedure Growth Status 04/03/24 18:00 Nasopharynx Coronavirus COVID-19 PCR ([facility]) - Final Complete 03/26/24 09:29 Nose MRSA Screen - Final Complete 03/23/24 15:56 Blood Blood Culture - Final NO GROWTH AFTER 5 DAYS OF INCUBATION. Complete Labs and/or images reviewed: Labs reviewed by me, Image(s) reviewed by me Problem List/Assessment/Plan Problem List/Assessment/Plan Assessment/plan Neurology Cardiology #hypertension -currently normal BP Respiratory #Acute hypoxic Resp failure due to Pneumonia -currently on Oxymizer -was on BiPAP #Community acquired pneumonia , likely viral/atypical pneumonia based on CT findings, overlapping bacterial pneumonia not ruled out yet -IV vanc plus IV Zosyn plus IV Azithromycin -Covid RT PCR -h1n1 -ESR, CPR -dexamethasone -legionella/mycoplasma ag ordered -coccidioides -IV lasix Nephrology #Bilateral nonobstructive nephrolithiasis -seen on imaging Endocrine #Prediabetes -monitor BMP #Hypothyroidism -continue levothyroxine GI Musculoskeletal #Chronic pain -resume home Meds Infectious Disease #Sepsis likely due to pneumonia -panculture -IV antibiotics, Vanco plus Zosyn plus Azithro hematology #Mild anemia -monitor #elevated d-dimer -ruled out PE and DVT Psychiatry #Anxiety -Ativan -citalopram DVT Prophylaxis Lovenox PUD prophylaxis IV Protonix Code status discussed with the patient for >21 min, FULL CODE Critical care time excluding procedures 53 minutes Family at bedside updated about the condition Case discussion with Dr Estrada Plan discussed with: Patient, Other My Orders My Orders Orders - MATEO MARTINS Procedure Category Date Status Time Electrocardigram EKG 04/05/24 Resulted 14:52 Basic Metabolic Panel LAB 04/05/24 Logged 20:51 Magnesium LAB 04/05/24 Logged 20:51 Dietary Evaluation Review Comments: Follow current diet Expected Outcomes/Goals: gradual wt loss Date of Service: Apr 05, 2024 Billing Provider: LISA ESTRADA MD Common Visit Codes: [id number] CARE 30-74 MIN MATEO MARTINS Apr 05, 2024 20:57 LISA ESTRADA MD Apr 08, 2024 13:06
[2024-04-05 22:37] LABS: Chloride 103 mmol/L (98-107); Sodium 138 mmol/L (136-145)
[2024-04-05 22:38] LABS: Anion Gap 6 (5-15); Calcium 8.8 mg/dL (8.7-10.4); Carbon Dioxide 29 mmol/L (20-31)
[2024-04-05 22:43] LABS: BUN/Creatinine Ratio 18.3 (10.0-20.0); Blood Urea Nitrogen 13 mg/dL (9-23)
[2024-04-05 22:44] LABS: Magnesium 2.2 mg/dL (1.6-2.6)
[2024-04-05 22:49] LABS: Glucose 152 mg/dL (74-106)
[2024-04-06] VITALS (39 sets, daily range): BP systolic 94–163; BP diastolic 51–83; PULSE 49–93; RESP 11–24; TEMP 97.8–99.3; O2SAT 90–99
[2024-04-06 05:35] LABS: Basophils # (auto) 0 10 ^3/uL (0-0.2); Basophils % (auto) 0.2 % (0.0-2.0); Eosinophils # (auto) 0.1 10 ^3/uL (0-0.8); Eosinophils % (auto) 0.9 % (0.0-7.0); Hematocrit 30.8 % (36.0-46.0); Hemoglobin 10.2 g/dL (12.2-16.2); Lymphocytes # (auto) 0.9 10 ^3/uL (0.4-5.4); Lymphocytes % (auto) 7.4 % (10.0-50.0); Mean Corpuscular Hemoglobin 29.9 pg (28.0-32.0); Mean Corpuscular Hgb Conc. 33.1 g/dL (32.0-36.0); Mean Corpuscular Volume 90.3 fL (80.0-100.0); Monocytes % (auto) 8.2 % (0.0-12.0); Neutrophils % (auto) 83.3 % (37.0-80.0); Platelet Count (auto) 259 10^3/uL (140-450); Red Blood Cells 3.41 10^6/uL (4.0-5.20); Red Cell Distribution Width 14.9 % (11.8-14.3)
--- NOTE | 2024-04-06 05:40 | DVH ---
EXAM: XR Chest, 1 View CLINICAL INDICATION: sob TECHNIQUE: Frontal view of the chest. COMPARISON: XY CHEST PORTABLE on DOS: 04/05/24, XY CHEST XRAY 1 VIEW on DOS: 04/01/24, XY CHEST XRAY 1 VIEW on DOS: 03/30/24, XY CHEST PORTABLE on DOS: 03/28/24, XY CHEST XRAY 1 VIEW on DOS: 03/27/24 FINDINGS: LUNGS AND PLEURAL SPACES: See below. HEART: Cardiomegaly with mild congestion. MEDIASTINUM: Unremarkable. Normal mediastinal contour. BONES/JOINTS: Unremarkable. No acute fracture. OTHER FINDINGS: . None. . .. IMPRESSION: Cardiomegaly with mild congestion.
[2024-04-06 05:44] LABS: Chloride 104 mmol/L (98-107); Sodium 138 mmol/L (136-145)
[2024-04-06 05:45] LABS: Anion Gap 5 (5-15); Calcium 8.8 mg/dL (8.7-10.4); Carbon Dioxide 29 mmol/L (20-31)
[2024-04-06 05:50] LABS: BUN/Creatinine Ratio 25.4 (10.0-20.0); Blood Urea Nitrogen 15 mg/dL (9-23)
[2024-04-06 05:51] LABS: Glucose 108 mg/dL (74-106); Magnesium 2.3 mg/dL (1.6-2.6)
[2024-04-06 08:14] LABS: Base Excess 2.9 mmol/L (-2.0-3.0)
[2024-04-06] MEDS: FUROSEMIDE 20 MG/2 ML VIAL IV ONE (10:15)
[2024-04-06 16:06] LABS: Legionella pneumophila Abs Non Reactive (Non Reactive)
--- NOTE | 2024-04-06 20:52 | DVHPNRES ---
Progress Note Date Seen: Apr 06, 2024 Resident Creating Document: MATEO MARTINS RESIDENT Has the PT tested + for MRSA If YES, has PT been informed?: No Medical Necessity Reason Pt with a Central, PICC or Fol: Yes The following are medically ne: Carreno Catheter Reason for carreno catheter: Strict I&O Subjective Review of Systems pt seen and examined at bedside mentions of improvement in her symptoms currently on 8 Lt of oxygen through oxymizer Objective vital signs Vital Sign Date Time Temp Pulse Resp B/P (MAP) Pulse Ox O2 Delivery O2 Flow Rate FiO2 04/06/24 19:31 82 20 96 04/06/24 17:00 127/69 (88) 04/06/24 16:00 98.8 98.8 04/06/24 16:00 Oxymizer 8 N/A Total Intake and Output 04/05/24 04/05/24 04/06/24 15:00 23:00 07:00 Intake Total 250 ml 1145 ml 525 ml Output Total 1200 ml 1050 ml Balance 250 ml -55 ml -525 ml medications Current Medications Medications Dose Ordered Sig/[place] Route Start Time Stop Time Status Last Admin Dose Admin Acetaminophen 650 mg Q4HP PRN PO 03/24/24 00:00 04/03/24 16:21 650 MG Enoxaparin Sodium 40 mg DAILY SC 03/25/24 10:00 04/06/24 10:18 40 MG Ipratropium [place] 0.5 mg Q4HWA NEB 03/24/24 06:00 04/06/24 19:22 0.5 MG Albuterol 2.5 mg Q4HWA NEB 03/24/24 06:00 04/06/24 19:22 2.5 MG Levothyroxine Sodium 75 mcg QAM@0600 PO 03/24/24 06:00 04/06/24 06:13 75 MCG Melatonin 5 mg HS PO 03/25/24 22:00 04/05/24 21:35 5 MG Piperacillin Sod/ Tazobactam Sod 100 ml @ 25 mls/hr Q8HR IV 03/26/24 16:00 04/06/24 14:00 25 MLS/HR Pantoprazole Sodium 40 mg DAILY IV 03/27/24 10:00 04/06/24 10:15 40 MG Patient Own Medication 1 DAILY PO 03/30/24 10:00 UNV Lorazepam 0.5 mg Q6HP PRN PO 04/02/24 09:30 04/05/24 21:35 0.5 MG Vancomycin HCl 0 ml @ 0 mls/hr UD IV 04/02/24 18:15 Azithromycin 250 ml @ 125 mls/hr DAILY IV 04/03/24 10:00 04/06/24 10:17 125 MLS/HR Citalopram Hydrobromide 20 mg DAILY PO 04/04/24 10:00 04/06/24 10:18 20 MG Acetaminophen/ Hydrocodone Bitart 1 tab Q6HPRN PRN PO 04/03/24 17:00 04/05/24 21:36 1 TAB Sodium Chloride 1 spr QID EACHNOSTRI 04/04/24 22:00 04/06/24 18:00 1 SPR Saccharomyces Boulardii 250 mg DAILY PO 04/04/24 20:30 04/06/24 10:18 250 MG Vancomycin HCl 250 ml @ 200 mls/hr Q10H IV 04/05/24 15:00 04/06/24 10:18 200 MLS/HR Examination Physical examination: General Appearance: Alert, Oriented X3, Cooperative, No acute distress HEENT: Atraumatic, PERRLA, EOMI, Mucous membrane moist/pink Respiratory: bilateral crackles more on the Rt side , no wheezing. Cardiovascular: Regular rate, Normal S1, Normal S2, No murmurs, no chest wall tenderness Abdominal: Normal bowel sounds, Soft, No tenderness, No hepatospenomegaly, No masses Extremities: No clubbing, No cyanosis, No edema, Normal pulses, No tenderness/swelling Skin: No rashes, No breakdown, No significant lesion Neuro: Normal gait, Normal speech, Strength at 5/5 X4 ext, Normal tone, Sensation intact, grossly intact cranial nerves Psych/Mental Status: Mental status NL, Mood NL laboratory and microbiology Laboratory Tests 04/06/24 20:09 04/06/24 05:12 Test 04/06/24 05:12 Range/Units Serum Glucose 108 H 74-106 mg/dL Microbiology Date/Time Source Procedure Growth Status 04/03/24 18:00 Nasopharynx Coronavirus COVID-19 PCR ([facility]) - Final Complete 03/26/24 09:29 Nose MRSA Screen - Final Complete 03/23/24 15:56 Blood Blood Culture - Final NO GROWTH AFTER 5 DAYS OF INCUBATION. Complete Labs and/or images reviewed: Labs reviewed by me, Image(s) reviewed by me Problem List/Assessment/Plan Problem List/Assessment/Plan Assessment/plan Neurology Cardiology #hypertension -currently normal BP Respiratory #Acute hypoxic Resp failure due to Pneumonia -currently on Oxymizer -was on BiPAP #Community acquired pneumonia , likely viral/atypical pneumonia based on CT findings, overlapping bacterial pneumonia not ruled out yet -IV vanc plus IV Zosyn plus IV Azithromycin -Covid RT PCR -h1n1 -ESR, CPR -dexamethasone -legionella/mycoplasma ag ordered -coccidioides -IV lasix as needed Nephrology #Bilateral nonobstructive nephrolithiasis -seen on imaging Endocrine #Prediabetes -monitor BMP #Hypothyroidism -continue levothyroxine GI Musculoskeletal #Chronic pain -resume home Meds Infectious Disease #Sepsis likely due to pneumonia -panculture -IV antibiotics, Vanco plus Zosyn plus Azithro hematology #Mild anemia -monitor #elevated d-dimer -ruled out PE and DVT Psychiatry #Anxiety -Ativan -citalopram DVT Prophylaxis Lovenox PUD prophylaxis IV Protonix Code status discussed with the patient for >21 min, FULL CODE Critical care time excluding procedures 51 minutes Family at bedside updated about the condition Case discussion with Dr Wheeler Plan discussed with: Other My Orders My Orders Orders - MATEO MARTINS RESIDENT Procedure Category Date Status Time Chest Portable XY 04/06/24 Resulted 04:00 Abg W/ Co-Ox RT 04/06/24 Logged 04:00 Pt Request For Service PT 04/06/24 Logged 13:43 Dietary Evaluation Review Comments: Follow current diet Expected Outcomes/Goals: gradual wt loss MATEO MARTINS RESIDENT Apr 06, 2024 20:52
[2024-04-06 22:06] LABS: Mycoplasma pneumoniae IgG Ab 158 U/mL (0-99); Mycoplasma pneumoniae IgM Ab <770 U/mL (0-769)
--- NOTE | 2024-04-06 23:02 | DVHTSRES ---
Transfer Summary Transfer Summary Resident Creating Document: MATEO MARTINS RESIDENT Date of Admission Mar 23, 2024 at 22:42 Brief Hx & Hospital Course: 59-year-old female past medical history of hypothyroidism, hypertension, dyslipidemia and kidney stone came to the hospital due to shortness of breaths. Per patient, she had fever, chills and body pain 5 days back, when to urgent care, and was recommended doxycycline, zinc and vitamin-D. But her symptoms progressively worsened, and since 2 days she developed shortness of breaths and chest pain. Per patient, the patient was also told of having COVID-19 2 days back. Patient also reports cough, chills, fever and generalized body pain. Patient was started on IV fluids, D-dimer was elevated. CT angio was done, which revealed Airspace disease in the posterior costophrenic angles bilaterally.No findings of pulmonary artery hypertension. No findings of pulmonary emboli. Patient was started on IV doxycycline plus IV cefepime initially, patient was continued on home medications for her chronic conditions. Patient was initially on oxygen through nasal cannula in but later got desaturated and was upgraded to high-flow nasal cannula. Patient was switched to IV Zosyn and was started on IV steroids. Pancultures were collected. Later patient was started on IV fluconazole which was later discontinued. Later patient was started on IV vancomycin and doxycycline was discontinued. Patient was started on IV dexamethasone and IV methylprednisolone was discontinued. Patient was later downgraded to Oxymizer and she was mentioning improvement in her symptoms. At the time of transfer, patient is on 8 L of oxygen through Oxymizer. Care services will be transferred to the upcoming ICU team including Dr Jesus, Dr Vasquez and Dr Olivier. Transfer to: MATEO Lee RESIDENT Apr 06, 2024 23:02
[2024-04-07] VITALS (36 sets, daily range): BP systolic 99–129; BP diastolic 49–75; PULSE 53–91; RESP 12–27; TEMP 98.3–99.2; O2SAT 91–99
--- NOTE | 2024-04-07 05:30 | DVH ---
CHEST RADIOGRAPH Indication: SOB Technique: Single frontal view of the chest was obtained Comparison: XY CHEST PORTABLE on DOS: 04/06/24, XY CHEST PORTABLE on DOS: 04/05/24, XY CHEST XRAY 1 VIEW on DOS: 04/01/24 IMPRESSION: The heart is stable in size. Subpleural airspace opacities appear similar. No sizable effusion or pne umothorax. No significant interval change.
[2024-04-07 05:46] LABS: Hematocrit 29.4 % (36.0-46.0); Hemoglobin 9.9 g/dL (12.2-16.2); Mean Corpuscular Hemoglobin 30.6 pg (28.0-32.0); Mean Corpuscular Hgb Conc. 33.8 g/dL (32.0-36.0); Mean Corpuscular Volume 90.5 fL (80.0-100.0); Platelet Count (auto) 241 10^3/uL (140-450); Red Blood Cells 3.25 10^6/uL (4.0-5.20); Red Cell Distribution Width 14.7 % (11.8-14.3); White Blood Cell 8.5 10^3/uL (4.4-10.8)
[2024-04-07 05:56] LABS: Band Neutrophils % (manual) 0; Basophils % (manual) 0 (0.0-2.0); Blast Cells 0; Metamyelocytes % 0; Myelocytes % 0; Promyelocytes % 0; Reactive Lymphocytes 0
[2024-04-07 06:03] LABS: Alanine Aminotransferase 21 U/L (7-40); Alkaline Phosphatase 51 U/L (46-116); Anion Gap 6 (5-15); BUN/Creatinine Ratio 21.6 (10.0-20.0); Blood Urea Nitrogen 16 mg/dL (9-23); Carbon Dioxide 29 mmol/L (20-31); Chloride 104 mmol/L (98-107); Glucose 89 mg/dL (74-106); Magnesium 2.2 mg/dL (1.6-2.6); Potassium 3.7 mmol/L (3.5-5.1); Sodium 139 mmol/L (136-145)
[2024-04-07 06:04] LABS: Albumin 3.1 g/dL (3.2-4.8); Aspartate Aminotransferase 12 U/L (13-40); Bilirubin, Total 0.4 mg/dL (0.2-1.0); Calcium 8.4 mg/dL (8.7-10.4); Total Protein 5.1 g/dL (5.7-8.2)
[2024-04-07 06:30] LABS: Eosinophils % (manual) 2 (0-7); Lymphocytes % (manual) 27 (10.0-50.0); Monocytes % (manual) 4 (0-12); Platelet Estimate Adequate
--- NOTE | 2024-04-07 12:25 | DVHPN2 ---
Subjective Decreasing SOB Reviewed: Care Plan, H&P, Labs, Medications, Previous Orders, Radiology, Other (Consultation) Changes from previous H/P or p: Changes Objective Vitals Vital Signs Date Time Temp Pulse Resp B/P (MAP) Pulse Ox O2 Delivery O2 Flow Rate FiO2 04/07/24 10:02 70 23 98 04/07/24 09:52 Oxymizer 6 N/A 04/07/24 06:00 117/66 (83) 04/07/24 04:01 98.7 98.7 Intake/Output Intake and Output 04/07/24 07:00 Intake Total 2390 ml Output Total 2300 ml Balance 90 ml Intake Oral 1140 ml IV Total 1250 ml Output Urine Total 2300 ml # Bowel Movements 2 General Appearance: Alert, Oriented X3, Cooperative, mild distress HEENT: Atraumatic Lungs: Other (Decreased air entry bilateral with scattered crackles ) Cardiovascular: Regular rate, Normal S1, Normal S2 Abdomen: Normal bowel sounds, Soft, No tenderness Genitourinary: Other (Quach's) Neuro: Normal speech, Cranial nerves 3-12 NL Psych/Mental Status: Mental status NL, Mood NL Medications Current Medications Medications Dose Ordered Sig/Saturnino Route Start Time Stop Time Status Last Admin Dose Admin Acetaminophen 650 mg Q4HP PRN PO 03/24/24 00:00 04/03/24 16:21 650 MG Enoxaparin Sodium 40 mg DAILY SC 03/25/24 10:00 04/07/24 10:56 40 MG Ipratropium [place] 0.5 mg Q4HWA NEB 03/24/24 06:00 04/07/24 09:52 0.5 MG Albuterol 2.5 mg Q4HWA NEB 03/24/24 06:00 04/07/24 09:52 2.5 MG Levothyroxine Sodium 75 mcg QAM@0600 PO 03/24/24 06:00 04/07/24 05:47 75 MCG Melatonin 5 mg HS PO 03/25/24 22:00 04/06/24 21:17 5 MG Piperacillin Sod/ Tazobactam Sod 100 ml @ 25 mls/hr Q8HR IV 03/26/24 16:00 04/07/24 05:47 25 MLS/HR Pantoprazole Sodium 40 mg DAILY IV 03/27/24 10:00 04/07/24 10:55 40 MG Patient Own Medication 1 DAILY PO 03/30/24 10:00 UNV Lorazepam 0.5 mg Q6HP PRN PO 04/02/24 09:30 04/06/24 21:21 0.5 MG Vancomycin HCl 0 ml @ 0 mls/hr UD IV 04/02/24 18:15 Azithromycin 250 ml @ 125 mls/hr DAILY IV 04/03/24 10:00 04/07/24 10:00 125 MLS/HR Citalopram Hydrobromide 20 mg DAILY PO 04/04/24 10:00 04/07/24 10:55 20 MG Acetaminophen/ Hydrocodone Bitart 1 tab Q6HPRN PRN PO 04/03/24 17:00 04/06/24 21:21 1 TAB Sodium Chloride 1 spr QID EACHNOSTRI 04/04/24 22:00 04/07/24 10:57 1 SPR Saccharomyces Boulardii 250 mg DAILY PO 04/04/24 20:30 04/07/24 10:55 250 MG Vancomycin HCl 250 ml @ 200 mls/hr Q10H IV 04/05/24 15:00 04/07/24 06:45 200 MLS/HR Laboratory Results Laboratory Tests 04/07/24 05:26 Chemistry Test 04/07/24 05:26 Albumin 3.1 g/dL (3.2-4.8) L Calcium Level 8.4 mg/dL (8.7-10.4) L Magnesium Level 2.2 mg/dL (1.6-2.6) Total Protein 5.1 g/dL (5.7-8.2) L LFT Test 04/07/24 05:26 Alanine Aminotransferase (ALT) 21 U/L (7-40) Alkaline Phosphatase 51 U/L (46-116) Aspartate Amino Transferase (AST) 12 U/L (13-40) L Total Bilirubin 0.4 mg/dL (0.2-1.0) Urinalysis Test 03/23/24 20:55 03/24/24 16:54 Urine Test Negative (Negative) Urine Color Light-yellow (Yellow) Urine Clarity Clear (Clear) Urine pH 6.5 (5.0-9.0) Urine Specific [place] 1.013 (1.001-1.035) Urine Protein Trace (Negative) H Urine Ketones Negative (Negative) Urine Blood Negative /uL (Negative) Urine Nitrite Negative (Negative) Urine Bilirubin Negative (Negative) Urine Urobilinogen Normal mg/dL (Negative) Urine Leukocyte Esterase Negative /uL (Negative) Urine RBC 1 /hpf (0 - 4) Urine Microscopic WBC 1 /HPF (0-5) Urine Squamous Epithelial Cells Few /hpf (<5) Urine Bacteria None seen /hpf (None Seen) Urine Glucose Normal mg/dL (Normal) Microbiology Microbiology Date/Time Source Procedure Growth Status 04/03/24 18:00 Nasopharynx Coronavirus COVID-19 PCR ([facility]) - Final Complete 03/26/24 09:29 Nose MRSA Screen - Final Complete 03/23/24 15:56 Blood Blood Culture - Final NO GROWTH AFTER 5 DAYS OF INCUBATION. Complete Labs and/or images reviewed: Labs reviewed by me, Image(s) reviewed by me Assessment/Plan Assessment/Plan Covering Dr. Olivier: #Acute hypoxic respiratory failure with acute respiratory distress syndrome due to multifocal pneumonia #Sepsis due to multifocal pneumonia #Hypothyroidism #Anxiety, and depression; no suicidal ideation/plan #Obesity Continue oxygen therapy via Oxymizer as needed Continue IV antibiotics Pulmonology is following Counseled on the importance of adopting healthy lifestyle to lose weight Continue levothyroxine Continue psychiatric medications Continue close monitoring Goals of care discussed for 20 minutes; full code. 99 minutes of critical care time. Late Entry. This medical document was created using an electronic medical record system with computerized dictation system. Although this document has been carefully reviewed, there might still be some phonetic and typographical errors. These areas are purely typographical due to imperfections of the software programs, and do not reflect any compromise in the patient's medical care. Plan discussed with: Patient, Other (Nurse) Date of Service: Apr 07, 2024 Billing Provider: EDGAR GUERRA MD Common Visit Codes: [id number] CARE 30-74 MIN (99 minutes), [id number] CARE-EACH +30MIN Secondary Visit Codes: 32975-[id number] CARE PLAN 30 MINUTES (20 minutes) EDGAR GUERRA MD Apr 07, 2024 12:25
[2024-04-07 18:06] LABS: Coccidioides CF Antibody <1:2 (<1:2)
--- NOTE | 2024-04-07 23:15 | DVHPN2 ---
Progress Note - Dictate Date Seen: Apr 07, 2024 Has the PT tested + for MRSA If YES, has PT been informed?: No Medical Necessity Reason Pt with a Central, PICC or Fol: Yes The following are medically ne: Carreno Catheter Reason for carreno catheter: Strict I&O Subjective Patient seen and examined at bedside. Remains on supplemental oxygen Overnight events reviewed. vital signs Vital Sign Date Time Temp Pulse Resp B/P (MAP) Pulse Ox O2 Delivery O2 Flow Rate FiO2 04/07/24 22:00 82 14 107/61 (76) 94 04/07/24 20:00 Oxymizer 6 N/A 04/07/24 20:00 99.2 99.2 Total Intake and Output 04/06/24 04/06/24 04/07/24 15:00 23:00 07:00 Intake Total 1025 ml 825 ml 540 ml Output Total 1850 ml 450 ml Balance 1025 ml -1025 ml 90 ml medications Current Medications Medications Dose Ordered Sig/[place] Route Start Time Stop Time Status Last Admin Dose Admin Acetaminophen 650 mg Q4HP PRN PO 03/24/24 00:00 04/03/24 16:21 650 MG Enoxaparin Sodium 40 mg DAILY SC 03/25/24 10:00 04/07/24 10:56 40 MG Ipratropium [place] 0.5 mg Q4HWA NEB 03/24/24 06:00 04/07/24 22:47 0.5 MG Albuterol 2.5 mg Q4HWA NEB 03/24/24 06:00 04/07/24 22:47 2.5 MG Levothyroxine Sodium 75 mcg QAM@0600 PO 03/24/24 06:00 04/07/24 05:47 75 MCG Melatonin 5 mg HS PO 03/25/24 22:00 04/07/24 22:03 5 MG Piperacillin Sod/ Tazobactam Sod 100 ml @ 25 mls/hr Q8HR IV 03/26/24 16:00 04/07/24 20:47 25 MLS/HR Pantoprazole Sodium 40 mg DAILY IV 03/27/24 10:00 04/07/24 10:55 40 MG Patient Own Medication 1 DAILY PO 03/30/24 10:00 UNV Lorazepam 0.5 mg Q6HP PRN PO 04/02/24 09:30 04/07/24 22:03 0.5 MG Vancomycin HCl 0 ml @ 0 mls/hr UD IV 04/02/24 18:15 Azithromycin 250 ml @ 125 mls/hr DAILY IV 04/03/24 10:00 04/07/24 10:00 125 MLS/HR Citalopram Hydrobromide 20 mg DAILY PO 04/04/24 10:00 04/07/24 10:55 20 MG Acetaminophen/ Hydrocodone Bitart 1 tab Q6HPRN PRN PO 04/03/24 17:00 04/07/24 22:03 1 TAB Sodium Chloride 1 spr QID EACHNOSTRI 04/04/24 22:00 04/07/24 20:46 1 SPR Saccharomyces Boulardii 250 mg DAILY PO 04/04/24 20:30 04/07/24 10:55 250 MG Vancomycin HCl 250 ml @ 200 mls/hr Q10H IV 04/05/24 15:00 04/07/24 17:00 200 MLS/HR objective Gen.: Patient lying in bed in no apparent distress. On supplemental oxygen. Head: Normocephalic, atraumatic. Eyes: EOMI/PERRLA. Ears: Normal hearing. Normal anatomy. Neck/trachea: Trachea midline, supple. Nose: Normal external anatomy. Mouth: Moist mucous membranes. Chest: Decreased air entry bilaterally. No wheezing or rhonchi. Cardiovascular: Positive S1, positive S2. Regular rate and rhythm. Abdomen: Positive bowel sounds in all 4 quadrants. Soft, non-tender, non- distended. : Deferred. Rectal: Deferred. Skin: Warm, dry. Intact. Extremities: 2+ radial pulses bilaterally. No lower extremity edema. Neuro: Awake, alert, oriented x3. No gross motor or sensory deficits. Cranial nerves II through XII intact. Gait not assessed. laboratory and microbiology Laboratory Tests 04/07/24 05:26 Test 04/07/24 05:26 Range/Units Serum Glucose 89 74-106 mg/dL Assessment/Plan Impression: Acute hypoxic respiratory failure Acute respiratory distress syndrome Multifocal pneumonia Hx of nicotine dependence Obesity BMI 33.4 Atelectasis Events: Remains on supplemental oxygen On 6 LPM Oxymizer Taper O2 as tolerated Prone as tolerated. Continue antibiotics Continue bronchodilators Incentive spirometry Maintain euvolemia Monitor renal function. Monitor electrolytes. Supplement as necessary. Labs and imaging reviewed. Rest of plan as noted below. Plan: Supplemental oxygen BiPAP PRN Recommend proning or laying on side. Titrate to keep O2 sats above 90%. Continue bronchodilators. Continue antibiotics Pain control Avoid oversedation Maintain euvolemia Monitor renal function. Monitor electrolytes. Supplement as necessary. Monitor ins and outs. DVT prophylaxis. Prognosis: Poor given patient's multiple co-morbidities. Rest of plan per hospitalist and other consultants. Thank you, Dr. Alcazar, for allowing me to participate in this patient's care. Further recommendations will depend on the patient's clinical course. Please do not hesitate to contact me if you have any questions or concerns. This medical document was created using an electronic medical record system with [employer] dictation system. Although these documentations are being carefully reviewed, there may still be some phonetic and typographical changes. The errors are purely typographical, due to imperfection on the software program, and do not reflect any compromise in the patient's medical care. Dietary Evaluation Review Comments: Follow current diet Expected Outcomes/Goals: gradual wt loss Plan discussed with: Patient, Other (NURIA Escoto) DENA DRAPER MD Apr 07, 2024 23:15
[2024-04-08] VITALS (36 sets, daily range): BP systolic 97–122; BP diastolic 44–69; PULSE 55–100; RESP 15–29; TEMP 98.3–98.8; O2SAT 83–99
[2024-04-08 05:57] LABS: Hematocrit 29.8 % (36.0-46.0); Hemoglobin 10.1 g/dL (12.2-16.2); Mean Corpuscular Hemoglobin 30.7 pg (28.0-32.0); Mean Corpuscular Hgb Conc. 33.8 g/dL (32.0-36.0); Mean Corpuscular Volume 90.8 fL (80.0-100.0); Platelet Count (auto) 229 10^3/uL (140-450); Red Blood Cells 3.28 10^6/uL (4.0-5.20); Red Cell Distribution Width 14.8 % (11.8-14.3); White Blood Cell 8.3 10^3/uL (4.4-10.8)
--- NOTE | 2024-04-08 05:59 | DVH ---
CHEST RADIOGRAPH Indication: Acute hypoxic respiratory failure. Technique: Single frontal view of the chest was obtained Comparison: XY CHEST PORTABLE on DOS: 04/07/24, XY CHEST PORTABLE on DOS: 04/06/24, XY CHEST PORTABLE on DOS: 04/05/24 IMPRESSION: Heart appears prominent in size. Persistent subpleural airspace opacities. No sizable effusion or pn eumothorax.
[2024-04-08 06:07] LABS: Basophils % (manual) 0 (0.0-2.0); Blast Cells 0; Eosinophils % (manual) 0 (0-7); Metamyelocytes % 0; Myelocytes % 0; Promyelocytes % 0; Reactive Lymphocytes 0
[2024-04-08 06:15] LABS: Alanine Aminotransferase 17 U/L (7-40); Alkaline Phosphatase 49 U/L (46-116); Anion Gap 7 (5-15); BUN/Creatinine Ratio 15.3 (10.0-20.0); Carbon Dioxide 27 mmol/L (20-31); Chloride 105 mmol/L (98-107); Glucose 93 mg/dL (74-106); Sodium 139 mmol/L (136-145)
[2024-04-08 06:16] LABS: Bilirubin, Total 0.4 mg/dL (0.2-1.0)
[2024-04-08 06:17] LABS: Aspartate Aminotransferase 10 U/L (13-40); Blood Urea Nitrogen 9 mg/dL (9-23); Calcium 8.6 mg/dL (8.7-10.4); Total Protein 5.1 g/dL (5.7-8.2)
[2024-04-08 06:51] LABS: Band Neutrophils % (manual) 3; Lymphocytes % (manual) 28 (10.0-50.0); Monocytes % (manual) 1 (0-12); Platelet Estimate Adequate
--- NOTE | 2024-04-08 22:49 | DVHPN2 ---
Subjective Decreasing SOB Reviewed: Care Plan, H&P, Labs, Medications, Previous Orders, Radiology, Other (Consultation) Changes from previous H/P or p: Changes Objective Vitals Vital Signs Date Time Temp Pulse Resp B/P (MAP) Pulse Ox O2 Delivery O2 Flow Rate FiO2 04/08/24 20:01 79 27 107/55 (72) 93 04/08/24 18:18 Oxymizer 6 N/A 04/08/24 17:00 98.7 98.7 Intake/Output Intake and Output 04/08/24 07:00 Intake Total 2275 ml Output Total 3451 ml Balance -1176 ml Intake Oral 1450 ml IV Total 825 ml Output Urine Total 3450 ml Stool Total 1 ml General Appearance: Alert, Oriented X3, Cooperative, mild distress HEENT: Atraumatic Lungs: Other (Decreased air entry bilateral with scattered crackles ) Cardiovascular: Regular rate, Normal S1, Normal S2 Abdomen: Normal bowel sounds, Soft, No tenderness Genitourinary: Other (Quach's) Neuro: Normal speech, Cranial nerves 3-12 NL Psych/Mental Status: Mental status NL, Mood NL Medications Current Medications Medications Dose Ordered Sig/Saturn[place] Route Start Time Stop Time Status Last Admin Dose Admin Acetaminophen 650 mg Q4HP PRN PO 03/24/24 00:00 04/03/24 16:21 650 MG Enoxaparin Sodium 40 mg DAILY SC 03/25/24 10:00 04/08/24 10:14 40 MG Ipratropium [place] 0.5 mg Q4HWA NEB 03/24/24 06:00 04/08/24 18:18 0.5 MG Albuterol 2.5 mg Q4HWA NEB 03/24/24 06:00 04/08/24 18:18 2.5 MG Levothyroxine Sodium 75 mcg QAM@0600 PO 03/24/24 06:00 04/08/24 05:37 75 MCG Melatonin 5 mg HS PO 03/25/24 22:00 04/08/24 22:05 5 MG Piperacillin Sod/ Tazobactam Sod 100 ml @ 25 mls/hr Q8HR IV 03/26/24 16:00 04/08/24 22:04 25 MLS/HR Pantoprazole Sodium 40 mg DAILY IV 03/27/24 10:00 04/08/24 10:14 40 MG Patient Own Medication 1 DAILY PO 03/30/24 10:00 UNV Lorazepam 0.5 mg Q6HP PRN PO 04/02/24 09:30 04/08/24 22:05 0.5 MG Vancomycin HCl 0 ml @ 0 mls/hr UD IV 04/02/24 18:15 Azithromycin 250 ml @ 125 mls/hr DAILY IV 04/03/24 10:00 04/08/24 10:14 125 MLS/HR Citalopram Hydrobromide 20 mg DAILY PO 04/04/24 10:00 04/08/24 10:14 20 MG Acetaminophen/ Hydrocodone Bitart 1 tab Q6HPRN PRN PO 04/03/24 17:00 04/08/24 22:05 1 TAB Sodium Chloride 1 spr QID EACHNOSTRI 04/04/24 22:00 04/08/24 22:04 1 SPR Saccharomyces Boulardii 250 mg DAILY PO 04/04/24 20:30 04/08/24 10:14 250 MG Vancomycin HCl 250 ml @ 200 mls/hr Q12H IV 04/09/24 01:00 Laboratory Results Laboratory Tests 04/08/24 05:27 Chemistry Test 04/08/24 05:27 Albumin 3.0 g/dL (3.2-4.8) L Calcium Level 8.6 mg/dL (8.7-10.4) L Total Protein 5.1 g/dL (5.7-8.2) L LFT Test 04/08/24 05:27 Alanine Aminotransferase (ALT) 17 U/L (7-40) Alkaline Phosphatase 49 U/L (46-116) Aspartate Amino Transferase (AST) 10 U/L (13-40) L Total Bilirubin 0.4 mg/dL (0.2-1.0) Urinalysis Test 03/23/24 20:55 03/24/24 16:54 Urine Test Negative (Negative) Urine Color Light-yellow (Yellow) Urine Clarity Clear (Clear) Urine pH 6.5 (5.0-9.0) Urine Specific [place] 1.013 (1.001-1.035) Urine Protein Trace (Negative) H Urine Ketones Negative (Negative) Urine Blood Negative /uL (Negative) Urine Nitrite Negative (Negative) Urine Bilirubin Negative (Negative) Urine Urobilinogen Normal mg/dL (Negative) Urine Leukocyte Esterase Negative /uL (Negative) Urine RBC 1 /hpf (0 - 4) Urine Microscopic WBC 1 /HPF (0-5) Urine Squamous Epithelial Cells Few /hpf (<5) Urine Bacteria None seen /hpf (None Seen) Urine Glucose Normal mg/dL (Normal) Microbiology Microbiology Date/Time Source Procedure Growth Status 04/03/24 18:00 Nasopharynx Coronavirus COVID-19 PCR ([facility]) - Final Complete 03/26/24 09:29 Nose MRSA Screen - Final Complete 03/23/24 15:56 Blood Blood Culture - Final NO GROWTH AFTER 5 DAYS OF INCUBATION. Complete Labs and/or images reviewed: Labs reviewed by me, Image(s) reviewed by me Assessment/Plan Assessment/Plan Covering Dr. Olivier: #Acute hypoxic respiratory failure with acute respiratory distress syndrome due to multifocal pneumonia #Sepsis due to multifocal pneumonia #Hypothyroidism #Anxiety, and depression; no suicidal ideation/plan #Obesity Continue oxygen therapy via Oxymizer as needed; decreasing requirements Continue IV antibiotics Pulmonology is following Counseled on the importance of adopting healthy lifestyle to lose weight Continue levothyroxine Continue psychiatric medications Continue close monitoring 55 minutes of critical care time. Late Entry. This medical document was created using an electronic medical record system with computerized dictation system. Although this document has been carefully reviewed, there might still be some phonetic and typographical errors. These areas are purely typographical due to imperfections of the software programs, and do not reflect any compromise in the patient's medical care. Plan discussed with: Patient, Other (Nurse) Date of Service: Apr 08, 2024 Billing Provider: EDGAR GUERRA MD Common Visit Codes: [id number] CARE 30-74 MIN (55 minutes) EDGAR GUERRA MD Apr 08, 2024 22:49
[2024-04-09] VITALS (34 sets, daily range): BP systolic 89–136; BP diastolic 39–85; PULSE 58–107; RESP 16–35; TEMP 98.6–98.8; O2SAT 88–100
[2024-04-09] MEDS: VANCOMYCIN 1.25GM/250ML 250 ML IV SCH (01:56)
[2024-04-09 08:56] LABS: Hematocrit 30.9 % (36.0-46.0); Hemoglobin 10.3 g/dL (12.2-16.2); Mean Corpuscular Hemoglobin 30.1 pg (28.0-32.0); Mean Corpuscular Hgb Conc. 33.2 g/dL (32.0-36.0); Mean Corpuscular Volume 90.6 fL (80.0-100.0); Platelet Count (auto) 239 10^3/uL (140-450); Red Blood Cells 3.41 10^6/uL (4.0-5.20); Red Cell Distribution Width 15.2 % (11.8-14.3); White Blood Cell 8.6 10^3/uL (4.4-10.8)
[2024-04-09 09:12] LABS: Basophils % (manual) 0 (0.0-2.0); Blast Cells 0; Metamyelocytes % 0; Myelocytes % 0; Promyelocytes % 0; Reactive Lymphocytes 0
[2024-04-09 09:14] LABS: Alanine Aminotransferase 25 U/L (7-40); Albumin 3.3 g/dL (3.2-4.8); Alkaline Phosphatase 56 U/L (46-116); Anion Gap 5 (5-15); BUN/Creatinine Ratio 11.4 (10.0-20.0); Calcium 8.9 mg/dL (8.7-10.4); Carbon Dioxide 29 mmol/L (20-31); Chloride 105 mmol/L (98-107); Glucose 95 mg/dL (74-106); Potassium 4.4 mmol/L (3.5-5.1); Sodium 139 mmol/L (136-145)
[2024-04-09 09:15] LABS: Aspartate Aminotransferase 13 U/L (13-40); Bilirubin, Total 0.4 mg/dL (0.2-1.0); Blood Urea Nitrogen 8 mg/dL (9-23); Total Protein 5.4 g/dL (5.7-8.2)
[2024-04-09 10:44] LABS: Anisocytosis Slight; Band Neutrophils % (manual) 3; Eosinophils % (manual) 3 (0-7); Lymphocytes % (manual) 13 (10.0-50.0); Monocytes % (manual) 12 (0-12); Platelet Estimate Adequate
[2024-04-09] MEDS: FUROSEMIDE 20 MG/2 ML VIAL IV ONE (17:30)
--- NOTE | 2024-04-09 19:47 | DVHPNRES ---
Progress Note Date Seen: Apr 09, 2024 Resident Creating Document: CAMERON KING RESIDENT Has the PT tested + for MRSA If YES, has PT been informed?: No Medical Necessity Reason Pt with a Central, PICC or Fol: Yes The following are medically ne: Carreno Catheter Reason for carreno catheter: Strict I&O Subjective Review of Systems The patient at bedside still on oxygen support Objective vital signs Vital Sign Date Time Temp Pulse Resp B/P (MAP) Pulse Ox O2 Delivery O2 Flow Rate FiO2 04/09/24 19:00 96 32 122/60 (80) 94 04/09/24 18:24 Bi-Pap+ 5 46 Oxymizer 46 04/09/24 12:00 98.8 98.8 Total Intake and Output 04/08/24 04/08/24 04/09/24 15:00 23:00 07:00 Intake Total 830 ml 550 ml 975 ml Output Total 2000 ml 1000 ml Balance 830 ml -1450 ml -25 ml medications Current Medications Medications Dose Ordered Sig/[place]urn[place] Route Start Time Stop Time Status Last Admin Dose Admin Acetaminophen 650 mg Q4HP PRN PO 03/24/24 00:00 04/03/24 16:21 650 MG Enoxaparin Sodium 40 mg DAILY SC 03/25/24 10:00 04/09/24 10:35 40 MG Ipratropium [place] 0.5 mg Q4HWA NEB 03/24/24 06:00 04/09/24 18:20 0.5 MG Albuterol 2.5 mg Q4HWA NEB 03/24/24 06:00 04/09/24 18:20 2.5 MG Levothyroxine Sodium 75 mcg QAM@0600 PO 03/24/24 06:00 04/09/24 05:09 75 MCG Melatonin 5 mg HS PO 03/25/24 22:00 04/08/24 22:05 5 MG Piperacillin Sod/ Tazobactam Sod 100 ml @ 25 mls/hr Q8HR IV 03/26/24 16:00 04/09/24 14:30 25 MLS/HR Pantoprazole Sodium 40 mg DAILY IV 03/27/24 10:00 04/09/24 10:35 40 MG Patient Own Medication 1 DAILY PO 03/30/24 10:00 UNV Lorazepam 0.5 mg Q6HP PRN PO 04/02/24 09:30 04/08/24 22:05 0.5 MG Azithromycin 250 ml @ 125 mls/hr DAILY IV 04/03/24 10:00 04/09/24 10:00 125 MLS/HR Citalopram Hydrobromide 20 mg DAILY PO 04/04/24 10:00 04/09/24 10:35 20 MG Acetaminophen/ Hydrocodone Bitart 1 tab Q6HPRN PRN PO 04/03/24 17:00 04/08/24 22:05 1 TAB Sodium Chloride 1 spr QID EACHNOSTRI 04/04/24 22:00 04/09/24 18:00 1 SPR Saccharomyces Boulardii 250 mg DAILY PO 04/04/24 20:30 04/09/24 10:35 250 MG Examination: GENERAL:Normal, HEENT:Normal, NECK:Normal, LUNGS:Abnormal (6 L of high-flow nasal cannula oxygen, bilateral crackles, basal rales bilateral), CVS:Normal, ABDOMEN:Normal, MSK:Normal, SKIN:Normal, NEURO:Normal, :Normal laboratory and microbiology Laboratory Tests 04/09/24 08:36 Test 04/09/24 08:36 Range/Units Serum Glucose 95 74-106 mg/dL Microbiology Date/Time Source Procedure Growth Status 04/03/24 18:00 Nasopharynx Coronavirus COVID-19 PCR ([facility]) - Final Complete 03/26/24 09:29 Nose MRSA Screen - Final Complete 03/23/24 15:56 Blood Blood Culture - Final NO GROWTH AFTER 5 DAYS OF INCUBATION. Complete Labs and/or images reviewed: Labs reviewed by me, Image(s) reviewed by me Problem List/Assessment/Plan Problem List/Assessment/Plan ICU Course: 59-year-old female with a history of hypothyroidism, hypertension, dyslipidemia, nicotine dependence, obesity, and kidney stones presented to the hospital with shortness of breath and chest pain. She had fever, chills, and body pain five days ago and was prescribed doxycycline, zinc, and vitamin D at urgent care. Her symptoms worsened, and she developed shortness of breath and chest pain two days ago. She was diagnosed with COVID-19 two days ago and reports cough, chills, fever, and generalized body pain. She denies nausea, vomiting, headache, dysuria, or recent sick contact. She has a history of appendectomy, lives with her family, is an ex-smoker, and denies other drug use. Patient was found to have acute hypoxic respiratory failure with acute respiratory distress syndrome due to multifocal pneumonia, sepsis, now patient is needing high-flow nasal cannula oxygen. Hospitalization day: 16 A. Neurology: Alert , awake AAO x3 # insomnia melatonin 5 at bedtime. # anxiety: Citalopram and Ativan continue B. Cardiology: # essential hypertension: Blood pressure normal, map over 65, heart rate sinus 83 C. Respiratory: # acute hypoxic respiratory failure status post BiPAP and Oxymizer now on high- flow nasal cannula titrate as tolerated, as needed albuterol # multifocal pneumonia on , negative for flu and COVID, atypical pneumonia multifocal could be viral pneumonia with super sided bacterial pneumonia status post IV vanc Zosyn and azithromycin, follow up cultures, Dc vancomycin # pulmonary edema: IV Lasix 20, repeat chest x-ray tomorrow a.m. # elevated D-dimer: Ruled out PE and DVT # bilateral atelectasis: Continue incentive spirometry D. Gastrointenstinal: # antibiotic associated diarrhea: on Florastor , continue E. Geniotourinary: # on Carreno's catheter: close input output check, can DC Carreno's shortly F. Infectious Disease: # sepsis secondary due to multifocal atypical pneumonias: subsided leukocyte residual out. # extensive workup negative for HIV, pneumophilia, mycoplasma, STEPHON, rheumatoid factor negative, urinalysis negative G. Hematology & Oncology: #Mild anemia, likely multifactorial: Check iron panel. Daily CBC transfuse if Hb <7. H. Nephrology: #Bilateral nonobstructive nephrolithiasis, asymptomatic I. Endocrine: # prediabetes # obesity # hypothyroidism: Continue levothyroxine J. MSK: # osteoarthritis # chronic back pain: as needed analgesics Tylenol/[place] # acute care myopathy: PT to continue K. Prophylaxis: PPI: IV change to oral DVT: SCDs to continue L. Lines & Drains (with insertion date): Carreno's catheter N. Disposition: Tonight keep in [facility] consider Downgrade to Floor tomorrow morning. The plan was discussed with the ICU attending Dr. Estrada. The patient care consists of total 61 minutes of critical care time excluding the procedures. Dictated by Cameron King MD with 3M MModal Fluency. Plan discussed with: Patient My Orders My Orders Orders - CAMERON KING Procedure Category Date Status Time Chest Xray 1 View XY 04/10/24 Logged 04:00 Complete Blood Count LAB 04/10/24 Verified 04:00 Comprehensive LAB 04/10/24 Verified Metabolic Panel 04:00 Dietary Evaluation Review Comments: Follow current diet Expected Outcomes/Goals: gradual wt loss Date of Service: Apr 09, 2024 Billing Provider: LISA ESTRADA MD Common Visit Codes: [id number] CARE 30-74 MIN CAMERON KING Apr 09, 2024 19:47 LISA ESTRADA MD Apr 10, 2024 16:15
[2024-04-10] VITALS (35 sets, daily range): BP systolic 96–135; BP diastolic 51–75; PULSE 52–96; RESP 15–27; TEMP 98.1–99.6; O2SAT 90–100
--- NOTE | 2024-04-10 05:31 | DVH ---
CHEST RADIOGRAPH Indication: Pneumonia with hypoxia Technique: Single frontal view of the chest was obtained COMPARISON: None FINDINGS: Lines and Tubes: None Lungs: Multifocal airspace disease. Pleura: No effusion. No pneumothorax. Cardiomediastinal contours: Unremarkable Bones: Unremarkable IMPRESSION: Multifocal airspace disease, unchanged
[2024-04-10 05:46] LABS: Alanine Aminotransferase 23 U/L (7-40); Albumin 3.3 g/dL (3.2-4.8); Alkaline Phosphatase 56 U/L (46-116); Anion Gap 6 (5-15); Aspartate Aminotransferase 13 U/L (13-40); BUN/Creatinine Ratio 13.2 (10.0-20.0); Calcium 9.3 mg/dL (8.7-10.4); Carbon Dioxide 31 mmol/L (20-31); Chloride 103 mmol/L (98-107); Glucose 100 mg/dL (74-106); Potassium 3.8 mmol/L (3.5-5.1); Sodium 140 mmol/L (136-145)
[2024-04-10 05:47] LABS: % Iron Saturation 21.5 % (15-50); Bilirubin, Total 0.4 mg/dL (0.2-1.0)
[2024-04-10 05:54] LABS: Blood Urea Nitrogen 9 mg/dL (9-23); Total Protein 5.5 g/dL (5.7-8.2)
[2024-04-10 06:18] LABS: Basophils # (auto) 0 10 ^3/uL (0-0.2); Basophils % (auto) 0.4 % (0.0-2.0); Eosinophils # (auto) 0.4 10 ^3/uL (0-0.8); Eosinophils % (auto) 4.1 % (0.0-7.0); Hematocrit 31.7 % (36.0-46.0); Hemoglobin 10.3 g/dL (12.2-16.2); Lymphocytes # (auto) 1.3 10 ^3/uL (0.4-5.4); Lymphocytes % (auto) 15.1 % (10.0-50.0); Mean Corpuscular Hemoglobin 29.7 pg (28.0-32.0); Mean Corpuscular Hgb Conc. 32.5 g/dL (32.0-36.0); Mean Corpuscular Volume 91.4 fL (80.0-100.0); Monocytes # (auto) 0.8 10 ^3/uL (0-1.3); Monocytes % (auto) 9.4 % (0.0-12.0); Neutrophils # (auto) 6.1 10 ^3/uL (1.6-8.6); Nucleated Red Blood Cells % 0.1 %; Platelet Count (auto) 228 10^3/uL (140-450); Red Blood Cells 3.46 10^6/uL (4.0-5.20); Red Cell Distribution Width 15.4 % (11.8-14.3); White Blood Cell 8.7 10^3/uL (4.4-10.8)
[2024-04-10] MEDS: FUROSEMIDE 20 MG/2 ML VIAL IV ONE (17:46)
--- NOTE | 2024-04-10 23:46 | DVHPNRES ---
Progress Note Date Seen: Apr 10, 2024 Resident Creating Document: LOUISE KING RESIDENT Has the PT tested + for MRSA If YES, has PT been informed?: No Medical Necessity Reason Pt with a Central, PICC or Fol: Yes The following are medically ne: Carreno Catheter Reason for carreno catheter: Strict I&O Subjective Review of Systems Overnight patient improved on 6 L to 5 L of nasal cannula oxygen, patient tried prone position which helped, not tolerating well CPAP. Status post diuresing with IV Lasix. Patient reports: No new complaints Objective vital signs Vital Sign Date Time Temp Pulse Resp B/P (MAP) Pulse Ox O2 Delivery O2 Flow Rate FiO2 04/10/24 22:00 82 18 119/64 (82) 96 04/10/24 20:00 Oxymizer 5 N/A 04/10/24 20:00 98.8 98.8 Total Intake and Output 04/09/24 04/09/24 04/10/24 15:00 23:00 07:00 Intake Total 1080 ml 820 ml 400 ml Output Total 2275 ml 1475 ml Balance 1080 ml -1455 ml -1075 ml medications Current Medications Medications Dose Ordered Sig/[place] Route Start Time Stop Time Status Last Admin Dose Admin Acetaminophen 650 mg Q4HP PRN PO 03/24/24 00:00 04/03/24 16:21 650 MG Enoxaparin Sodium 40 mg DAILY SC 03/25/24 10:00 04/10/24 09:50 40 MG Ipratropium [place] 0.5 mg Q4HWA [facility] 03/24/24 06:00 04/10/24 21:45 0.5 MG Albuterol 2.5 mg Q4HWA [facility] 03/24/24 06:00 04/10/24 21:45 2.5 MG Levothyroxine Sodium 75 mcg QAM@0600 PO 03/24/24 06:00 04/10/24 05:30 75 MCG Melatonin 5 mg HS PO 03/25/24 22:00 04/10/24 21:54 5 MG Piperacillin Sod/ Tazobactam Sod 100 ml @ 25 mls/hr Q8HR IV 03/26/24 16:00 04/10/24 21:54 25 MLS/HR Pantoprazole Sodium 40 mg DAILY IV 03/27/24 10:00 04/10/24 09:49 40 MG Patient Own Medication 1 DAILY PO 03/30/24 10:00 UNV Lorazepam 0.5 mg Q6HP PRN PO 04/02/24 09:30 04/10/24 22:03 0.5 MG Azithromycin 250 ml @ 125 mls/hr DAILY IV 04/03/24 10:00 04/10/24 09:49 125 MLS/HR Citalopram Hydrobromide 20 mg DAILY PO 04/04/24 10:00 04/10/24 09:50 20 MG Acetaminophen/ Hydrocodone Bitart 1 tab Q6HPRN PRN PO 04/03/24 17:00 04/10/24 22:03 1 TAB Sodium Chloride 1 spr QID EACHNOSTRI 04/04/24 22:00 04/10/24 21:55 1 SPR Saccharomyces Boulardii 250 mg DAILY PO 04/04/24 20:30 04/10/24 09:50 250 MG Examination GENERAL:Normal, HEENT:Normal, NECK:Normal, LUNGS:Abnormal (5 L of high-flow nasal cannula oxygen, bilateral crackles, basal rales bilateral), CVS:Normal, ABDOMEN:Normal, MSK:Normal, SKIN:Normal, NEURO:Normal, :Normal laboratory and microbiology Laboratory Tests 04/10/24 05:14 Test 04/10/24 05:14 Range/Units Serum Glucose 100 74-106 mg/dL Microbiology Date/Time Source Procedure Growth Status 04/03/24 18:00 Nasopharynx Coronavirus COVID-19 PCR ([facility]) - Final Complete 03/26/24 09:29 Nose MRSA Screen - Final Complete 03/23/24 15:56 Blood Blood Culture - Final NO GROWTH AFTER 5 DAYS OF INCUBATION. Complete Labs and/or images reviewed: Labs reviewed by me, Image(s) reviewed by me Problem List/Assessment/Plan Problem List/Assessment/Plan ICU Course: 59-year-old female with a history of hypothyroidism, hypertension, dyslipidemia, nicotine dependence, obesity, and kidney stones presented to the hospital with shortness of breath and chest pain. She had fever, chills, and body pain five days ago and was prescribed doxycycline, zinc, and vitamin D at urgent care. Her symptoms worsened, and she developed shortness of breath and chest pain two days ago. She was diagnosed with COVID-19 two days ago and reports cough, chills, fever, and generalized body pain. She denies nausea, vomiting, headache, dysuria, or recent sick contact. She has a history of appendectomy, lives with her family, is an ex-smoker, and denies other drug use. Patient was found to have acute hypoxic respiratory failure with acute respiratory distress syndrome due to multifocal pneumonia, sepsis, now patient is needing high-flow nasal cannula oxygen. Hospitalization day: 17 A. Neurology: Alert , awake AAO x3 # insomnia melatonin 5 at bedtime. # anxiety: Citalopram and Ativan continue B. Cardiology: # essential hypertension: Blood pressure normal, map over 65, heart rate sinus 83 C. Respiratory: # acute hypoxic respiratory failure: status post BiPAP and Oxymizer now on high- flow nasal cannula titrate as tolerated, as needed albuterol status post 20 mg IV Lasix, we will try to wean down oxygen, repeat labs tomorrow, repeat chest CT noncontrast tomorrow. Can try proning. We will repeat 20 mg IV Lasix if blood pressure is stable. We will consider V/Q scan to rule out CTEPH perhaps if CT chest unremarkable. # multifocal pneumonia on , negative for flu and COVID, atypical pneumonia multifocal could be viral pneumonia with super sided bacterial pneumonia status post IV vanc Zosyn and azithromycin, follow up cultures, Dc vancomycin # pulmonary edema: IV Lasix 20, repeat chest x-ray tomorrow a.m. # elevated D-dimer: Ruled out PE and DVT # bilateral atelectasis: Continue incentive spirometry D. Gastrointenstinal: # antibiotic associated diarrhea: on Florastor , continue E. Geniotourinary: # on Carreno's catheter: close input output check, can DC Carreno's shortly F. Infectious Disease: # sepsis secondary due to multifocal atypical pneumonias: subsided leukocyte residual out. # extensive workup negative for HIV, pneumophilia, mycoplasma, STEPHON, rheumatoid factor negative, urinalysis negative G. Hematology & Oncology: #Mild anemia, likely multifactorial: Mixed iron panel. Daily CBC transfuse if Hb <7. Normocytic hypochromic H. Nephrology: #Bilateral nonobstructive nephrolithiasis, asymptomatic I. Endocrine: # prediabetes # obesity # hypothyroidism: Continue levothyroxine J. MSK: # osteoarthritis # chronic back pain: as needed analgesics Tylenol/[place] # acute care myopathy: PT to continue, K. Prophylaxis: PPI: IV change to oral DVT: SCDs to continue L. Lines & Drains (with insertion date): Carreno's catheter we will consider to DC on since 03/26/2024 N. Disposition: Tonight keep in [facility], consider Downgrade to Floor tomorrow morning. Updated patient at bedside. The plan was discussed with the ICU attending Dr. Estrada. The patient care consists of total 43 minutes of critical care time excluding the procedures. Plan discussed with: Patient, Other (Primary team) Dietary Evaluation Review Comments: Follow current diet Expected Outcomes/Goals: gradual wt loss Date of Service: Apr 10, 2024 Billing Provider: LISA ESTRADA MD Common Visit Codes: [id number] CARE 30-74 MIN LOUISE KING RESIDENT Apr 10, 2024 23:46 LISA ESTRADA MD Apr 11, 2024 17:41
[2024-04-11] VITALS (37 sets, daily range): BP systolic 91–131; BP diastolic 41–84; PULSE 56–107; RESP 13–40; TEMP 98.1–99.5; O2SAT 87–100
--- NOTE | 2024-04-11 15:55 | DVH ---
EXAM: CT CHEST WITHOUT CONTRAST History: PNEUMONIA Comparison Study: None available TECHNIQUE: Multidetector CT of the chest was performed. Imaging was performed without IV contrast. Ax ial, coronal, and sagittal multiplanar reformats were obtained from the axial data set by the technol [email or web address]. Radiation Dose : CTDI vol 11.18 mGy, DLP 392.96 mGy*cm. Findings: Lungs: Multifocal peripheral opacities throughout both lungs. Bilateral lower lobe consolidations wit h air bronchograms. Pleura: Unremarkable Heart/Great vessels: No cardiomegaly. Small pericardial effusion. Mediastinum: Unremarkable Soft tissues/Bones: Mild multilevel degenerative changes of the thoracic spine. Intravertebral keyon ioma of T11. The partially visualized upper abdomen is within normal limits. Impression: 1. Multifocal pneumonia. 2. Small pericardial effusion.
[2024-04-11 22:01] LABS: Urine Bacteria None Seen /hpf (None Seen)
[2024-04-11 22:11] LABS: Urine Blood 3+ /uL (Negative); Urine Clarity Turbid (Clear); Urine Color Light-Brown (Yellow); Urine Protein, UAD TRACE (Negative); Urine Specific Gravity 1.019 (1.001-1.035); Urine Squamous Epithelial Cell None Seen /hpf (<5); Urine Urobilinogen Normal (Negative); Urine WBC 79 /HPF (0-5); Urine pH 6.5 (5.0-9.0)
--- NOTE | 2024-04-11 23:40 | DVHPNRES ---
Progress Note Date Seen: Apr 11, 2024 Resident Creating Document: LOUISE KING RESIDENT Has the PT tested + for MRSA If YES, has PT been informed?: No Medical Necessity Reason Pt with a Central, PICC or Fol: Yes The following are medically ne: Carreno Catheter Reason for carreno catheter: Strict I&O Subjective Review of Systems Patient is remains in the [place] status, status post removal of urinary catheter and IV Lasix improving respiratory status. Patient reports: Feels better Objective vital signs Vital Sign Date Time Temp Pulse Resp B/P (MAP) Pulse Ox O2 Delivery O2 Flow Rate FiO2 04/11/24 22:00 68 04/11/24 20:00 14 94 Nasal Cannula* 4 36 04/11/24 20:00 98.6 115/63 (80) 98.6 Total Intake and Output 04/10/24 04/10/24 04/11/24 15:00 23:00 07:00 Intake Total 590 ml 1080 ml 440 ml Output Total 1200 ml 1750 ml Balance 590 ml -120 ml -1310 ml medications Current Medications Medications Dose Ordered Sig/[place] Route Start Time Stop Time Status Last Admin Dose Admin Acetaminophen 650 mg Q4HP PRN PO 03/24/24 00:00 04/03/24 16:21 650 MG Enoxaparin Sodium 40 mg DAILY SC 03/25/24 10:00 04/11/24 10:13 40 MG Ipratropium [place] 0.5 mg Q4HWA NEB 03/24/24 06:00 04/11/24 22:29 0.5 MG Albuterol 2.5 mg Q4HWA NEB 03/24/24 06:00 04/11/24 22:29 2.5 MG Levothyroxine Sodium 75 mcg QAM@0600 PO 03/24/24 06:00 04/11/24 06:06 75 MCG Melatonin 5 mg HS PO 03/25/24 22:00 04/11/24 21:30 5 MG Patient Own Medication 1 DAILY PO 03/30/24 10:00 UNV Lorazepam 0.5 mg Q6HP PRN PO 04/02/24 09:30 04/11/24 21:30 0.5 MG Azithromycin 250 ml @ 125 mls/hr DAILY IV 04/03/24 10:00 04/11/24 10:13 125 MLS/HR Citalopram Hydrobromide 20 mg DAILY PO 04/04/24 10:00 04/11/24 10:12 20 MG Acetaminophen/ Hydrocodone Bitart 1 tab Q6HPRN PRN PO 04/03/24 17:00 04/11/24 21:27 1 TAB Sodium Chloride 1 spr QID EACHNOSTRI 04/04/24 22:00 04/11/24 21:42 1 SPR Saccharomyces Boulardii 250 mg DAILY PO 04/04/24 20:30 04/11/24 10:12 250 MG Pantoprazole Sodium 40 mg DAILY@0600 PO 04/12/24 06:00 Examination GENERAL:Normal (Looks sick), HEENT:Normal (Oral mucosa dry and cracked , chelitis. ), NECK:Normal, LUNGS:Abnormal (Bilateral basal rales likely due to atelectasis), CVS:Normal (Blood pressure well controlled with the MAP over 65.), ABDOMEN:Normal, MSK:Abnormal (Low muscle mass), SKIN:Abnormal (Low skin turgor), NEURO:Abnormal (Alert but not oriented x1 responding to vocal stimuli), :Abnormal (And retract tube still having brown loose stool) laboratory and microbiology Laboratory Tests 04/10/24 05:14 Test 04/10/24 05:14 Range/Units Serum Glucose 100 74-106 mg/dL Microbiology Date/Time Source Procedure Growth Status 04/03/24 18:00 Nasopharynx Coronavirus COVID-19 PCR ([facility]) - Final Complete 03/26/24 09:29 Nose MRSA Screen - Final Complete 03/23/24 15:56 Blood Blood Culture - Final NO GROWTH AFTER 5 DAYS OF INCUBATION. Complete Labs and/or images reviewed: Labs reviewed by me, Image(s) reviewed by me Problem List/Assessment/Plan Problem List/Assessment/Plan ICU Course: 59-year-old female with a history of hypothyroidism, hypertension, dyslipidemia, nicotine dependence, obesity, and kidney stones presented to the hospital with shortness of breath and chest pain. She had fever, chills, and body pain five days ago and was prescribed doxycycline, zinc, and vitamin D at urgent care. Her symptoms worsened, and she developed shortness of breath and chest pain two days ago. She was diagnosed with COVID-19 two days ago and reports cough, chills, fever, and generalized body pain. She denies nausea, vomiting, headache, dysuria, or recent sick contact. She has a history of appendectomy, lives with her family, is an ex-smoker, and denies other drug use. Patient was found to have acute hypoxic respiratory failure with acute respiratory distress syndrome due to multifocal pneumonia, sepsis, now patient is needing high-flow nasal cannula oxygen. Over patient is slowly improving,. Hospitalization day: 18 A. Neurology: Alert , awake AAO x3 # insomnia melatonin 5 at bedtime. # anxiety: Citalopram and Ativan continue B. Cardiology: # essential hypertension: Blood pressure normal, map over 65, heart rate sinus 83 C. Respiratory: # acute hypoxic respiratory failure: status post BiPAP and Oxymizer now on high- flow nasal cannula titrate as tolerated, as needed albuterol status post 20 mg IV Lasix, we will try to wean down oxygen, repeat labs tomorrow, repeat chest CT noncontrast tomorrow. Can try proning. Change IV Lasix to oral [address] chest consistent of multifocal peripheral pneumonia similar to COVID pattern. Continue 4 hours of CPAP/BiPAP. # multifocal pneumonia on , negative for flu and COVID, atypical pneumonia multifocal could be viral pneumonia with super sided bacterial pneumonia status post IV vanc Zosyn and azithromycin, follow up cultures, Dc vancomycin # pulmonary edema: IV Lasix 20, repeat chest x-ray tomorrow a.m. # elevated D-dimer: Ruled out PE and DVT # bilateral atelectasis: Continue incentive spirometry D. Gastrointenstinal: # antibiotic associated diarrhea: on Florastor , continue E. Geniotourinary: # on Carreno's catheter: close input output check, can DC Carreno's shortly # patient has now urinary symptoms: Status post Carreno's catheter out. UA positive, previous cultures negative for resistant bugs, we will start with IV ceftriaxone recheck CBC and BMP daily, urine culture to check. CAUTI? F. Infectious Disease: # sepsis secondary due to multifocal atypical pneumonias: subsided leukocyte residual out. # extensive workup negative for HIV, pneumophilia, mycoplasma, STEPHON, rheumatoid factor negative, urinalysis negative G. Hematology & Oncology: #Mild anemia, likely multifactorial: Mixed iron panel. Daily CBC transfuse if Hb <7. Normocytic hypochromic H. Nephrology: #Bilateral nonobstructive nephrolithiasis, asymptomatic I. Endocrine: # prediabetes # obesity # hypothyroidism: Continue levothyroxine J. MSK: # osteoarthritis # chronic back pain: as needed analgesics Tylenol/[place] # acute care myopathy: PT to continue, for now, patient is able to walk more with less disability/shortness of breath. K. Prophylaxis: PPI: IV change to oral DVT: SCDs to continue L. Lines & Drains (with insertion date): Carreno's catheter we will consider to DC on since 03/26/2024 N. Disposition: Tonight keep in [place], consider Downgrade to Floor tomorrow morning. Updated patient at bedside. The plan was discussed with the ICU attending Dr. Estrada. The patient care consists of total 43 minutes of critical care time excluding the procedures. Plan discussed with: Patient, Other (Primary team.) Dietary Evaluation Review Comments: Follow current diet Expected Outcomes/Goals: gradual wt loss Date of Service: Apr 11, 2024 Billing Provider: LISA ESTRADA MD Common Visit Codes: [id number] CARE 30-74 MIN LOUISE KING RESIDENT Apr 11, 2024 23:40 LISA ESTRADA MD Apr 12, 2024 13:04
[2024-04-12] VITALS (37 sets, daily range): BP systolic 93–156; BP diastolic 45–76; PULSE 57–96; RESP 14–29; TEMP 98.2–99.2; O2SAT 94–100
[2024-04-12 05:37] LABS: Basophils # (auto) 0.1 10 ^3/uL (0-0.2); Eosinophils # (auto) 0.7 10 ^3/uL (0-0.8); Eosinophils % (auto) 9.2 % (0.0-7.0); Hemoglobin 9.8 g/dL (12.2-16.2); Lymphocytes # (auto) 1.5 10 ^3/uL (0.4-5.4); Lymphocytes % (auto) 18.8 % (10.0-50.0); Mean Corpuscular Hemoglobin 30.7 pg (28.0-32.0); Mean Corpuscular Hgb Conc. 33.9 g/dL (32.0-36.0); Mean Corpuscular Volume 90.6 fL (80.0-100.0); Monocytes # (auto) 0.9 10 ^3/uL (0-1.3); Neutrophils # (auto) 4.6 10 ^3/uL (1.6-8.6); Nucleated Red Blood Cells % 0.2 %; Platelet Count (auto) 203 10^3/uL (140-450); Red Cell Distribution Width 15.2 % (11.8-14.3); White Blood Cell 7.7 10^3/uL (4.4-10.8)
[2024-04-12] MEDS: PANTOPRAZOLE 40 MG TAB PO SCH (05:43)
[2024-04-12 05:48] LABS: Alanine Aminotransferase 19 U/L (7-40); Albumin 3.4 g/dL (3.2-4.8); Alkaline Phosphatase 60 U/L (46-116); Anion Gap 6 (5-15); BUN/Creatinine Ratio 14.5 (10.0-20.0); Calcium 9.3 mg/dL (8.7-10.4); Carbon Dioxide 31 mmol/L (20-31); Chloride 104 mmol/L (98-107); Glucose 98 mg/dL (74-106); Potassium 3.9 mmol/L (3.5-5.1); Sodium 141 mmol/L (136-145)
[2024-04-12 05:49] LABS: Bilirubin, Total 0.3 mg/dL (0.2-1.0); Total Protein 5.7 g/dL (5.7-8.2)
[2024-04-12 05:52] LABS: Aspartate Aminotransferase 11 U/L (13-40); Blood Urea Nitrogen 9 mg/dL (9-23)
[2024-04-12] MEDS: cefTRIAXone 1GM/50ML D5W 50 ML IV SCH (09:00)
--- NOTE | 2024-04-12 14:18 | DVH ---
EXAM: US LT UPPER DVT Clinical History: R/O DVT Comparison: None Technique: Duplex Doppler evaluation of the deep venous systems of the left upper extremity from the internal ju gular to the ulnar vein including color Doppler and spectral/pulsed waveform analysis was performed. Findings: Normal compressibility and color Doppler flow is seen in the left upper extremity veins including the internal jugular, subclavian, axillary, brachial, radial and ulnar veins. Superficial venous thrombus in the left cephalic vein. Impression: 1. No sonographic evidence for left upper extremity DVT. 2. Superficial venous thrombus in the left cephalic vein.
--- NOTE | 2024-04-12 20:12 | DVHPNRES ---
Progress Note Date Seen: Apr 12, 2024 Resident Creating Document: LOUISE KING RESIDENT Has the PT tested + for MRSA If YES, has PT been informed?: No Medical Necessity Reason Pt with a Central, PICC or Fol: Yes The following are medically ne: Carreno Catheter Reason for carreno catheter: Strict I&O Objective vital signs Vital Sign Date Time Temp Pulse Resp B/P (MAP) Pulse Ox O2 Delivery O2 Flow Rate FiO2 04/12/24 19:00 93 24 144/72 (96) 94 04/12/24 18:41 Nasal Cannula* 4 36 04/12/24 16:00 98.8 98.8 Total Intake and Output 04/11/24 04/11/24 04/12/24 15:00 23:00 07:00 Intake Total 250 ml 590 ml 300 ml Output Total 600 ml 425 ml Balance 250 ml -10 ml -125 ml medications Current Medications Medications Dose Ordered Sig/[place]urn[place] Route Start Time Stop Time Status Last Admin Dose Admin Acetaminophen 650 mg Q4HP PRN PO 03/24/24 00:00 04/03/24 16:21 650 MG Enoxaparin Sodium 40 mg DAILY SC 03/25/24 10:00 04/12/24 09:31 40 MG Ipratropium [place] 0.5 mg Q4HWA NEB 03/24/24 06:00 04/12/24 18:41 0.5 MG Albuterol 2.5 mg Q4HWA NEB 03/24/24 06:00 04/12/24 18:41 2.5 MG Levothyroxine Sodium 75 mcg QAM@0600 PO 03/24/24 06:00 04/12/24 05:53 75 MCG Melatonin 5 mg HS PO 03/25/24 22:00 04/11/24 21:30 5 MG Patient Own Medication 1 DAILY PO 03/30/24 10:00 UNV Lorazepam 0.5 mg Q6HP PRN PO 04/02/24 09:30 04/11/24 21:30 0.5 MG Citalopram Hydrobromide 20 mg DAILY PO 04/04/24 10:00 04/12/24 09:31 20 MG Acetaminophen/ Hydrocodone Bitart 1 tab Q6HPRN PRN PO 04/03/24 17:00 04/11/24 21:27 1 TAB Sodium Chloride 1 spr QID EACHNOSTRI 04/04/24 22:00 04/12/24 18:22 1 SPR Saccharomyces Boulardii 250 mg DAILY PO 04/04/24 20:30 04/12/24 09:31 250 MG Pantoprazole Sodium 40 mg DAILY@0600 PO 04/12/24 06:00 04/12/24 05:43 40 MG Ceftriaxone Sodium 50 ml @ 100 mls/hr DAILY@09 IV 04/12/24 09:00 04/12/24 09:00 100 MLS/HR Azithromycin 500 mg DAILY PO 04/13/24 10:00 Examination GENERAL:Normal (Looks sick), HEENT:Normal (Oral mucosa dry and cracked , chelitis. ), NECK:Normal, LUNGS:Abnormal (Bilateral basal rales likely due to atelectasis), CVS:Normal (Blood pressure well controlled with the MAP over 65.), ABDOMEN:Normal, MSK:Abnormal (Low muscle mass), SKIN:Abnormal (Low skin turgor), NEURO:Abnormal (Alert but not oriented x1 responding to vocal stimuli), :Abnormal (And retract tube still having brown loose stool) Left arm picc line tenderness and redness locally. laboratory and microbiology Laboratory Tests 04/12/24 05:10 Test 04/12/24 05:10 Range/Units Serum Glucose 98 74-106 mg/dL Microbiology Date/Time Source Procedure Growth Status 04/03/24 18:00 Nasopharynx Coronavirus COVID-19 PCR ([facility]) - Final Complete 03/26/24 09:29 Nose MRSA Screen - Final Complete 03/23/24 15:56 Blood Blood Culture - Final NO GROWTH AFTER 5 DAYS OF INCUBATION. Complete Labs and/or images reviewed: Labs reviewed by me, Image(s) reviewed by me Problem List/Assessment/Plan Problem List/Assessment/Plan ICU Course: 59-year-old female with a history of hypothyroidism, hypertension, dyslipidemia, nicotine dependence, obesity, and kidney stones presented to the hospital with shortness of breath and chest pain. She had fever, chills, and body pain five days ago and was prescribed doxycycline, zinc, and vitamin D at urgent care. Her symptoms worsened, and she developed shortness of breath and chest pain two days ago. She was diagnosed with COVID-19 two days ago and reports cough, chills, fever, and generalized body pain. She denies nausea, vomiting, headache, dysuria, or recent sick contact. She has a history of appendectomy, lives with her family, is an ex-smoker, and denies other drug use. Patient was found to have acute hypoxic respiratory failure with acute respiratory distress syndrome due to multifocal pneumonia, sepsis, now patient is needing high-flow nasal cannula oxygen. Over time patient is slowly improving. Hospitalization day: 19 A. Neurology: Alert , awake AAO x3 # insomnia melatonin 5 at bedtime. # anxiety: Citalopram and Ativan continue B. Cardiology: # essential hypertension: Blood pressure normal, map over 65, heart rate sinus 83 C. Respiratory: # acute hypoxic respiratory failure: status post BiPAP and Oxymizer now on high- flow nasal cannula titrate as tolerated, as needed albuterol status post 20 mg IV Lasix, we will try to wean down oxygen, repeat labs tomorrow, repeat chest CT noncontrast tomorrow. Can try proning. Change IV Lasix to oral [address] chest consistent of multifocal peripheral pneumonia similar to COVID pattern. Continue 4 hours of CPAP/BiPAP. # multifocal pneumonia on , negative for flu and COVID, atypical pneumonia multifocal could be viral pneumonia with super sided bacterial pneumonia status post IV vanc Zosyn and azithromycin, follow up cultures, Dc vancomycin # pulmonary edema: IV Lasix 20, repeat chest x-ray tomorrow a.m. # elevated D-dimer: Ruled out PE and DVT # bilateral atelectasis: Continue incentive spirometry D. Gastrointenstinal: # antibiotic associated diarrhea: on Florastor , continue E. Geniotourinary: # on Carreno's catheter: close input output check, can DC Carreno's shortly # patient has now urinary symptoms: Status post Carreno's catheter out. UA positive, previous cultures negative for resistant bugs, we will start with IV ceftriaxone recheck CBC and BMP daily, urine culture to check. CAUTI highly unlikely. F. Infectious Disease: # sepsis secondary due to multifocal atypical pneumonias: subsided leukocyte residual out. # extensive workup negative for HIV, pneumophila, mycoplasma, STEPHON, rheumatoid factor negative, urinalysis negative G. Hematology & Oncology: #Mild anemia, likely multifactorial: Mixed iron panel. Daily CBC transfuse if Hb <7. Normocytic hypochromic #Left arm thrombophlebitis: restart DVT prophylaxis. intact vasculature. warm compress, symptomatic treatment. remove the picc line. in case needed consider new IV access. switching medications to oral for early discharge planning. H. Nephrology: #Bilateral nonobstructive nephrolithiasis, asymptomatic I. Endocrine: # prediabetes # obesity # hypothyroidism: Continue levothyroxine J. MSK: # osteoarthritis # chronic back pain: as needed analgesics Tylenol/[place] # acute care myopathy: PT to continue, for now, patient is able to walk more with less disability/shortness of breath. K. Prophylaxis: PPI: IV change to oral DVT: SCDs to continue L. Lines & Drains (with insertion date): Carreno's catheter we will consider to DC on since 03/26/2024 N. Disposition: Downgrade to Floor. Updated patient at bedside. The plan was discussed with the ICU attending Dr. Estrada. The patient care consists of total 53 minutes of critical care time excluding the procedures. Plan discussed with: Patient, Other My Orders My Orders Orders - LOUISE KING Procedure Category Date Status Time Ceftriaxone 1gm/50ml PHA 04/12/24 In Process D5w (Rocephin) 09:00 Urine Bacterial [facility]URDES 04/12/24 In Process Culture 00:44 Communication Order ORDERS 04/12/24 Transmitted 12:27 Lt Upper Dvt US 04/12/24 Resulted 12:39 Dietary Evaluation Review Comments: Follow current diet Expected Outcomes/Goals: gradual wt loss Date of Service: Apr 12, 2024 Billing Provider: LISA ESTRADA MD Common Visit Codes: [id number] CARE 30-74 MIN LOUISE KING Apr 12, 2024 20:12 LISA ESTRADA MD Apr 15, 2024 17:57
[2024-04-13] VITALS (32 sets, daily range): BP systolic 104–148; BP diastolic 56–82; PULSE 55–103; RESP 11–25; TEMP 97.9–99.8; O2SAT 93–100
[2024-04-13 07:31] LABS: Basophils # (auto) 0.1 10 ^3/uL (0-0.2); Basophils % (auto) 1.5 % (0.0-2.0); Eosinophils # (auto) 0.7 10 ^3/uL (0-0.8); Eosinophils % (auto) 9.5 % (0.0-7.0); Hematocrit 30.4 % (36.0-46.0); Hemoglobin 9.9 g/dL (12.2-16.2); Lymphocytes # (auto) 1.3 10 ^3/uL (0.4-5.4); Lymphocytes % (auto) 17.3 % (10.0-50.0); Mean Corpuscular Hemoglobin 29.7 pg (28.0-32.0); Mean Corpuscular Hgb Conc. 32.5 g/dL (32.0-36.0); Mean Corpuscular Volume 91.3 fL (80.0-100.0); Monocytes # (auto) 0.8 10 ^3/uL (0-1.3); Monocytes % (auto) 10.6 % (0.0-12.0); Neutrophils # (auto) 4.7 10 ^3/uL (1.6-8.6); Neutrophils % (auto) 61.1 % (37.0-80.0); Platelet Count (auto) 202 10^3/uL (140-450); Red Blood Cells 3.33 10^6/uL (4.0-5.20); Red Cell Distribution Width 15.3 % (11.8-14.3); White Blood Cell 7.7 10^3/uL (4.4-10.8)
[2024-04-13 07:44] LABS: Alanine Aminotransferase 17 U/L (7-40); Albumin 3.6 g/dL (3.2-4.8); Alkaline Phosphatase 60 U/L (46-116); Anion Gap 7 (5-15); BUN/Creatinine Ratio 10.1 (10.0-20.0); Bilirubin, Total 0.3 mg/dL (0.2-1.0); Calcium 9.6 mg/dL (8.7-10.4); Chloride 104 mmol/L (98-107); Glucose 99 mg/dL (74-106); Potassium 3.9 mmol/L (3.5-5.1); Sodium 142 mmol/L (136-145); Total Protein 6.1 g/dL (5.7-8.2)
[2024-04-13 07:45] LABS: Aspartate Aminotransferase 9 U/L (13-40); Blood Urea Nitrogen 7 mg/dL (9-23); Carbon Dioxide 31 mmol/L (20-31)
[2024-04-13] MEDS: AZITHROMYCIN 250 MG TAB PO SCH (12:08)
[2024-04-13] MEDS: FUROSEMIDE 20 MG TAB PO ONE (12:15)
[2024-04-13] MEDS: ENOXAPARIN SOD 40 MG/0.4 ML SYRINGE SC ONE (12:15)
--- NOTE | 2024-04-13 19:41 | DVHPNRES ---
Progress Note Date Seen: Apr 13, 2024 Resident Creating Document: LOUISE KING RESIDENT Has the PT tested + for MRSA If YES, has PT been informed?: No Medical Necessity Reason Pt with a Central, PICC or Fol: Yes The following are medically ne: Carreno Catheter Reason for carreno catheter: Strict I&O Objective vital signs Vital Sign Date Time Temp Pulse Resp B/P (MAP) Pulse Ox O2 Delivery O2 Flow Rate FiO2 04/13/24 18:18 73 18 98 04/13/24 18:17 Nasal Cannula* 3 32 04/13/24 17:10 99.8 132/71 (91) 99.8 Total Intake and Output 04/12/24 04/12/24 04/13/24 14:59 22:59 06:59 Intake Total 490 ml 640 ml 300 ml Output Total 600 ml 600 ml Balance 490 ml 40 ml -300 ml medications Current Medications Medications Dose Ordered Sig/[place] Route Start Time Stop Time Status Last Admin Dose Admin Acetaminophen 650 mg Q4HP PRN PO 03/24/24 00:00 04/03/24 16:21 650 MG Enoxaparin Sodium 40 mg DAILY SC 03/25/24 10:00 04/12/24 09:31 40 MG Ipratropium [place] 0.5 mg Q4HWA NEB 03/24/24 06:00 04/13/24 18:08 0.5 MG Albuterol 2.5 mg Q4HWA NEB 03/24/24 06:00 04/13/24 18:08 2.5 MG Levothyroxine Sodium 75 mcg QAM@0600 PO 03/24/24 06:00 04/13/24 06:13 75 MCG Melatonin 5 mg HS PO 03/25/24 22:00 04/12/24 21:43 5 MG Patient Own Medication 1 DAILY PO 03/30/24 10:00 UNV Lorazepam 0.5 mg Q6HP PRN PO 04/02/24 09:30 04/12/24 21:43 0.5 MG Citalopram Hydrobromide 20 mg DAILY PO 04/04/24 10:00 04/13/24 12:08 20 MG Acetaminophen/ Hydrocodone Bitart 1 tab Q6HPRN PRN PO 04/03/24 17:00 04/12/24 21:44 1 TAB Sodium Chloride 1 spr QID EACHNOSTRI 04/04/24 22:00 04/13/24 18:14 1 SPR Saccharomyces Boulardii 250 mg DAILY PO 04/04/24 20:30 04/13/24 12:08 250 MG Pantoprazole Sodium 40 mg DAILY@0600 PO 04/12/24 06:00 04/13/24 06:12 40 MG Ceftriaxone Sodium 50 ml @ 100 mls/hr DAILY@09 IV 04/12/24 09:00 04/13/24 12:28 100 MLS/HR Azithromycin 500 mg DAILY PO 04/13/24 10:00 04/13/24 12:08 500 MG Furosemide 20 mg DAILY PO 04/14/24 10:00 Examination GENERAL:Normal (Looks sick), HEENT:Normal (Oral mucosa dry and cracked , cheilitis. ), NECK:Normal, LUNGS:Abnormal (Bilateral basal rales likely due to atelectasis), CVS:Normal (Blood pressure well controlled with the MAP over 65.), ABDOMEN:Normal, MSK:Abnormal (Low muscle mass), SKIN:Abnormal (Low skin turgor), NEURO:Abnormal (Alert but not oriented x1 responding to vocal stimuli), :Abnormal (And retract tube still having brown loose stool) Left arm picc line tenderness and redness locally. laboratory and microbiology Laboratory Tests 04/13/24 07:15 Test 04/13/24 07:15 Range/Units Serum Glucose 99 74-106 mg/dL Microbiology Date/Time Source Procedure Growth Status 04/11/24 21:35 Voided Urine Urine Culture - Preliminary Resulted 04/03/24 18:00 Nasopharynx Coronavirus COVID-19 PCR ([facility]) - Final Complete 03/26/24 09:29 Nose MRSA Screen - Final Complete 03/23/24 15:56 Blood Blood Culture - Final NO GROWTH AFTER 5 DAYS OF INCUBATION. Complete Labs and/or images reviewed: Labs reviewed by me, Image(s) reviewed by me Problem List/Assessment/Plan Problem List/Assessment/Plan ICU Course: 59-year-old female with a history of hypothyroidism, hypertension, dyslipidemia, nicotine dependence, obesity, and kidney stones presented to the hospital with shortness of breath and chest pain. She had fever, chills, and body pain five days ago and was prescribed doxycycline, zinc, and vitamin D at urgent care. Her symptoms worsened, and she developed shortness of breath and chest pain two days ago. She was diagnosed with COVID-19 two days ago and reports cough, chills, fever, and generalized body pain. She denies nausea, vomiting, headache, dysuria, or recent sick contact. She has a history of appendectomy, lives with her family, is an ex-smoker, and denies other drug use. Patient was found to have acute hypoxic respiratory failure with acute respiratory distress syndrome due to multifocal pneumonia, sepsis, now patient is needing high-flow nasal cannula oxygen. Over time patient is slowly improving. Hospitalization day: 20 A. Neurology: Alert , awake AAO x3 # insomnia melatonin 5 at bedtime. # anxiety: Citalopram and Ativan continue B. Cardiology: # essential hypertension: Blood pressure normal, map over 65, heart rate sinus wnl. C. Respiratory: # acute hypoxic respiratory failure: status post BiPAP and Oxymizer now on high- flow nasal cannula titrate as tolerated, as needed albuterol status post 20 mg IV Lasix, we will try to wean down oxygen, repeat labs tomorrow, repeat chest CT noncontrast tomorrow. Can try proning. Restarted oral [address] chest consistent of multifocal peripheral pneumonia similar to COVID pattern. Continue 4 hours of CPAP/BiPAP. Unlikely to benefit from steroids on 3rd week of treatment. # multifocal pneumonia on , negative for flu and COVID, atypical pneumonia multifocal could be viral pneumonia with super sided bacterial pneumonia status post IV vanc Zosyn and azithromycin, follow up cultures, Dc vancomycin # pulmonary edema: improved, NO need to repeat chest x-ray tomorrow a.m. # elevated D-dimer: Ruled out PE and DVT # bilateral atelectasis: Continue incentive spirometry q1 hour. D. Gastrointestinal: # antibiotic associated diarrhea: on Florastor , continue E. Genitourinary: # on Carreno's catheter: close input output check, can DC Carreno's shortly # UTI resolving # Traumatic urethral injury, no further bleeding. F. Infectious Disease: # sepsis secondary due to multifocal atypical pneumonias: subsided leukocyte residual out. # extensive workup negative for HIV, pneumophila, mycoplasma, STEPHON, rheumatoid factor negative, urinalysis negative: iv antibiotics changed to oral Augmentin bid x 5 days to cover for respiratory, common skin and urine priya. G. Hematology & Oncology: #Mild anemia, likely multifactorial: Mixed iron panel. Daily CBC transfuse if Hb <7. Normocytic hypochromic #Left arm thrombophlebitis: restart DVT prophylaxis. intact vasculature. warm compress, symptomatic treatment. remove the picc line. in case needed consider new IV access. # switching medications to oral for early discharge planning. H. Nephrology: #Bilateral nonobstructive nephrolithiasis, asymptomatic I. Endocrine: # prediabetes HbA1C 5.8. weight loss likely will help # obesity # hypothyroidism: Continue levothyroxine J. MSK: # osteoarthritis # chronic back pain: as needed analgesics Tylenol/[place] # acute care myopathy: PT to continue, for now, patient is able to walk more with less disability/shortness of breath. K. Prophylaxis: PPI: IV change to oral DVT: Started Lovenox for DVT prophylaxis. L. Lines & Drains (with insertion date): Carreno's catheter we will consider to DC on since 03/26/2024 N. Disposition: Downgrade to telemetry Floor. Updated patient at bedside. The plan was discussed with the ICU attending Dr. Wheeler. The patient care consists of total 55 minutes of critical care time excluding the procedures. Plan discussed with: Patient, Other (Primary team) My Orders My Orders Orders - LOUISE KING Procedure Category Date Status Time Furosemide Tablet PHA 04/14/24 In Process (Lasix Tablet) 10:00 Communication Order ORDERS 04/13/24 Transmitted 11:15 Transfer Orders XFER 04/13/24 Transmitted 15:23 Dietary Evaluation Review Comments: Follow current diet Expected Outcomes/Goals: gradual wt loss LOUISE KING RESIDENT Apr 13, 2024 19:41
[2024-04-13] MEDS: AMOXICILLIN/CLAVUL 875 MG TAB PO SCH (21:33)
[2024-04-14] VITALS (26 sets, daily range): BP systolic 115–154; BP diastolic 61–79; PULSE 58–97; RESP 16–22; TEMP 98–99.1; O2SAT 92–99
[2024-04-14] MEDS: FUROSEMIDE 20 MG TAB PO SCH (10:36)
--- NOTE | 2024-04-14 14:24 | DVHPN2 ---
Progress Note - Dictate Date Seen: Apr 14, 2024 Has the PT tested + for MRSA If YES, has PT been informed?: No Medical Necessity Reason Pt with a Central, PICC or Fol: Yes The following are medically ne: Carreno Catheter Reason for carreno catheter: Strict I&O vital signs Vital Sign Date Time Temp Pulse Resp B/P (MAP) Pulse Ox O2 Delivery O2 Flow Rate FiO2 04/14/24 13:00 98.2 78 18 137/78 (97) 95 98.2 04/14/24 08:00 Nasal Cannula* 3 32 Total Intake and Output 04/13/24 04/13/24 04/14/24 15:00 23:00 07:00 Intake Total 240 ml 400 ml 1040 ml Output Total 400 ml 200 ml Balance 240 ml 0 ml 840 ml medications Current Medications Medications Dose Ordered Sig/Saturnino Route Start Time Stop Time Status Last Admin Dose Admin Acetaminophen 650 mg Q4HP PRN PO 03/24/24 00:00 04/03/24 16:21 650 MG Enoxaparin Sodium 40 mg DAILY SC 03/25/24 10:00 04/12/24 09:31 40 MG Ipratropium [place] 0.5 mg Q4HWA NEB 03/24/24 06:00 04/14/24 11:18 0.5 MG Albuterol 2.5 mg Q4HWA NEB 03/24/24 06:00 04/14/24 11:18 2.5 MG Levothyroxine Sodium 75 mcg QAM@0600 PO 03/24/24 06:00 04/14/24 05:33 75 MCG Melatonin 5 mg HS PO 03/25/24 22:00 04/13/24 21:34 5 MG Patient Own Medication 1 DAILY PO 03/30/24 10:00 UNV Lorazepam 0.5 mg Q6HP PRN PO 04/02/24 09:30 04/14/24 03:48 0.5 MG Citalopram Hydrobromide 20 mg DAILY PO 04/04/24 10:00 04/14/24 10:36 20 MG Acetaminophen/ Hydrocodone Bitart 1 tab Q6HPRN PRN PO 04/03/24 17:00 04/13/24 21:34 1 TAB Sodium Chloride 1 spr QID EACHNOSTRI 04/04/24 22:00 04/14/24 12:40 1 SPR Saccharomyces Boulardii 250 mg DAILY PO 04/04/24 20:30 04/14/24 11:34 250 MG Pantoprazole Sodium 40 mg DAILY@0600 PO 04/12/24 06:00 04/14/24 05:33 40 MG Ceftriaxone Sodium 50 ml @ 100 mls/hr DAILY@09 IV 04/12/24 09:00 Hold 04/13/24 12:28 100 MLS/HR Furosemide 20 mg DAILY PO 04/14/24 10:00 04/14/24 10:36 20 MG Amoxicillin/ Clavulanate Potassium 875 mg Q12HR PO 04/13/24 22:00 04/17/24 10:00 04/14/24 10:37 875 MG laboratory and microbiology Laboratory Tests 04/13/24 07:15 Test 04/13/24 07:15 Range/Units Serum Glucose 99 74-106 mg/dL Assessment/Plan # acute hypoxic respiratory failure: CHF pneumonia cont diuresis suppl 02 bronchodilators complete abx gi and dvt proph Dietary Evaluation Review Comments: Follow current diet Expected Outcomes/Goals: gradual wt loss Plan discussed with: Patient WALLY KWON MD Apr 14, 2024 14:24
--- NOTE | 2024-04-14 19:07 | DVHPN2 ---
Reviewed: Care Plan, H&P, Labs, Medications, Previous Orders, Radiology, Other (Consultation) Changes from previous H/P or p: No Changes General: Per HPI Objective Vitals Vital Signs Date Time Temp Pulse Resp B/P (MAP) Pulse Ox O2 Delivery O2 Flow Rate FiO2 04/14/24 17:40 73 18 99 04/14/24 17:34 Nasal Cannula* 2 28 04/14/24 16:53 99.0 127/61 (83) 99.0 Intake/Output Intake and Output 04/14/24 07:00 Intake Total 1680 ml Output Total 600 ml Balance 1080 ml Intake Oral 1680 ml Output Urine Total 600 ml # Voids 1 # Bowel Movements 3 General Appearance: Alert, Oriented X3, Cooperative, mild distress HEENT: Atraumatic Lungs: Other (Decreased air entry bilateral with scattered crackles ) Cardiovascular: Regular rate, Normal S1, Normal S2 Abdomen: Normal bowel sounds, Soft, No tenderness Genitourinary: Other (Quach's) Neuro: Normal speech, Cranial nerves 3-12 NL Psych/Mental Status: Mental status NL, Mood NL Medications Current Medications Medications Dose Ordered Sig/[place] Route Start Time Stop Time Status Last Admin Dose Admin Acetaminophen 650 mg Q4HP PRN PO 03/24/24 00:00 04/03/24 16:21 650 MG Enoxaparin Sodium 40 mg DAILY SC 03/25/24 10:00 04/12/24 09:31 40 MG Ipratropium [place] 0.5 mg Q4HWA NEB 03/24/24 06:00 04/14/24 17:34 0.5 MG Albuterol 2.5 mg Q4HWA NEB 03/24/24 06:00 04/14/24 17:34 2.5 MG Levothyroxine Sodium 75 mcg QAM@0600 PO 03/24/24 06:00 04/14/24 05:33 75 MCG Melatonin 5 mg HS PO 03/25/24 22:00 04/13/24 21:34 5 MG Patient Own Medication 1 DAILY PO 03/30/24 10:00 UNV Lorazepam 0.5 mg Q6HP PRN PO 04/02/24 09:30 04/14/24 03:48 0.5 MG Citalopram Hydrobromide 20 mg DAILY PO 04/04/24 10:00 04/14/24 10:36 20 MG Acetaminophen/ Hydrocodone Bitart 1 tab Q6HPRN PRN PO 04/03/24 17:00 04/13/24 21:34 1 TAB Sodium Chloride 1 spr QID EACHNOSTRI 04/04/24 22:00 04/14/24 12:40 1 SPR Saccharomyces Boulardii 250 mg DAILY PO 04/04/24 20:30 04/14/24 11:34 250 MG Pantoprazole Sodium 40 mg DAILY@0600 PO 04/12/24 06:00 04/14/24 05:33 40 MG Ceftriaxone Sodium 50 ml @ 100 mls/hr DAILY@09 IV 04/12/24 09:00 Hold 04/13/24 12:28 100 MLS/HR Furosemide 20 mg DAILY PO 04/14/24 10:00 04/14/24 10:36 20 MG Amoxicillin/ Clavulanate Potassium 875 mg Q12HR PO 04/13/24 22:00 04/17/24 10:00 04/14/24 10:37 875 MG Laboratory Results Laboratory Tests 04/13/24 07:15 Urinalysis Test 03/23/24 20:55 04/11/24 21:35 Urine Test Negative (Negative) Urine Color Light-brown (Yellow) Urine Clarity Turbid (Clear) H Urine pH 6.5 (5.0-9.0) Urine Specific [place] 1.019 (1.001-1.035) Urine Protein Trace (Negative) H Urine Ketones Trace (Negative) Urine Blood 3+ /uL (Negative) H Urine Nitrite Negative (Negative) Urine Bilirubin Negative (Negative) Urine Urobilinogen Normal mg/dL (Negative) Urine Leukocyte Esterase 1+ /uL (Negative) Urine RBC 1359 /hpf (0 - 4) Urine Microscopic WBC 79 /HPF (0-5) H Urine Squamous Epithelial Cells None seen /hpf (<5) Urine Calcium Oxalate Crystals Few (None Seen) Urine Bacteria None seen /hpf (None Seen) Urine Glucose Normal mg/dL (Normal) Microbiology Microbiology Date/Time Source Procedure Growth Status 04/11/24 21:35 Voided Urine Urine Culture - Final Complete 04/03/24 18:00 Nasopharynx Coronavirus COVID-19 PCR ([facility]) - Final Complete 03/26/24 09:29 Nose MRSA Screen - Final Complete 03/23/24 15:56 Blood Blood Culture - Final NO GROWTH AFTER 5 DAYS OF INCUBATION. Complete Labs and/or images reviewed: Labs reviewed by me, Image(s) reviewed by me Assessment/Plan Assessment/Plan # insomnia melatonin 5 at bedtime. # anxiety: Citalopram and Ativan continue # essential hypertension: Blood pressure normal, map over 65, heart rate sinus wnl. # acute hypoxic respiratory failure: status post BiPAP and Oxymizer now on high- flow nasal cannula titrate as tolerated, as needed albuterol status post 20 mg IV Lasix, we will try to wean down oxygen, repeat labs tomorrow, repeat chest CT noncontrast tomorrow. Can try proning. Restarted oral [address] chest consistent of multifocal peripheral pneumonia similar to COVID pattern. Continue 4 hours of CPAP/BiPAP. Unlikely to benefit from steroids on 3rd week of treatment. # multifocal pneumonia on , negative for flu and COVID, atypical pneumonia multifocal could be viral pneumonia with super sided bacterial pneumonia status post IV vanc Zosyn and azithromycin, follow up cultures, Dc vancomycin # pulmonary edema: improved, NO need to repeat chest x-ray tomorrow a.m. # elevated D-dimer: Ruled out PE and DVT # bilateral atelectasis: Continue incentive spirometry q1 hour. # antibiotic associated diarrhea: on Florastor , continue # on Quach's catheter: close input output check, can DC Quach's shortly # UTI resolving # Traumatic urethral injury, no further bleeding. # sepsis secondary due to multifocal atypical pneumonias: subsided leukocyte residual out. # extensive workup negative for HIV, pneumophila, mycoplasma, STEPHON, rheumatoid factor negative, urinalysis negative: iv antibiotics changed to oral Augmentin bid x 5 days to cover for respiratory, common skin and urine priya. #Mild anemia, likely multifactorial: Mixed iron panel. Daily CBC transfuse if Hb <7. Normocytic hypochromic #Left arm thrombophlebitis: restart DVT prophylaxis. intact vasculature. warm compress, symptomatic treatment. remove the picc line. in case needed consider new IV access. # switching medications to oral for early discharge planning. #Bilateral nonobstructive nephrolithiasis, asymptomatic # prediabetes HbA1C 5.8. weight loss likely will help # obesity # hypothyroidism: Continue levothyroxine # osteoarthritis # chronic back pain: as needed analgesics Tylenol/[place] # acute care myopathy: PT to continue, for now, patient is able to walk more with less disability/shortness of breath. 04/14/2024: persistent bacteremia continue with IV ABx Plan discussed with: Patient Date of Service: Apr 14, 2024 Billing Provider: CLIFFORD OROURKE DO Common Visit Codes: [id number] INP/OBS CARE(HIGH) CLIFFORD OROURKE DO Apr 14, 2024 19:07
--- NOTE | 2024-04-14 19:13 | DVHPN2 ---
Reviewed: Care Plan, H&P, Labs, Medications, Previous Orders, Radiology, Other (Consultation) Changes from previous H/P or p: No Changes General: Per HPI Objective Vitals Vital Signs Date Time Temp Pulse Resp B/P (MAP) Pulse Ox O2 Delivery O2 Flow Rate FiO2 04/14/24 17:40 73 18 99 04/14/24 17:34 Nasal Cannula* 2 28 04/14/24 16:53 99.0 127/61 (83) 99.0 Intake/Output Intake and Output 04/14/24 07:00 Intake Total 1680 ml Output Total 600 ml Balance 1080 ml Intake Oral 1680 ml Output Urine Total 600 ml # Voids 1 # Bowel Movements 3 General Appearance: Alert, Oriented X3, Cooperative, mild distress HEENT: Atraumatic Lungs: Other (Decreased air entry bilateral with scattered crackles ) Cardiovascular: Regular rate, Normal S1, Normal S2 Abdomen: Normal bowel sounds, Soft, No tenderness Genitourinary: Other (Quach's) Neuro: Normal speech, Cranial nerves 3-12 NL Psych/Mental Status: Mental status NL, Mood NL Medications Current Medications Medications Dose Ordered Sig/[place] Route Start Time Stop Time Status Last Admin Dose Admin Acetaminophen 650 mg Q4HP PRN PO 03/24/24 00:00 04/03/24 16:21 650 MG Enoxaparin Sodium 40 mg DAILY SC 03/25/24 10:00 04/12/24 09:31 40 MG Ipratropium [place] 0.5 mg Q4HWA NEB 03/24/24 06:00 04/14/24 17:34 0.5 MG Albuterol 2.5 mg Q4HWA NEB 03/24/24 06:00 04/14/24 17:34 2.5 MG Levothyroxine Sodium 75 mcg QAM@0600 PO 03/24/24 06:00 04/14/24 05:33 75 MCG Melatonin 5 mg HS PO 03/25/24 22:00 04/13/24 21:34 5 MG Patient Own Medication 1 DAILY PO 03/30/24 10:00 UNV Lorazepam 0.5 mg Q6HP PRN PO 04/02/24 09:30 04/14/24 03:48 0.5 MG Citalopram Hydrobromide 20 mg DAILY PO 04/04/24 10:00 04/14/24 10:36 20 MG Acetaminophen/ Hydrocodone Bitart 1 tab Q6HPRN PRN PO 04/03/24 17:00 04/13/24 21:34 1 TAB Sodium Chloride 1 spr QID EACHNOSTRI 04/04/24 22:00 04/14/24 12:40 1 SPR Saccharomyces Boulardii 250 mg DAILY PO 04/04/24 20:30 04/14/24 11:34 250 MG Pantoprazole Sodium 40 mg DAILY@0600 PO 04/12/24 06:00 04/14/24 05:33 40 MG Ceftriaxone Sodium 50 ml @ 100 mls/hr DAILY@09 IV 04/12/24 09:00 Hold 04/13/24 12:28 100 MLS/HR Furosemide 20 mg DAILY PO 04/14/24 10:00 04/14/24 10:36 20 MG Amoxicillin/ Clavulanate Potassium 875 mg Q12HR PO 04/13/24 22:00 04/17/24 10:00 04/14/24 10:37 875 MG Laboratory Results Laboratory Tests 04/13/24 07:15 Urinalysis Test 03/23/24 20:55 04/11/24 21:35 Urine Test Negative (Negative) Urine Color Light-brown (Yellow) Urine Clarity Turbid (Clear) H Urine pH 6.5 (5.0-9.0) Urine Specific [place] 1.019 (1.001-1.035) Urine Protein Trace (Negative) H Urine Ketones Trace (Negative) Urine Blood 3+ /uL (Negative) H Urine Nitrite Negative (Negative) Urine Bilirubin Negative (Negative) Urine Urobilinogen Normal mg/dL (Negative) Urine Leukocyte Esterase 1+ /uL (Negative) Urine RBC 1359 /hpf (0 - 4) Urine Microscopic WBC 79 /HPF (0-5) H Urine Squamous Epithelial Cells None seen /hpf (<5) Urine Calcium Oxalate Crystals Few (None Seen) Urine Bacteria None seen /hpf (None Seen) Urine Glucose Normal mg/dL (Normal) Microbiology Microbiology Date/Time Source Procedure Growth Status 04/11/24 21:35 Voided Urine Urine Culture - Final Complete 04/03/24 18:00 Nasopharynx Coronavirus COVID-19 PCR ([facility]) - Final Complete 03/26/24 09:29 Nose MRSA Screen - Final Complete 03/23/24 15:56 Blood Blood Culture - Final NO GROWTH AFTER 5 DAYS OF INCUBATION. Complete Assessment/Plan Assessment/Plan # insomnia melatonin 5 at bedtime. # anxiety: Citalopram and Ativan continue # essential hypertension: Blood pressure normal, map over 65, heart rate sinus wnl. # acute hypoxic respiratory failure: status post BiPAP and Oxymizer now on high- flow nasal cannula titrate as tolerated, as needed albuterol status post 20 mg IV Lasix, we will try to wean down oxygen, repeat labs tomorrow, repeat chest CT noncontrast tomorrow. Can try proning. Restarted oral [address] chest consistent of multifocal peripheral pneumonia similar to COVID pattern. Continue 4 hours of CPAP/BiPAP. Unlikely to benefit from steroids on 3rd week of treatment. # multifocal pneumonia on , negative for flu and COVID, atypical pneumonia multifocal could be viral pneumonia with super sided bacterial pneumonia status post IV vanc Zosyn and azithromycin, follow up cultures, Dc vancomycin # pulmonary edema: improved, NO need to repeat chest x-ray tomorrow a.m. # elevated D-dimer: Ruled out PE and DVT # bilateral atelectasis: Continue incentive spirometry q1 hour. # antibiotic associated diarrhea: on Florastor , continue # on Quach's catheter: close input output check, can DC Quach's shortly # UTI resolving # Traumatic urethral injury, no further bleeding. # sepsis secondary due to multifocal atypical pneumonias: subsided leukocyte residual out. # extensive workup negative for HIV, pneumophila, mycoplasma, STEPHON, rheumatoid factor negative, urinalysis negative: iv antibiotics changed to oral Augmentin bid x 5 days to cover for respiratory, common skin and urine priya. #Mild anemia, likely multifactorial: Mixed iron panel. Daily CBC transfuse if Hb <7. Normocytic hypochromic #Left arm thrombophlebitis: restart DVT prophylaxis. intact vasculature. warm compress, symptomatic treatment. remove the picc line. in case needed consider new IV access. # switching medications to oral for early discharge planning. #Bilateral nonobstructive nephrolithiasis, asymptomatic # prediabetes HbA1C 5.8. weight loss likely will help # obesity # hypothyroidism: Continue levothyroxine # osteoarthritis # chronic back pain: as needed analgesics Tylenol/[place] # acute care myopathy: PT to continue, for now, patient is able to walk more with less disability/shortness of breath. 04/14/2024 will dyspneic continue with iv Abx Pt/OT as appropriate Plan discussed with: Patient Date of Service: Apr 14, 2024 Billing Provider: CLIFFORD OROURKE DO Common Visit Codes: [id number] INP/OBS CARE(HIGH) CLIFFORD OROURKE DO Apr 14, 2024 19:13
[2024-04-15] VITALS (25 sets, daily range): BP systolic 111–157; BP diastolic 51–87; PULSE 63–109; RESP 16–20; TEMP 97.6–98.6; O2SAT 91–100
--- NOTE | 2024-04-15 12:38 | DVHPN2 ---
Progress Note - Dictate Date Seen: Apr 15, 2024 Has the PT tested + for MRSA If YES, has PT been informed?: No Medical Necessity Reason Pt with a Central, PICC or Fol: Yes The following are medically ne: Carreno Catheter Reason for carreno catheter: Strict I&O vital signs Vital Sign Date Time Temp Pulse Resp B/P (MAP) Pulse Ox O2 Delivery O2 Flow Rate FiO2 04/15/24 11:45 16 93 Nasal Cannula* 3 32 04/15/24 10:13 78 04/15/24 09:20 118/73 04/15/24 09:00 98.4 98.4 Total Intake and Output 04/14/24 04/14/24 04/15/24 15:00 23:00 07:00 Intake Total 2450 ml Output Total 600 ml Balance 1850 ml medications Current Medications Medications Dose Ordered Sig/[place] Route Start Time Stop Time Status Last Admin Dose Admin Acetaminophen 650 mg Q4HP PRN PO 03/24/24 00:00 04/03/24 16:21 650 MG Enoxaparin Sodium 40 mg DAILY SC 03/25/24 10:00 04/12/24 09:31 40 MG Ipratropium [place] 0.5 mg Q4HWA NEB 03/24/24 06:00 04/15/24 10:07 0.5 MG Albuterol 2.5 mg Q4HWA NEB 03/24/24 06:00 04/15/24 10:07 2.5 MG Levothyroxine Sodium 75 mcg QAM@0600 PO 03/24/24 06:00 04/15/24 05:55 75 MCG Melatonin 5 mg HS PO 03/25/24 22:00 04/14/24 21:48 5 MG Patient Own Medication 1 DAILY PO 03/30/24 10:00 UNV Lorazepam 0.5 mg Q6HP PRN PO 04/02/24 09:30 04/14/24 22:46 0.5 MG Citalopram Hydrobromide 20 mg DAILY PO 04/04/24 10:00 04/15/24 09:19 20 MG Acetaminophen/ Hydrocodone Bitart 1 tab Q6HPRN PRN PO 04/03/24 17:00 04/14/24 21:49 1 TAB Sodium Chloride 1 spr QID EACHNOSTRI 04/04/24 22:00 04/15/24 11:46 1 SPR Saccharomyces Boulardii 250 mg DAILY PO 04/04/24 20:30 04/15/24 09:20 250 MG Pantoprazole Sodium 40 mg DAILY@0600 PO 04/12/24 06:00 04/15/24 05:55 40 MG Ceftriaxone Sodium 50 ml @ 100 mls/hr DAILY@09 IV 04/12/24 09:00 Hold 04/13/24 12:28 100 MLS/HR Furosemide 20 mg DAILY PO 04/14/24 10:00 04/15/24 09:20 20 MG Amoxicillin/ Clavulanate Potassium 875 mg Q12HR PO 04/13/24 22:00 04/17/24 10:00 04/15/24 09:19 875 MG laboratory and microbiology Laboratory Tests 04/13/24 07:15 Test 04/13/24 07:15 Range/Units Serum Glucose 99 74-106 mg/dL Assessment/Plan # acute hypoxic respiratory failure: CHF pneumonia cont diuresis suppl 02 bronchodilators complete abx gi and dvt proph Dietary Evaluation Review Comments: Follow current diet Expected Outcomes/Goals: gradual wt loss Plan discussed with: Patient WALLY KWON MD Apr 15, 2024 12:38
--- NOTE | 2024-04-15 14:29 | DVHPN2 ---
Reviewed: Care Plan, H&P, Labs, Medications, Previous Orders, Radiology, Other (Consultation) Changes from previous H/P or p: No Changes General: Per HPI Objective Vitals Vital Signs Date Time Temp Pulse Resp B/P (MAP) Pulse Ox O2 Delivery O2 Flow Rate FiO2 04/15/24 14:08 92 Nasal Cannula 2.0 04/15/24 14:08 28 04/15/24 14:08 87 18 04/15/24 13:00 98.6 128/80 (96) 98.6 Intake/Output Intake and Output 04/15/24 07:00 Intake Total 2450 ml Output Total 600 ml Balance 1850 ml Intake Oral 2450 ml Output Urine Total 600 ml # Bowel Movements 2 General Appearance: Alert, Oriented X3, Cooperative, mild distress HEENT: Atraumatic Lungs: Other (Decreased air entry bilateral with scattered crackles ) Cardiovascular: Regular rate, Normal S1, Normal S2 Abdomen: Normal bowel sounds, Soft, No tenderness Genitourinary: Other (Quach's) Neuro: Normal speech, Cranial nerves 3-12 NL Psych/Mental Status: Mental status NL, Mood NL Medications Current Medications Medications Dose Ordered Sig/[place] Route Start Time Stop Time Status Last Admin Dose Admin Acetaminophen 650 mg Q4HP PRN PO 03/24/24 00:00 04/03/24 16:21 650 MG Enoxaparin Sodium 40 mg DAILY SC 03/25/24 10:00 04/12/24 09:31 40 MG Ipratropium [place] 0.5 mg Q4HWA NEB 03/24/24 06:00 04/15/24 14:08 0.5 MG Albuterol 2.5 mg Q4HWA NEB 03/24/24 06:00 04/15/24 14:08 2.5 MG Levothyroxine Sodium 75 mcg QAM@0600 PO 03/24/24 06:00 04/15/24 05:55 75 MCG Melatonin 5 mg HS PO 03/25/24 22:00 04/14/24 21:48 5 MG Patient Own Medication 1 DAILY PO 03/30/24 10:00 UNV Lorazepam 0.5 mg Q6HP PRN PO 04/02/24 09:30 04/14/24 22:46 0.5 MG Citalopram Hydrobromide 20 mg DAILY PO 04/04/24 10:00 04/15/24 09:19 20 MG Acetaminophen/ Hydrocodone Bitart 1 tab Q6HPRN PRN PO 04/03/24 17:00 04/14/24 21:49 1 TAB Sodium Chloride 1 spr QID EACHNOSTRI 04/04/24 22:00 04/15/24 11:46 1 SPR Saccharomyces Boulardii 250 mg DAILY PO 04/04/24 20:30 04/15/24 09:20 250 MG Pantoprazole Sodium 40 mg DAILY@0600 PO 04/12/24 06:00 04/15/24 05:55 40 MG Ceftriaxone Sodium 50 ml @ 100 mls/hr DAILY@09 IV 04/12/24 09:00 Hold 04/13/24 12:28 100 MLS/HR Furosemide 20 mg DAILY PO 04/14/24 10:00 04/15/24 09:20 20 MG Amoxicillin/ Clavulanate Potassium 875 mg Q12HR PO 04/13/24 22:00 04/17/24 10:00 04/15/24 09:19 875 MG Laboratory Results Laboratory Tests 04/13/24 07:15 Urinalysis Test 03/23/24 20:55 04/11/24 21:35 Urine Test Negative (Negative) Urine Color Light-brown (Yellow) Urine Clarity Turbid (Clear) H Urine pH 6.5 (5.0-9.0) Urine Specific [place] 1.019 (1.001-1.035) Urine Protein Trace (Negative) H Urine Ketones Trace (Negative) Urine Blood 3+ /uL (Negative) H Urine Nitrite Negative (Negative) Urine Bilirubin Negative (Negative) Urine Urobilinogen Normal mg/dL (Negative) Urine Leukocyte Esterase 1+ /uL (Negative) Urine RBC 1359 /hpf (0 - 4) Urine Microscopic WBC 79 /HPF (0-5) H Urine Squamous Epithelial Cells None seen /hpf (<5) Urine Calcium Oxalate Crystals Few (None Seen) Urine Bacteria None seen /hpf (None Seen) Urine Glucose Normal mg/dL (Normal) Microbiology Microbiology Date/Time Source Procedure Growth Status 04/11/24 21:35 Voided Urine Urine Culture - Final Complete 04/03/24 18:00 Nasopharynx Coronavirus COVID-19 PCR ([facility]) - Final Complete 03/26/24 09:29 Nose MRSA Screen - Final Complete 03/23/24 15:56 Blood Blood Culture - Final NO GROWTH AFTER 5 DAYS OF INCUBATION. Complete Assessment/Plan Assessment/Plan # insomnia melatonin 5 at bedtime. # anxiety: Citalopram and Ativan continue # essential hypertension: Blood pressure normal, map over 65, heart rate sinus wnl. # acute hypoxic respiratory failure: status post BiPAP and Oxymizer now on high- flow nasal cannula titrate as tolerated, as needed albuterol status post 20 mg IV Lasix, we will try to wean down oxygen, repeat labs tomorrow, repeat chest CT noncontrast tomorrow. Can try proning. Restarted oral [address] chest consistent of multifocal peripheral pneumonia similar to COVID pattern. Continue 4 hours of CPAP/BiPAP. Unlikely to benefit from steroids on 3rd week of treatment. # multifocal pneumonia on , negative for flu and COVID, atypical pneumonia multifocal could be viral pneumonia with super sided bacterial pneumonia status post IV vanc Zosyn and azithromycin, follow up cultures, Dc vancomycin # pulmonary edema: improved, NO need to repeat chest x-ray tomorrow a.m. # elevated D-dimer: Ruled out PE and DVT # bilateral atelectasis: Continue incentive spirometry q1 hour. # antibiotic associated diarrhea: on Florastor , continue # on Quach's catheter: close input output check, can DC Quach's shortly # UTI resolving # Traumatic urethral injury, no further bleeding. # sepsis secondary due to multifocal atypical pneumonias: subsided leukocyte residual out. # extensive workup negative for HIV, pneumophila, mycoplasma, STEPHON, rheumatoid factor negative, urinalysis negative: iv antibiotics changed to oral Augmentin bid x 5 days to cover for respiratory, common skin and urine priya. #Mild anemia, likely multifactorial: Mixed iron panel. Daily CBC transfuse if Hb <7. Normocytic hypochromic #Left arm thrombophlebitis: restart DVT prophylaxis. intact vasculature. warm compress, symptomatic treatment. remove the picc line. in case needed consider new IV access. # switching medications to oral for early discharge planning. #Bilateral nonobstructive nephrolithiasis, asymptomatic # prediabetes HbA1C 5.8. weight loss likely will help # obesity # hypothyroidism: Continue levothyroxine # osteoarthritis # chronic back pain: as needed analgesics Tylenol/[place] # acute care myopathy: PT to continue, for now, patient is able to walk more with less disability/shortness of breath. 04/14/2024 still dyspneic continue with iv Abx Pt/OT as appropriate 04/15/2024: improved, on 2-3 liters needs home O2 (requested for home O2) when home O2 is available by tomorrow, discharge pt agrees and excited to be discharged to home PT at bedside Plan discussed with: Patient My Orders Orders - CLIFFORD OROURKE DO Procedure Category Date Status Time Pt Request For Service PT 04/14/24 Logged 19:13 * Water Resource Project Manager CONS 04/15/24 Transmitted Consult Date of Service: Apr 15, 2024 Billing Provider: CLIFFORD OROURKE DO Common Visit Codes: [id number] INP/OBS CARE(HIGH) CLIFFORD OROURKE DO Apr 15, 2024 14:29
[2024-04-16] VITALS (21 sets, daily range): BP systolic 111–139; BP diastolic 64–85; PULSE 61–109; RESP 16–20; TEMP 97.7–98.9; O2SAT 91–100
--- NOTE | 2024-04-16 08:36 | DVHPNRES ---
Progress Note Date Seen: Apr 16, 2024 Resident Creating Document: LOUISE KING RESIDENT Has the PT tested + for MRSA If YES, has PT been informed?: No Medical Necessity Reason Pt with a Central, PICC or Fol: Yes The following are medically ne: Carreno Catheter Reason for carreno catheter: Strict I&O Objective vital signs Vital Sign Date Time Temp Pulse Resp B/P (MAP) Pulse Ox O2 Delivery O2 Flow Rate FiO2 04/16/24 07:18 95 Nasal Cannula* 1 24 04/16/24 07:18 61 18 04/16/24 05:00 97.9 118/69 (85) 97.9 Total Intake and Output 04/15/24 04/15/24 04/16/24 15:00 23:00 07:00 Intake Total 414 ml 724 ml Output Total 1 ml Balance 414 ml 723 ml medications Current Medications Medications Dose Ordered Sig/[place] Route Start Time Stop Time Status Last Admin Dose Admin Acetaminophen 650 mg Q4HP PRN PO 03/24/24 00:00 04/03/24 16:21 650 MG Enoxaparin Sodium 40 mg DAILY SC 03/25/24 10:00 04/12/24 09:31 40 MG Ipratropium [place] 0.5 mg Q4HWA NEB 03/24/24 06:00 04/16/24 07:18 0.5 MG Albuterol 2.5 mg Q4HWA NEB 03/24/24 06:00 04/16/24 07:18 2.5 MG Levothyroxine Sodium 75 mcg QAM@0600 PO 03/24/24 06:00 04/16/24 05:26 75 MCG Melatonin 5 mg HS PO 03/25/24 22:00 04/15/24 21:32 5 MG Patient Own Medication 1 DAILY PO 03/30/24 10:00 UNV Lorazepam 0.5 mg Q6HP PRN PO 04/02/24 09:30 04/15/24 22:18 0.5 MG Citalopram Hydrobromide 20 mg DAILY PO 04/04/24 10:00 04/15/24 09:19 20 MG Sodium Chloride 1 spr QID EACHNOSTRI 04/04/24 22:00 04/16/24 05:27 1 SPR Saccharomyces Boulardii 250 mg DAILY PO 04/04/24 20:30 04/15/24 09:20 250 MG Pantoprazole Sodium 40 mg DAILY@0600 PO 04/12/24 06:00 04/16/24 05:26 40 MG Furosemide 20 mg DAILY PO 04/14/24 10:00 04/15/24 09:20 20 MG Amoxicillin/ Clavulanate Potassium 875 mg Q12HR PO 04/13/24 22:00 04/17/24 10:00 04/15/24 21:34 875 MG Examination GENERAL:Normal (Looks sick), HEENT:Normal (Oral mucosa dry and cracked , cheilitis. ), NECK:Normal, LUNGS:Abnormal (Bilateral basal rales likely due to atelectasis), CVS:Normal (Blood pressure well controlled with the MAP over 65.), ABDOMEN:Normal, MSK:Abnormal (Low muscle mass), SKIN:Abnormal (Low skin turgor), NEURO:Abnormal (Alert but not oriented x1 responding to vocal stimuli), :Abnormal (And retract tube still having brown loose stool) Left arm picc line tenderness and redness locally. laboratory and microbiology Laboratory Tests 04/13/24 07:15 Test 04/13/24 07:15 Range/Units Serum Glucose 99 74-106 mg/dL Microbiology Date/Time Source Procedure Growth Status 04/11/24 21:35 Voided Urine Urine Culture - Final Complete 04/03/24 18:00 Nasopharynx Coronavirus COVID-19 PCR ([facility]) - Final Complete 03/26/24 09:29 Nose MRSA Screen - Final Complete 03/23/24 15:56 Blood Blood Culture - Final NO GROWTH AFTER 5 DAYS OF INCUBATION. Complete Labs and/or images reviewed: Labs reviewed by me, Image(s) reviewed by me Problem List/Assessment/Plan Problem List/Assessment/Plan Hospital Course: 59-year-old female with a history of hypothyroidism, hypertension, dyslipidemia, nicotine dependence, obesity, and kidney stones presented to the hospital with shortness of breath and chest pain. She had fever, chills, and body pain five days ago and was prescribed doxycycline, zinc, and vitamin D at urgent care. Her symptoms worsened, and she developed shortness of breath and chest pain two days ago. She was diagnosed with COVID-19 two days ago and reports cough, chills, fever, and generalized body pain. She denies nausea, vomiting, headache, dysuria, or recent sick contact. She has a history of appendectomy, lives with her family, is an ex-smoker, and denies other drug use. Patient was found to have acute hypoxic respiratory failure with acute respiratory distress syndrome due to multifocal pneumonia, sepsis, now patient is needing high-flow nasal cannula oxygen. Over time patient is slowly improving, patient is now on floor level of care. Hospitalization day: 23 Medical Conditions Treated in Hospital: # insomnia melatonin 5 at bedtime. # anxiety: Citalopram and Ativan continue # essential hypertension: Blood pressure normal, map over 65, heart rate sinus wnl. # acute hypoxic respiratory failure: Continue oral 20 mg daily Lasix. Continue 4 hours of CPAP/BiPAP. Proning. # multifocal pneumonia on , negative for flu and COVID: on augmentin 4/5 days oral. # pulmonary edema: improved. # elevated D-dimer: Ruled out PE and DVT # bilateral atelectasis: Continue incentive spirometry q1 hour. # antibiotic associated diarrhea: on Florastor dc tomorrow. # UTI resolving: dc abx tomoroow. # Traumatic urethral injury, no further bleeding. # sepsis secondary due to multifocal atypical pneumonias: subsided leukocytosis. # extensive workup negative for HIV, pneumophila, mycoplasma, STEPHON, rheumatoid factor negative, urinalysis negative: iv antibiotics changed to oral Augmentin bid x 5 days to cover for respiratory, common skin and urine priya. #Mild anemia, likely multifactorial: Mixed iron panel. Daily CBC transfuse if Hb <7. Normocytic hypochromic #Left arm thrombophlebitis: remove the picc line. s/p DVT prophylaxis. intact vasculature. warm compress, symptomatic treatment. switching medications to oral for early discharge planning. #Bilateral nonobstructive nephrolithiasis, asymptomatic # prediabetes HbA1C 5.8. weight loss likely will help # obesity # hypothyroidism: Continue levothyroxine # osteoarthritis # chronic back pain: as needed analgesics Tylenol/[place] # acute care myopathy: PT to continue, for now, patient is able to walk more with less disability/shortness of breath. Needs rolling walker DME ordered. Disposition: Keep on telemetry floor for SPO2. Updated patient at bedside. Possible discharge within 48 hours back to home with DME rolling walker. Not eligible for home oxygen unfortunately. We will review tomorrow. The plan was discussed with the ICU attending Dr. Estrada. Code status: Full code. The patient care consists of total 37 minutes of care time. Plan discussed with: Patient, Other My Orders My Orders Orders - LOUISE KING Procedure Category Date Status Time Complete Blood Count LAB 04/16/24 Logged 08:17 Comprehensive LAB 04/16/24 Logged Metabolic Panel 08:17 Abg W/ Co-Ox RT 04/16/24 Logged 08:18 Dietary Evaluation Review Comments: Follow current diet Expected Outcomes/Goals: gradual wt loss Date of Service: Apr 16, 2024 Billing Provider: LISA ESTRADA MD Common Visit Codes: 08255-QZJ/OBS DISCH DAY >30min LOUISE KING Apr 16, 2024 08:36 LISA ESTRADA MD Apr 17, 2024 14:32
[2024-04-16 09:42] LABS: Base Excess 2.9 mmol/L (-2.0-3.0)
[2024-04-16 10:59] LABS: Basophils # (auto) 0.1 10 ^3/uL (0-0.2); Basophils % (auto) 1.2 % (0.0-2.0); Eosinophils # (auto) 0.7 10 ^3/uL (0-0.8); Hematocrit 33.3 % (36.0-46.0); Hemoglobin 10.9 g/dL (12.2-16.2); Lymphocytes % (auto) 14.2 % (10.0-50.0); Mean Corpuscular Hemoglobin 29.9 pg (28.0-32.0); Mean Corpuscular Hgb Conc. 32.7 g/dL (32.0-36.0); Mean Corpuscular Volume 91.4 fL (80.0-100.0); Monocytes # (auto) 0.6 10 ^3/uL (0-1.3); Monocytes % (auto) 8.4 % (0.0-12.0); Neutrophils % (auto) 67.2 % (37.0-80.0); Nucleated Red Blood Cells % 0.1 %; Platelet Count (auto) 283 10^3/uL (140-450); Red Blood Cells 3.65 10^6/uL (4.0-5.20); White Blood Cell 7.4 10^3/uL (4.4-10.8)
[2024-04-16 12:23] LABS: Anion Gap 10 (5-15)
[2024-04-16 12:25] LABS: Calcium 10.4 mg/dL (8.7-10.4); Carbon Dioxide 27 mmol/L (20-31); Chloride 103 mmol/L (98-107); Potassium 3.9 mmol/L (3.5-5.1); Sodium 140 mmol/L (136-145)
[2024-04-16 12:28] LABS: BUN/Creatinine Ratio 10.4 (10.0-20.0)
[2024-04-16 12:36] LABS: Alanine Aminotransferase 19 U/L (7-40); Albumin 4.2 g/dL (3.2-4.8); Alkaline Phosphatase 70 U/L (46-116); Aspartate Aminotransferase 13 U/L (13-40); Bilirubin, Total 0.4 mg/dL (0.2-1.0); Blood Urea Nitrogen 7 mg/dL (9-23); Glucose 86 mg/dL (74-106)
[2024-04-17] VITALS (16 sets, daily range): BP systolic 101–127; BP diastolic 51–73; PULSE 65–96; RESP 16–19; TEMP 98.1–99; O2SAT 91–100
[2024-04-17] MEDS ORDERED: FUROSEMIDE 20 MG TAB PO SCH (09:30)
[2024-04-17] MEDS: FUROSEMIDE 20 MG TAB PO ONE (12:31)
--- NOTE | 2024-04-17 13:45 | DVHDSRES ---
Discharge Summary Date of Admission Resident Creating Document: FERNANDO,LOUISE RESIDENT Mar 23, 2024 at 22:42 Date of Discharge: Apr 17, 2024 Admitting Diagnosis Acute hypoxic respiratory failure. Labs/Diagnostic Data: Laboratory Results Test 04/17/24 12:17 04/16/24 09:36 04/16/24 09:29 04/11/24 21:35 Blood Gas Specimen Type Arterial Blood Gas Sample Site Left radial Blood Gas Patient Temperature 37.0 Arterial Blood Date Drawn [id number] Arterial Blood pH 7.528 (7.350-7.450) Arterial Blood Partial Pressure CO2 25.0 mmHg (32.0-45.0) Arterial Blood Partial Pressure O2 48.4 mmHg (83.0-108.0) Arterial Blood HCO3 20.3 mmol/L (21.0-28.0) Arterial Blood Oxygen Saturation 87.2 % (94.0-98.0) Arterial Blood Base Excess -1.0 mmol/L (-2.0-3.0) Arterial Blood Oxyhemoglobin 86.3 % (94.0-98.0) Arterial Blood Carboxyhemoglobin 0.9 % (0.5-1.5) Arterial Blood Methemoglobin 0.1 % (0.0-1.5) Mitch Test Yes Blood Gas Total Hemoglobin 12.40 g/dL (12.0-16.0) Blood Gas Modality Room air FiO2 % 21.0 Blood Gas Critical Value Read Back Yes Blood Gas Notified Whom cosme King md Blood Gas Notified Time [id number] Blood Gas Notified By cherelle Todd Blood Gas Liter Flow 0.00 White Blood Count 7.4 10^3/uL (4.4-10.8) Red Blood Count 3.65 10^6/uL (4.0-5.20) Hemoglobin 10.9 g/dL (12.2-16.2) Hematocrit 33.3 % (36.0-46.0) Mean Corpuscular Volume 91.4 fL (80.0-100.0) Mean Corpuscular Hemoglobin 29.9 pg (28.0-32.0) Mean Corpuscular Hemoglobin Concent 32.7 g/dL (32.0-36.0) Red Cell Distribution Width 16.0 % (11.8-14.3) Platelet Count 283 10^3/uL (140-450) Mean Platelet Volume 6.9 fL (6.9-10.8) Neutrophils (%) (Auto) 67.2 % (37.0-80.0) Lymphocytes (%) (Auto) 14.2 % (10.0-50.0) Monocytes (%) (Auto) 8.4 % (0.0-12.0) Eosinophils (%) (Auto) 9.0 % (0.0-7.0) Basophils (%) (Auto) 1.2 % (0.0-2.0) Neutrophils # (Auto) 5.0 10 ^3/uL (1.6-8.6) Lymphocytes # (Auto) 1.0 10 ^3/uL (0.4-5.4) Monocytes # (Auto) 0.6 10 ^3/uL (0-1.3) Eosinophils # (Auto) 0.7 10 ^3/uL (0-0.8) Basophils # (Auto) 0.1 10 ^3/uL (0-0.2) Nucleated Red Blood Cells 0.1 % Sodium Level 140 mmol/L (136-145) Potassium Level 3.9 mmol/L (3.5-5.1) Chloride Level 103 mmol/L (98-107) Carbon Dioxide Level 27 mmol/L (20-31) Anion Gap 10 (5-15) Blood Urea Nitrogen 7 mg/dL (9-23) Creatinine 0.67 mg/dL (0.550-1.02) Glomerular Filtration Rate Calc 100 mL/min (>90) BUN/Creatinine Ratio 10.4 (10.0-20.0) Serum Glucose 86 mg/dL (74-106) Calcium Level 10.4 mg/dL (8.7-10.4) Total Bilirubin 0.4 mg/dL (0.2-1.0) Aspartate Amino Transferase (AST) 13 U/L (13-40) Alanine Aminotransferase (ALT) 19 U/L (7-40) Alkaline Phosphatase 70 U/L (46-116) Total Protein 7.0 g/dL (5.7-8.2) Albumin 4.2 g/dL (3.2-4.8) Urine Color Light-brown (Yellow) Urine Clarity Turbid (Clear) Urine pH 6.5 (5.0-9.0) Urine Specific [place] 1.019 (1.001-1.035) Urine Protein Trace (Negative) Urine Ketones Trace (Negative) Urine Blood 3+ /uL (Negative) Urine Nitrite Negative (Negative) Urine Bilirubin Negative (Negative) Urine Urobilinogen Normal mg/dL (Negative) Urine Leukocyte Esterase 1+ /uL (Negative) Urine RBC 1359 /hpf (0 - 4) Urine Microscopic WBC 79 /HPF (0-5) Urine Squamous Epithelial Cells None seen /hpf (<5) Urine Calcium Oxalate Crystals Few (None Seen) Urine Bacteria None seen /hpf (None Seen) Urine Glucose Normal mg/dL (Normal) Test 04/10/24 05:14 04/09/24 08:36 04/08/24 11:55 04/07/24 05:26 Iron Level 43 ug/dL (50-170) Total Iron Binding Capacity 200 ug/dL (250-425) Percent Iron Saturation 21.5 % (15-50) Ferritin 214.6 ng/mL (10-291) Differential Total Cells Counted 100.0 (100) Neutrophils % (Manual) 69 (37.0-80.0) Band Neutrophils % (Manual) 3 Lymphocytes % (Manual) 13 (10.0-50.0) Monocytes % (Manual) 12 (0-12) Eosinophils % (Manual) 3 (0-7) Basophils % (Manual) 0 (0.0-2.0) Metamyelocytes % (manual) 0 Myelocytes % (Manual) 0 Promyelocytes % (Manual) 0 Blast Cells % (Manual) 0 Reactive Lymphocytes 0 Platelet Estimate Adequate Anisocytosis (manual) Slight Vancomycin Level Trough 19.4 ug/mL (5-10) Magnesium Level 2.2 mg/dL (1.6-2.6) Test 04/06/24 08:00 04/04/24 06:18 04/03/24 17:51 03/30/24 04:55 Blood Gas Spontaneous Rate 18 Erythrocyte Sedimentation Rate 48 mm/hr (0-20) Lactate Dehydrogenase 284 U/L (120-246) Troponin I High Sensitivity 8 ng/L (</=34) C-Reactive Protein High Sensitivity 10.56 mg/dL (<1.0) Coccidioides Antibody (Comp Fix) <1:2 (<1:2) Legionella pneumophila S1-6 Abs Non reactive (Non Reactive) Mycoplasma pneumoniae IgG Antibody 158 U/mL (0-99) Mycoplasma pneumoniae IgM Antibody <770 U/mL (0-769) Rheumatoid Factor <10.0 IU/mL (<14.0) Anti-Nuclear Antibody Screen Negative (Negative) HIV (1&2) Antibody Negative (Negative) Test 03/29/24 19:33 03/29/24 12:11 03/24/24 02:35 03/24/24 02:15 Stomatocytes Few SARS-CoV-2 Antigen (Rapid) Negative (NEGATIVE) Hemoglobin A1c 5.8 % A1C (<5.7) Lactic Acid Level 0.9 mmol/L (0.4-2.0) Influenza Type A Antigen Negative (Negative) Influenza Type B Antigen Negative (Negative) Test 03/23/24 20:55 03/23/24 15:50 03/23/24 14:39 Urine Test Negative (Negative) Beta HCG, Quantitative 3.8 mIU/mL (1.5-4.2) D-Dimer, Quantitative 0.63 mg/L FEU (0.0-0.49) B-Type Natriuretic Peptide 168.76 pg/mL (0-100) Other Laboratory Tests 04/16/24 09:29 Brief Hx & Hospital Course: Hospital Course: 59-year-old female with a history of hypothyroidism, hypertension, dyslipidemia, nicotine dependence, obesity, and kidney stones presented to the hospital with shortness of breath and chest pain. She had fever, chills, and body pain five days ago and was prescribed doxycycline, zinc, and vitamin D at urgent care. Her symptoms worsened, and she developed shortness of breath and chest pain two days ago. She was diagnosed with COVID-19 two days ago and reports cough, chills, fever, and generalized body pain. She denies nausea, vomiting, headache, dysuria, or recent sick contact. She has a history of appendectomy, lives with her family, is an ex-smoker, and denies other drug use. Patient was found to have acute hypoxic respiratory failure with acute respiratory distress syndrome due to multifocal pneumonia, sepsis, now patient is needing high-flow nasal cannula oxygen. Over time patient is slowly improving, patient is now on floor level of care. Was found to be needed 3L of NC oxygen while ambulating and at sleep. Medical Conditions Treated in Hospital: # insomnia # generalized anxiety disorder. # essential hypertension # acute hypoxic respiratory failure # multifocal pneumonia s/p antibiotics. # pulmonary edema, improved with lasix. # elevated D-dimer: Ruled out PE and DVT # bilateral atelectasis improved with incentive spirometry q1 hour. # antibiotic associated diarrhea improved with floraster. # UTI resolved, asymptomatic. # Traumatic urethral bleeding, no further bleeding. # sepsis secondary due to multifocal atypical pneumonias # Mild anemia, likely multifactorial # Left arm thrombophlebitis subsided. # Bilateral nonobstructive nephrolithiasis, asymptomatic # prediabetes HbA1C 5.8> weight loss likely will help # Grade I obesity # hypothyroidism on levothyroxine # osteoarthritis # chronic back pain # acute care myopathy, improved with physical therapy, rolling walker DME for further support. Medications: Continue home medications. Follow up: PCP Dr. Abernathy and Pulmonology for Sleep apnea study. Disposition: Discharged home with DME rolling walker and oxygen NC 3L while walking and sleeping. The plan was discussed with the ICU attending Dr. Estrada. Discharge planning consists of total 37 minutes of care time. The patient agreed. Discharged home. Operations or Procedures [place] [address] Ph: [phone] DIAGNOSTIC IMAGING Diagnostic Imaging Report : [id number] Signed PATIENT: LIZANDRO PENALOZA ACCT: [id number] UNIT: [id number] : 1965 LOC: ICU CENTRL ROOM / BED: 026 / A AGE / SEX: 59 / F ADM STATUS: ADM IN SERVICE 1239 ORDERING PHYSICIAN: LOUISE KING RESIDENT PROCEDURE(s): LUDVT - LT Upper DVT REASON: R/O DVT ORDER NUMBER(s): [id number], ACCESSION NUMBER(s): [id number] EXAM: US LT UPPER DVT Clinical History: R/O DVT Comparison: None Technique: Duplex Doppler evaluation of the deep venous systems of the left upper extremity from the internal jugular to the ulnar vein including color Doppler and spectral/pulsed waveform analysis was performed. Findings: Normal compressibility and color Doppler flow is seen in the left upper extremity veins including the internal jugular, subclavian, axillary, brachial, radial and ulnar veins. Superficial venous thrombus in the left cephalic vein. Impression: 1. No sonographic evidence for left upper extremity DVT. 2. Superficial venous thrombus in the left cephalic vein. ATED BY: MELINDA YORK DO DICTATED DATE/TIME: 04/12/241414 SIGNED BY: MELINDA YORK DO SIGNED DATE/TIME: 04/12/241414 CC: [address] [id number] Ph: [phone] DIAGNOSTIC IMAGING Diagnostic Imaging Report : [id number] Signed PATIENT: LIZANDRO PENALOZA ACCT: [id number] UNIT: [id number] : 1965 LOC: ICU CENTRL ROOM / BED: [facility] / A AGE / SEX: 59 / F ADM STATUS: ADM IN SERVICE 08 ORDERING PHYSICIAN: LISA ESTRADA MD PROCEDURE(s): CX2CT - CHEST WITHOUT CONTRAST REASON: PNEUMONIA ORDER NUMBER(s): [id number], ACCESSION NUMBER(s): [id number] EXAM: CT CHEST WITHOUT CONTRAST History: PNEUMONIA Comparison Study: None available TECHNIQUE: Multidetector CT of the chest was performed. Imaging was performed without IV contrast. Axial, coronal, and sagittal multiplanar reformats were obtained from the axial data set by the technologist. Radiation Dose : CTDI vol 11.18 mGy, DLP 392.96 mGy*cm. Findings: Lungs: Multifocal peripheral opacities throughout both lungs. Bilateral lower lobe consolidations with air bronchograms. Pleura: Unremarkable Heart/Great vessels: No cardiomegaly. Small pericardial effusion. Mediastinum: Unremarkable Soft tissues/Bones: Mild multilevel degenerative changes of the thoracic spine. Intravertebral hemangioma of T11. The partially visualized upper abdomen is within normal limits. Impression: 1. Multifocal pneumonia. 2. Small pericardial effusion. ATED BY: MELINDA YORK DO DICTATED DATE/TIME: 04/11/241552 SIGNED BY: MELINDA YORK DO SIGNED DATE/TIME: 04/11/241552 CC: [address] [address] Ph: [phone] DIAGNOSTIC IMAGING Diagnostic Imaging Report : [id number] Signed PATIENT: LIZANDRO PENALOZA: [id number] UNIT: [id number] : 1965 LOC: [facility] IN ICU ROOM / BED: 0264D / A AGE / SEX: 59 / F ADM STATUS: ADM IN SERVICE 24 ORDERING PHYSICIAN: KRISTOFER CHAVES PROCEDURE(s): ABPL - CT AB PEL WO CON-NO ORAL OR IV REASON: AND PAIN ORDER NUMBER(s): [id number], ACCESSION NUMBER(s): [id number] Exam: CT CT AB PEL WO CON-NO ORAL OR IV History: AND PAIN Comparison Study: None available TECHNIQUE: Multidetector CT of the abdomen and pelvis was performed from lung bases to pubic symphysis. Imaging was performed without IV contrast. Axial, coronal, and sagittal multiplanar reformats were obtained from the axial data set by the technologist. RADIATION DOSE: DLP 595.84 mGy.cm; CTDI vol 11.63 mGy. Findings: Lungs: Bibasilar multifocal consolidations with air bronchograms. Heart: No cardiomegaly or pericardial effusion. Liver: Unremarkable. Gallbladder: Unremarkable. Spleen: Unremarkable Pancreas: Unremarkable Adrenals: Unremarkable Kidneys: Bilateral nonobstructive nephrolithiasis. GI tract: Unremarkable : The urinary bladder is decompressed via Quach catheter. Vasculature: Mild aortoiliac atherosclerosis. Lymphadenopathy: Absent Peritoneum: No ascites Musculoskeletal: Mild multilevel degenerative changes of the thoracolumbar spine. T11 intravertebral hemangioma. Soft tissues: Unremarkable Impression: 1. No acute abdominopelvic abnormalities. 2. Bilateral nonobstructive nephrolithiasis. 3. Bibasilar multifocal consolidations with air bronchograms favor an infectious/inflammatory etiology. ATED BY: MELINDA YORK DO DICTATED DATE/TIME: 03/26/241819 SIGNED BY: MELINDA YORK DO SIGNED DATE/TIME: 03/26/241819 CC: [place] [address] Ph: [phone] DIAGNOSTIC IMAGING Diagnostic Imaging Report : [id number] Signed PATIENT: LIZANDRO PENALOZA ACCT: [id number] UNIT: [id number] : 1965 LOC: EAST ROOM / BED: 0244A / 3 AGE / SEX: 59 / F ADM STATUS: ADM IN SERVICE 0400 ORDERING PHYSICIAN: ALICE GARY RESDIREMBERTO PROCEDURE(s): CXR1 - CHEST XRAY 1 VIEW REASON: Pneumonia ORDER NUMBER(s): [id number], ACCESSION NUMBER(s): [id number] EXAM: XR Chest, 1 View CLINICAL INDICATION: Pneumonia TECHNIQUE: Frontal view of the chest. COMPARISON: None FINDINGS: LUNGS AND PLEURAL SPACES: See below. HEART: Cardiomegaly with pulmonary congestion and edema. Superimposed pneumonia cannot be excluded. MEDIASTINUM: Unremarkable. Normal mediastinal contour. BONES/JOINTS: Unremarkable. No acute fracture. OTHER FINDINGS: . IMPRESSION: Cardiomegaly with pulmonary congestion and edema. Superimposed pneumonia cannot be excluded. ATED BY: CONSTANCE CALDWELL MD DICTATED DATE/TIME: 03/26/24614 SIGNED BY: CONSTANCE CALDWELL MD SIGNED DATE/TIME: 03/26/24614 CC: [place] [address] Ph: [phone] DIAGNOSTIC IMAGING Diagnostic Imaging Report : [id number] Signed PATIENT: LIZANDRO PENALOZA ACCT: [id number] UNIT: [id number] : 1965 LOC: OVERFLOW ROOM / BED: 1017-ER / A AGE / SEX: 59 / F ADM STATUS: ADM IN SERVICE 0032 ORDERING PHYSICIAN: ALICE GARY RESDIREMBERTO PROCEDURE(s): BLDVT - BiLat Lower DVT REASON: raisd d dimer ORDER NUMBER(s): [id number], ACCESSION NUMBER(s): [id number] Clinical History: Elevated D-dimer Comparison: None Technique: Duplex Doppler evaluation of the deep venous system of the right and left left lower extremity from the common femoral vein to the popliteal vein including color Doppler and spectral/pulsed waveform analysis was performed. Findings: The common femoral vein demonstrates appropriate compressibility and waveform variability. There is compressibility/patency of the great saphenous vein at the proximal thigh. The femoral vein demonstrates appropriate compressibility and waveform variability. The deep femoral vein demonstrates appropriate compressibility and waveform variability. The popliteal vein demonstrates appropriate compressibility and waveform variability. There is normal compressibility at the tibioperoneal trunk. Impression: 1. No right or left deep venous thrombosis. 2. If clinical concern/symptoms persist or worsen, short-interval follow-up study is suggested. ATED BY: NATALYA HOLLEY MD DICTATED DATE/TIME: 03/24/24420 SIGNED BY: NATALYA HOLLEY MD SIGNED DATE/TIME: 03/24/24420 CC: [place] [address] Ph: [phone] DIAGNOSTIC IMAGING Diagnostic Imaging Report : [id number] Signed PATIENT: LIZANDRO PENALOZA ACCT: [id number] UNIT: [id number] : 1965 LOC: ER ROOM / BED: / AGE / SEX: 59 / F ADM STATUS: REG ER SERVICE 35 ORDERING PHYSICIAN: CONNOR ROCHA MD PROCEDURE(s): CTACH - CT ANGIO CHEST CONTRAST REASON: ro PE ORDER NUMBER(s): [id number], ACCESSION NUMBER(s): [id number] Procedure: CT CT ANGIO CHEST CONTRAST Reason for study/Clinical History: ro PE Comparison Study: None available at time of dictation. Exam Date: 03/23/2024 09:36 PM Radiation Dose Information: CT Dose: CTDI volume is 20.29 mGy. Dose-length product is 1506.22 mGy*cm Contrast: Type of contrast: Omnipaque 350 Contrast inject: 100 mL Contrast wasted:0 TECHNIQUE: After the uneventful administration of intravenous contrast intravenously, CT imaging was performed through the chest. Coronal and sagittal reformations were performed by the technologist. Sagittal and coronal MIP images were submitted for evaluation. FINDINGS: Lower Neck: Visualized portions of the thyroid gland are unremarkable. Aorta and Vasculature: Normal caliber of thoracic aorta. Lymph Nodes: No enlarged intrathoracic lymph nodes. Mediastinum: Heart size is normal. There is no pericardial effusion. The esophagus is unremarkable. Lungs: Airspace disease posterior costophrenic angles bilaterally pleural effusion or significant pneumothorax. No suspicious pulmonary nodule or mass. Musculoskeletal: No acute osseous abnormality. Osseous hemangioma at T11 Upper abdomen: Limited portions of the upper abdomen are unremarkable. IMPRESSION: 1. Airspace disease in the posterior costophrenic angles bilaterally. 2. No findings of pulmonary artery hypertension. 3. No findings of pulmonary emboli. All CT scans at this medical facility are performed using dose modulation techniques as appropriate to a performed exam including the following: Automated exposure control was utilized; adjustment of the MA and/or KV according to patient size; and use of iterative reconstruction technique. ATED BY: CHRISTY OBRIEN Jr., DO DICTATED DATE/TIME: 03/23/242222 SIGNED BY: CHRISTY OBRIEN Jr., DO SIGNED DATE/TIME: 03/23/242222 CC: [place] [address] Ph: [phone] DIAGNOSTIC IMAGING Diagnostic Imaging Report : [id number] Signed PATIENT: LIZANDRO PENALOZA ACCT: [id number] UNIT: [id number] : 1965 LOC: ER ROOM / BED: / AGE / SEX: 59 / F ADM STATUS: REG ER SERVICE 1353 ORDERING PHYSICIAN: CONNOR ROCHA MD PROCEDURE(s): CXR2 - CHEST TWO VIEWS ROUTINE REASON: sob ORDER NUMBER(s): [id number], ACCESSION NUMBER(s): [id number] EXAM: XY CHEST TWO VIEWS ROUTINE CLINICAL HISTORY: sob COMPARISON: None TECHNIQUE: Frontal and lateral view of the chest was obtained FINDINGS: Lines and Tubes: None Lungs: No focal consolidation. Pleura: No effusion. No pneumothorax. Cardiomediastinal contours: Unremarkable Bones: No acute osseous abnormality. IMPRESSION: No acute cardiopulmonary disease. ATED BY: LIO LINDSEY MD DICTATED DATE/TIME: 03/23/241425 SIGNED BY: LIO LINDSEY MD SIGNED DATE/TIME: 03/23/241425 CC: Condition at Discharge: Fair Final Diagnosis/Problems List Acute hypoxic respiratory failure. Discharge Disposition: Home Discharge Instruct/Medications Diet: Cardiac 2g Na,low cholest Activity: No Restrictions, As Tolerated Follow Up/Referral: PCP Pulm Medications: as per APR Discharge Statement: "Patient was advised to return to the ER or call 911 if any headaches, dizziness, shortness of breath, chest pain, abdominal pain, bleeding, fevers, or worsening of medical condition. Patient was counseled about treatment plan, medications, possible side effects, patientverbalized understanding. All questions were answered to the best of my ability. This discharge took greater then 30 minutes in planning, reviewing documentation, counseling the patient, and discussing with other team members." DME: Diagnosis: front wheel walker ASSESSMENT ASSESSMENT Assessment LOUISE KING RESIDENT Apr 17, 2024 13:45
[2024-04-18] MEDS ORDERED: FUROSEMIDE 20 MG TAB PO SCH (10:00)
== END 2024-04-17 18:30 | disposition home or self-care (01) | DRG 871 ==
LOC: ER 13:45 → OVERFLOW 22:42 → EAST 03-24 05:57 → TELE-E-ADS 03-26 08:59 → DOU IN ICU 03-26 10:26 → OVERFLOW 04-10 15:40 → ICU CENTRL 04-10 15:54 → TELE-WESTW 04-13 16:59
PROVIDERS: ADMIT Internal Medicine; ATTEND Emergency Medicine
PROC: 5A09357 Assistance with Respiratory Ventilation, Less than 24 Consecutive Hours, Continuous Positive Airway Pressure (ICD-10-PCS; 2024-03-26)
PROC: 5A0935A Assistance with Respiratory Ventilation, Less than 24 Consecutive Hours, High Flow/Velocity Cannula (ICD-10-PCS; 2024-03-26)
PROC: 5A0935A Assistance with Respiratory Ventilation, Less than 24 Consecutive Hours, High Flow/Velocity Cannula (ICD-10-PCS; 2024-03-27)
PROC: 5A09357 Assistance with Respiratory Ventilation, Less than 24 Consecutive Hours, Continuous Positive Airway Pressure (ICD-10-PCS; 2024-03-28)
PROC: 5A0945A Assistance with Respiratory Ventilation, 24-96 Consecutive Hours, High Flow/Velocity Cannula (ICD-10-PCS; 2024-03-28)
PROC: 05HF33Z Insertion of Infusion Device into Left Cephalic Vein, Percutaneous Approach (ICD-10-PCS; principal; 2024-04-03)
PROC: B54NZZA Ultrasonography of Left Upper Extremity Veins, Guidance (ICD-10-PCS; 2024-04-03)
PROC: 5A09357 Assistance with Respiratory Ventilation, Less than 24 Consecutive Hours, Continuous Positive Airway Pressure (ICD-10-PCS; 2024-04-03)
PROC: 5A0935A Assistance with Respiratory Ventilation, Less than 24 Consecutive Hours, High Flow/Velocity Cannula (ICD-10-PCS; 2024-04-03)
PROC: 5A09357 Assistance with Respiratory Ventilation, Less than 24 Consecutive Hours, Continuous Positive Airway Pressure (ICD-10-PCS; 2024-04-04)
PROC: 5A0935A Assistance with Respiratory Ventilation, Less than 24 Consecutive Hours, High Flow/Velocity Cannula (ICD-10-PCS; 2024-04-04)
PROC: 5A09357 Assistance with Respiratory Ventilation, Less than 24 Consecutive Hours, Continuous Positive Airway Pressure (ICD-10-PCS; 2024-04-05)
PROC: 5A0935A Assistance with Respiratory Ventilation, Less than 24 Consecutive Hours, High Flow/Velocity Cannula (ICD-10-PCS; 2024-04-05)
PROC: 5A09357 Assistance with Respiratory Ventilation, Less than 24 Consecutive Hours, Continuous Positive Airway Pressure (ICD-10-PCS; 2024-04-06)
PROC: 5A09357 Assistance with Respiratory Ventilation, Less than 24 Consecutive Hours, Continuous Positive Airway Pressure (ICD-10-PCS; 2024-04-07)
PROC: 5A09357 Assistance with Respiratory Ventilation, Less than 24 Consecutive Hours, Continuous Positive Airway Pressure (ICD-10-PCS; 2024-04-08)
PROC: 5A09357 Assistance with Respiratory Ventilation, Less than 24 Consecutive Hours, Continuous Positive Airway Pressure (ICD-10-PCS; 2024-04-09)
PROC: 5A09357 Assistance with Respiratory Ventilation, Less than 24 Consecutive Hours, Continuous Positive Airway Pressure (ICD-10-PCS; 2024-04-11)
PROC: 5A09357 Assistance with Respiratory Ventilation, Less than 24 Consecutive Hours, Continuous Positive Airway Pressure (ICD-10-PCS; 2024-04-14)
PROC: 5A09357 Assistance with Respiratory Ventilation, Less than 24 Consecutive Hours, Continuous Positive Airway Pressure (ICD-10-PCS; 2024-04-15)
PROC: 5A09357 Assistance with Respiratory Ventilation, Less than 24 Consecutive Hours, Continuous Positive Airway Pressure (ICD-10-PCS; 2024-04-16)
DX: A41.50 Gram-negative sepsis, unspecified (principal); J15.69 Pneumonia due to other Gram-negative bacteria; J80 Acute respiratory distress syndrome; N39.0 Urinary tract infection, site not specified; K52.1 Toxic gastroenteritis and colitis; E87.6 Hypokalemia; R73.03 Prediabetes; E03.9 Hypothyroidism, unspecified; I80.8 Phlebitis and thrombophlebitis of other sites; E66.9 Obesity, unspecified; G47.00 Insomnia, unspecified; T36.95XA Adverse effect of unspecified systemic antibiotic, initial encounter; F41.1 Generalized anxiety disorder; G89.29 Other chronic pain; Z20.822 Contact with and (suspected) exposure to COVID-19; E78.5 Hyperlipidemia, unspecified; F32.A Depression, unspecified; I11.0 Hypertensive heart disease with heart failure; F41.9 Anxiety disorder, unspecified; N20.0 Calculus of kidney; D64.9 Anemia, unspecified; A41.89 Other specified sepsis; I50.9 Heart failure, unspecified; Z68.33 Body mass index [BMI] 33.0-33.9, adult; Z79.899 Other long term (current) drug therapy; Z87.442 Personal history of urinary calculi; Z82.49 Family history of ischemic heart disease and other diseases of the circulatory system; Z87.891 Personal history of nicotine dependence; Z79.82 Long term (current) use of aspirin; Y92.89 Other specified places as the place of occurrence of the external cause
CPT/HCPCS: 36415; 36600; 71045; 71046; 71250; 71275; 74176; 80048; 80053; 80202; 81001; 81025; 82565; 82728; 82805; 83036; 83540; 83550; 83605; 83615; 83735; 83880; 84484; 84702; 85007; 85025; 85027; 85379; 85652; 86038; 86141; 86431; 86635; 86703; 86738; 87040; 87070; 87081; 87086; 87205; 87278; 87426; 87804; 93005; 93306; 93970; 93971; 94640; 94660; 97110; 97116; 97163; G0378; J1100; J1450; J2470; J2543

== ENCOUNTER → 2024-05-21 | Outpatient (CLI) | payer BC, OTHER ==
[~2024-05-21] MED LIST changes: +ASPI81CH59 PO; +ESCI10TA PO; -LEVO-177; -LORA-1121
== END | disposition home or self-care (01) ==
LOC: RT 08:34
PROVIDERS: ATTEND Internal Medicine Pulmonary Disease
DX: R06.00 Dyspnea, unspecified (principal); R05.9 Cough, unspecified
CPT/HCPCS: 92950; 94060; 94727; 94729

== ENCOUNTER → 2024-07-11 | Outpatient (CLI) | payer BC ==
[2024-07-11 09:52] LABS: Basophils # (auto) 0 10 ^3/uL (0-0.2); Basophils % (auto) 0.9 % (0.0-2.0); Eosinophils # (auto) 0.5 10 ^3/uL (0-0.8); Eosinophils % (auto) 8.8 % (0.0-7.0); Hematocrit 39.7 % (36.0-46.0); Hemoglobin 13.2 g/dL (12.2-16.2); Lymphocytes # (auto) 1.9 10 ^3/uL (0.4-5.4); Lymphocytes % (auto) 32.8 % (10.0-50.0); Mean Corpuscular Hemoglobin 29.2 pg (28.0-32.0); Mean Corpuscular Hgb Conc. 33.2 g/dL (32.0-36.0); Monocytes # (auto) 0.5 10 ^3/uL (0-1.3); Monocytes % (auto) 8.3 % (0.0-12.0); Neutrophils # (auto) 2.8 10 ^3/uL (1.6-8.6); Neutrophils % (auto) 49.2 % (37.0-80.0); Nucleated Red Blood Cells % 0.1 %; Platelet Count (auto) 272 10^3/uL (140-450); Red Blood Cells 4.51 10^6/uL (4.0-5.20); Red Cell Distribution Width 14.4 % (11.8-14.3); White Blood Cell 5.8 10^3/uL (4.4-10.8)
[2024-07-11 09:53] LABS: Urine Blood Negative /uL (Negative); Urine Clarity Clear (Clear); Urine Color Light-Yellow (Yellow); Urine Protein, UAD Negative (Negative); Urine Specific Gravity 1.017 (1.001-1.035); Urine Urobilinogen Normal (Negative); Urine pH 6.5 (5.0-9.0)
[2024-07-11 10:10] LABS: Alanine Aminotransferase 18 U/L (7-40); Albumin 4.5 g/dL (3.2-4.8); Alkaline Phosphatase 77 U/L (46-116); Anion Gap 9 (5-15); Aspartate Aminotransferase 16 U/L (13-40); BUN/Creatinine Ratio 18.2 (10.0-20.0); Bilirubin, Total 0.3 mg/dL (0.2-1.0); Blood Urea Nitrogen 14 mg/dL (9-23); Calcium 10.3 mg/dL (8.7-10.4); Carbon Dioxide 27 mmol/L (20-31); Chloride 106 mmol/L (98-107); Cholesterol 191 mg/dL (< 200); Glucose 99 mg/dL (74-106); HDL Cholesterol 56 mg/dL (40-59); LDL Cholesterol 121 mg/dL (< 100); Potassium 3.9 mmol/L (3.5-5.1); Sodium 142 mmol/L (136-145); Total Protein 7.2 g/dL (5.7-8.2); Triglycerides 158 mg/dL (< 150)
== END | disposition home or self-care (01) ==
LOC: LAB 08:57
PROVIDERS: ATTEND Internal Medicine
DX: E78.00 Pure hypercholesterolemia, unspecified (principal); N13.30 Unspecified hydronephrosis; I34.1 Nonrheumatic mitral (valve) prolapse; I65.23 Occlusion and stenosis of bilateral carotid arteries
CPT/HCPCS: 36415; 80053; 80061; 81003; 82306; 82607; 83036; 84443; 84550; 85025; 87086

== ENCOUNTER 2024-09-20 15:15 | Outpatient (CLI) | payer BC ==
[2024-09-20 16:10] LABS: Iron 76.0 ug/dL (50-170)
[2024-09-20 16:13] LABS: Total Iron Binding Capacity 277.0 ug/dL (250-425)
== END 2024-09-20 17:00 | disposition home or self-care (01) ==
LOC: LAB 15:15
PROVIDERS: ATTEND Dermatology
DX: L65.0 Telogen effluvium (principal)
CPT/HCPCS: 82306; 82728; 83540; 83550

== ENCOUNTER → 2024-09-21 | Day surgery (SDC) | payer BC ==
[2024-09-19 11:32] LABS: Hematocrit 39.2 % (36.0-46.0); Hemoglobin 13.2 g/dL (12.2-16.2); Mean Corpuscular Hemoglobin 29.2 pg (28.0-32.0); Mean Corpuscular Volume 86.4 fL (80.0-100.0); Nucleated Red Blood Cells % 0.0 %
[2024-09-19 11:38] LABS: Urine Protein, UAD Negative (Negative)
[2024-09-19 11:49] LABS: INR 0.97 (0.9-1.15); Partial Thromboplastin Time 26.9 SEC (24.5-34.5); Prothrombin Time 10.3 sec (9.3-11.8)
[2024-09-19 11:51] LABS: Alanine Aminotransferase 23 U/L (7-40); Alkaline Phosphatase 75 U/L (46-116); Anion Gap 10 (5-15); BUN/Creatinine Ratio 15.4 (10.0-20.0); Blood Urea Nitrogen 12 mg/dL (9-23); Carbon Dioxide 26 mmol/L (20-31); Chloride 105 mmol/L (98-107); Glucose 101 mg/dL (74-106); Potassium 3.9 mmol/L (3.5-5.1); Sodium 141 mmol/L (136-145); Total Protein 7.4 g/dL (5.7-8.2)
[2024-09-19 11:52] LABS: Bilirubin, Total 0.4 mg/dL (0.2-1.0)
[2024-09-19 11:57] LABS: Albumin 5.0 g/dL (3.2-4.8); Calcium 10.7 mg/dL (8.7-10.4)
[~2024-09-21] VITALS: Ht 157.5 cm; Wt 81.6 kg
[~2024-09-21] MED LIST changes: +HYDROmorphone HCL 2 MG/ML VL/or syr IV PRN; +KETAMINE 50mg/ML 1ml syringe ONE; +LIDOCAINE 1% INJ PF 5ML AMP ONE; +LIDOCAINE VISCOUS 2% 15ML UD ONE; +METOCLOPRAMIDE HCL 5MG/ml INJ 2ml VIAL IV ONE; +MIDAZOLAM HCL 2MG/2ML 2ml VIAL (1mg/ml) ONE; +MORPHINE SULFATE 4 MG/ML SYR/VIAL IV PRN; +MORPHINE SULFATE INJ 2 MG/ml SYRG IV PRN; +ONDANSETRON HCL 4 MG/2 ML VIAL ONE; +PROPOFOL 10 MG/ML 20 ML IV ONE; +SODIUM CHLORIDE LOCK 10 ML ONE; +SUCCINYLCHOLINE CHLORIDE 20 MG/ML 10ML VIAL IV ONE; +fentaNYL CITRATE 100 MCG/2 ML VL ONE
[2024-09-21 09:49] VITALS: PULSE 57; RESP 15; O2SAT 98
[2024-09-21 09:55] VITALS: TEMP 98.3
--- NOTE | 2024-09-21 10:05 | DVHOP2 ---
Operative Report DATE OF OPERATION: 09/21/24 PROCEDURE: Colonoscopy with cold biopsy. PREOPERATIVE INDICATION: The patient is a 59 -year-old female undergoing colonoscopy for surveillance with personal history of colon polyps POSTOPERATIVE DIAGNOSES: 1. 2-3 diminutive benign-appearing rectal excrescences were seen and removed by cold biopsy forceps 2. Trace internal hemorrhoids otherwise completely normal colonoscopy examination up to the cecum and terminal ileum PROCEDURE PERFORMED BY: Andi Marshall M.D. SCOPE: Olympus videocolonoscope. ASA CLASS: 3. PREOPERATIVE MEDICATIONS: Mac sedation Dr. Cherry PROCEDURE IN DETAIL: After obtaining an informed consent, the patient was placed on left lateral decubitus position. She was then sedated with the above medications. A rectal examination was performed that was normal. The colonoscope was then passed through the anus into the rectosigmoid and through the descending, transverse, and ascending colon up to the cecum with visualization of the appendiceal orifice, base of the cecum and the ileocecal valve. The colonoscope was then withdrawn. The distal 5 cm of the terminal ileum were normal No polyps or masses were seen. There was no colitis or clear-cut diverticular disease. In the rectum there were two or three diminutive hyperplastic type excrescences that were seen and removed by cold biopsy forceps On retroflexion and straight on view patient had trace internal hemorrhoids The patient tolerated the procedure well without difficulty. WITHDRAWAL TIME: 7 minutes QUALITY OF THE PREP: [place] Bowel Prep score: 9. COMPLICATIONS : None SPECIMENS: Rectal polyps DISPOSITION: Stable D/C to home PLAN: 1. Repeat colonoscopy base on biopsy result likely in five years 2. Resume GI soft diet advance as tolerated 3. Increase fluid and fiber intake 4. Outpatient follow up with me in 2-4 weeks to review results and discuss further management ANDI MARSHALL MD Sep 21, 2024 10:05
--- NOTE | 2024-09-21 10:08 | DVHOP2 ---
Operative Report DATE OF OPERATION: 09/21/24 PROCEDURE: Upper Endoscopy with biopsy. PREOPERATIVE INDICATION: The patient is a 59 -year-old female undergoing endoscopy for chronic GERD POSTOPERATIVE DIAGNOSES: 1. 2-3 cm sliding-type hiatal hernia with slightly irregular squamocolumnar junction grade a erosive esophagitis 2. Mild antral gastritis otherwise normal examination up to the 2nd and 3rd part of the duodenum PROCEDURE PERFORMED BY: Andi Marshall GI NURSE: Hector SCOPE: Olympus videoendoscope. ASA CLASS: 3. PREOPERATIVE MEDICATIONS: Dr. Dilip Butt PROCEDURE IN DETAIL: After obtaining an informed consent, the patient was placed on left lateral decubitus position. The patient was then sedated with the above medications. A bite block was placed between her teeth. The endoscope was then passed through the oropharynx, into the esophagus, and through the stomach and pylorus up to the second and third part of the duodenum. The endoscope was then withdrawn. The 2nd and 3rd part of the duodenum and the duodenal bulb were normal. Duodenal biopsies were obtained The pre-pyloric area and antrum showed mild gastritis. Gastric biopsies were obtained. On retroflexion the fundus cardia and angularis were normal. The endoscope was then withdrawn into the distal esophagus Patient had a 2-3 cm sliding-type hiatal hernia with irregular squamocolumnar junction grade a erosive esophagitis. GE junction biopsies were obtained. The remaining distal and proximal esophagus and oropharynx were unremarkable. The patient tolerated the procedure well without difficulty. COMPLICATIONS : None SPECIMENS: Biopsies Gastric biopsies GE junction biopsies DISPOSITION: Stable D/C to home PLAN: 1. Await for biopsy result 2. Will place pt on Protonix 40 mg p.o. daily 3. Lifestyle and dietary modifications for GERD 4. DC aspirin NSAIDs smoking alcohol 5. Outpatient follow up with me in 4-6 weeks to review results and discuss further management 6. Start with soft mechanical diet and advance as tolerated ANDI MARSHALL MD Sep 21, 2024 10:08
[2024-09-21 10:20] VITALS: BP 133/72; PULSE 67; RESP 15; O2SAT 96
== END | disposition home or self-care (01) ==
LOC: GI 08:15
PROVIDERS: ATTEND Internal Medicine Gastroenterology
DX: Z12.11 Encounter for screening for malignant neoplasm of colon (principal); K21.00 Gastro-esophageal reflux disease with esophagitis, without bleeding; K62.1 Rectal polyp; K64.8 Other hemorrhoids; Z86.0100 Personal history of colon polyps, unspecified; Z87.891 Personal history of nicotine dependence; K44.9 Diaphragmatic hernia without obstruction or gangrene
CPT/HCPCS: 36415; 43239; 45380; 80053; 81001; 85025; 85610; 85730; 88305; 88342; J0330; J2250; J2405; J2704; J3010; J7030